=== PATIENT | female | born 1980 | race Caucasian/White ===

== ENCOUNTER 2017-04-03 15:50 | Inpatient (IN) | payer MEDICAID ==
--- NOTE | 2017-04-03 16:22 | CPEKG ---
Heart Rate: 153 RR Interval: 392 P-R Interval: 152 QRSD Interval: 100 QT Interval: 247 QTC Interval: 395 P [place]: 83 QRS [place]: 138 T Wave [place]: -73 EKG Severity - ABNORMAL ECG - EKG Impression: SINUS TACHYCARDIA EKG Impression: RVH WITH SECONDARY REPOLARIZATION ABNORMALITY Electronically Signed By: Adan Trujillo 03-Apr-2017 21:19:50
[2017-04-03] MEDS ORDERED: NS 1,000 ML IV ONE ×3 (16:27)
--- NOTE | 2017-04-03 16:27 | EDPHY ---
H & P Time Seen by Provider: 04/03/17 16:06 HPI/ROS: Chief complaint. Altered mental status HPI. Patient is a 36-year-old female here with her parents. Last seen normal 3 days ago. She lives with her parents but they say she really comes out of her room. However today she was downstairs and talking to imaginary people and telling them that her her sister was dying. She has been tearing up magazines in her room. No injury or trauma. Parents are unaware of drugs or alcohol. She began Prozac 1 month ago and it seemed to be helping. Patient is speaking nonsensically but tells me she has some pain in the right upper quadrant of her abdomen. ROS Constitutional. Generalized weakness Eyes. no problems with vision ENT. no sore throat, no nasal drainage Cardiovascular. no chest pain Respiratory. no shortness of breath, no cough Abdominal. Abdominal pain . no problems urinating MS. no calf pain/swelling, no neck/back pain, no joint pain Skin. no rash Lymph. no swollen glands Neuro. Altered mental status Past Medical/Surgical History: Past medical history is significant for autoimmune hepatitis, hypertension, pancreatitis, chronic abdominal pain Social History: Single, nonsmoker, no alcohol Smoking Status: Never smoked Physical Exam: General Appearance: Alert well-developed female moderate distress vital signs show the patient be afebrile. Heart rate 156 Eyes: Pupils equal and round no pallor or injection. ENT, mucous membranes are dry Respiratory: There are no retractions, lungs are clear to auscultation. Cardiovascular: Regular rate and rhythm. Gastrointestinal: Abdomen is soft right upper quadrant tenderness Neurological: Awake and alert, sensory and motor exams grossly normal. Skin: Warm and dry, no rashes. Musculoskeletal: Neck is supple nontender. Extremities symmetrical, full range of motion. Psychiatric: Patient is not oriented to place or time. There is mild agitation Constitutional: Initial Vital Signs Temperature (C) 36.9 C 04/03/17 15:58 Heart Rate 156 H 04/03/17 15:58 Respiratory Rate 24 H 04/03/17 15:58 Blood Pressure 140/97 H 04/03/17 15:58 O2 Sat (%) 95 04/03/17 15:58 O2 Delivery Mode Room Air Allergies/Adverse Reactions: metoclopramide HCl [From Reglan] Allergy (Unknown, Verified 04/03/17 15:54) prochlorperazine edisylate [From Compazine] Allergy (Unknown, Verified 04/03/17 15:54) prochlorperazine maleate [From Compazine] Allergy (Unknown, Verified 04/03/17 15 :54) promethazine HCl [From Phenergan] Allergy (Unknown, Verified 04/03/17 15:54) Home Medications: Medication Instructions Recorded Diazepam [Valium 5 MG (RX)] 5 mg PO DAILY 09/13/12 Norgestimate-Ethinyl Estradiol 1 each PO DAILY 09/13/12 [Ortho-Cyclen] ONDANSETRON HCL [Zofran 8 mg] 8 mg PO Q8 PRN 09/13/12 Oxycodone HCl/Acetaminophen 1.5 each PO TID 09/13/12 [Percocet 10-325 mg Tablet] Pantoprazole Sodium [Protonix 40mg 40 mg PO DAILY 09/13/12 (RX)] Venlafaxine Xr [Effexor Xr 75MG 225 mg PO DAILY 09/13/12 (RX)] LORazepam [Ativan 1 mg (RX)] 1 - 2 mg PO .Q 6 HRS PRN #12 tab 10/06/12 Ondansetron Odt [Zofran Odt 4 mg 4 mg PO Q4 PRN #15 tab 10/06/12 (RX)] Prozac 20 MG (*) 04/03/17 Medical Decision Making - Diagnostics EKG Interpretation: EKG interpreted by me shows sinus tachycardia with normal interval and axis. QRS is normal. There is no obvious ST elevation or depression. No arrhythmia. Ventricular response is 153 Imaging Results: Imaging Impressions Chest X-Ray 04/03/17 16:30 Impression: Negative. Abdomen Ultrasound 04/03/17 17:20 Impression: Previous cholecystectomy. No significant abnormality seen within the abdomen. Findings discussed with Duy Romero M.D. at 19:37 hour, 04/03/2017. Head CT 04/03/17 17:20 Impression: 1. Normal CT brain without contrast. 2. Consider MRI of the brain without and with contrast enhancement, if there is continued clinical concern. Findings and recommendations discussed with Emergency Department physician, DUY ROMERO at 18:23 hour, 04/03/2017. Final report concurs with initial preliminary interpretation. One-view chest x-ray interpreted by me is negative Noncontrast head CT reviewed by me and discussed with radiologist as normal Procedures: IV normal saline. A 2nd IV is started to be able to better rehydrate the patient as there is obvious severe dehydration and the patient is quite tachycardia 3 L of saline are given. Ativan IV. Procedure: Lumbar puncture. Indication: Altered mental status After verbal informed consent from patient explaining the risks including infection, bleeding, and neurologic damage, a lumbar puncture was performed after the patient was prepped and draped in the usual fashion. The back was anesthetized with 1% lidocaine. Approximately 4 cc of clear fluid was obtained. Opening pressure was not obtained. There were no complications. The procedure was performed by myself. ED Course/Re-evaluation: Re-evaluation at 4:30 a.m. heart rate is down to 126. Patient looks better. She still complains of visual hallucinations. 2nd lactate is ordered as the initial is elevated. Patient is cultured. I have discussed and consulted with Dr. Veloz, hospitalist who will see the patient in the ED and agrees to the admission Patient remained stable on re-evaluation with heart rate about 112-114. Blood pressure stable. She is more alert. Serial evaluations patient is improving. Differential Diagnosis: I considered sepsis, substance it ingestion and withdrawal, intracranial bleeding, meningitis, other sources of infection Critical Care Time: Critical care time exclusive of procedures 1 hour - Data Points Laboratory Results: Laboratory Results 04/03/17 16:15 04/03/17 16:15 04/03/17 04/03/17 04/03/17 17:15 16:48 16:15 WBC RBC Hgb Hct MCV MCH MCHC RDW Plt Count MPV Neut % (Auto) Lymph % (Auto) [place] % (Auto) Eos % (Auto) Baso % (Auto) Nucleat RBC Rel Count Absolute Neuts (auto) Absolute Lymphs (auto) Absolute Monos (auto) Absolute Eos (auto) Absolute Basos (auto) Absolute Nucleated RBC Immature Gran % Immature Gran # PT INR APTT VBG Lactic Acid 6.9 mmol/L H mmol/L (0.7-2.1) Sodium Potassium Chloride Carbon Dioxide Anion Gap BUN Creatinine Estimated GFR Glucose Calcium Total Bilirubin Conjugated Bilirubin Unconjugated Bilirubin AST ALT Alkaline Phosphatase Troponin I Total Protein Albumin Lipase Beta HCG, Qual Urine Color HITESH REJ Urine Appearance HAZY Not Reported Urine pH 6.0 Not Reported (5.0-7.5) Ur Specific [place] 1.019 Not Reported (1.002-1.030) Urine Protein 2+ H Not Reported (NEGATIVE) Urine Ketones 1+ H Not Reported (NEGATIVE) Urine Blood 3+ H Not Reported (NEGATIVE) Urine Nitrate NEGATIVE Not Reported (NEGATIVE) Urine Bilirubin NEGATIVE Not Reported (NEGATIVE) Urine Urobilinogen NEGATIVE EU EU Not Reported (0.2-1.0) Ur Leukocyte Esterase NEGATIVE Not Reported (NEGATIVE) Urine RBC 1-3 /hpf /hpf Not Reported (0-3) Urine WBC 1-3 /hpf /hpf REJ (0-3) Ur Epithelial Cells TRACE /lpf /lpf Not Reported (NONE-1+) Amorphous Sediment PRESENT /hpf /hpf (NONE-1+) Urine Bacteria TRACE /hpf H /hpf (NONE SEEN) Urine Mucus TRACE /lpf /lpf (NONE-1+) Urine Glucose NEGATIVE Not Reported (NEGATIVE) Urine Opiates Screen NON-NEGATIVE H (NEGATIVE) Acetaminophen Urine Barbiturates NEGATIVE (NEGATIVE) Ur Phencyclidine Scrn NEGATIVE (NEGATIVE) Ur Amphetamine Screen NEGATIVE (NEGATIVE) U Benzodiazepines Scrn NON-NEGATIVE H (NEGATIVE) Urine Cocaine Screen NEGATIVE (NEGATIVE) U Marijuana (THC) Screen NEGATIVE (NEGATIVE) Ethyl Alcohol 04/03/17 04/03/17 04/03/17 16:15 16:15 16:15 WBC 22.99 10^3/uL H 10^3/uL (3.80-9.50) RBC 6.14 10^6/uL H 10^6/uL (4.18-5.33) Hgb 17.6 g/dL H g/dL (12.6-16.3) Hct 55.4 % H % (38.0-47.0) MCV 90.2 fL fL (81.5-99.8) MCH 28.7 pg pg (27.9-34.1) MCHC 31.8 g/dL L g/dL (32.4-36.7) RDW 16.0 % H % (11.5-15.2) Plt Count 378 10^3/uL 10^3/uL (150-400) MPV 11.5 fL fL (8.7-11.7) Neut % (Auto) 87.8 % H % (39.3-74.2) Lymph % (Auto) 5.0 % L % (15.0-45.0) [place] % (Auto) 6.2 % % (4.5-13.0) Eos % (Auto) 0.0 % L % (0.6-7.6) Baso % (Auto) 0.3 % % (0.3-1.7) Nucleat RBC Rel Count 1.0 % H % (0.0-0.2) Absolute Neuts (auto) 20.20 10^3/uL H 10^3/uL (1.70-6.50) Absolute Lymphs (auto) 1.15 10^3/uL 10^3/uL (1.00-3.00) Absolute Monos (auto) 1.42 10^3/uL H 10^3/uL (0.30-0.80) Absolute Eos (auto) 0.00 10^3/uL L 10^3/uL (0.03-0.40) Absolute Basos (auto) 0.07 10^3/uL 10^3/uL (0.02-0.10) Absolute Nucleated RBC 0.22 10^3/uL H 10^3/uL (0-0.01) Immature Gran % 0.7 % % (0.0-1.1) Immature Gran # 0.15 10^3/uL H 10^3/uL (0.00-0.10) PT 15.9 SEC H SEC (12.0-15.0) INR 1.27 H (0.83-1.16) APTT 26.3 SEC SEC (23.0-38.0) VBG Lactic Acid Sodium Potassium Chloride Carbon Dioxide Anion Gap BUN Creatinine Estimated GFR Glucose Calcium Total Bilirubin Conjugated Bilirubin Unconjugated Bilirubin AST ALT Alkaline Phosphatase Troponin I Total Protein Albumin Lipase Beta HCG, Qual NEGATIVE Urine Color Urine Appearance Urine pH Ur Specific [place] Urine Protein Urine Ketones Urine Blood Urine Nitrate Urine Bilirubin Urine Urobilinogen Ur Leukocyte Esterase Urine RBC Urine WBC Ur Epithelial Cells Amorphous Sediment Urine Bacteria Urine Mucus Urine Glucose Urine Opiates Screen Acetaminophen Urine Barbiturates Ur Phencyclidine Scrn Ur Amphetamine Screen U Benzodiazepines Scrn Urine Cocaine Screen U Marijuana (THC) Screen Ethyl Alcohol 04/03/17 16:15 WBC RBC Hgb Hct MCV MCH MCHC RDW Plt Count MPV Neut % (Auto) Lymph % (Auto) [place] % (Auto) Eos % (Auto) Baso % (Auto) Nucleat RBC Rel Count Absolute Neuts (auto) Absolute Lymphs (auto) Absolute Monos (auto) Absolute Eos (auto) Absolute Basos (auto) Absolute Nucleated RBC Immature Gran % Immature Gran # PT INR APTT VBG Lactic Acid Sodium 152 mEq/L H mEq/L (134-144) Potassium 4.4 mEq/L mEq/L (3.5-5.2) Chloride 110 mEq/L mEq/L (97-110) Carbon Dioxide 12 mEq/l L mEq/l (22-31) Anion Gap 30 mEq/L H mEq/L (8-16) BUN 25 mg/dL H mg/dL (7-23) Creatinine 1.7 mg/dL H mg/dL (0.6-1.0) Estimated GFR 34 Glucose 209 mg/dL H mg/dL (70-100) Calcium 10.6 mg/dL H mg/dL (8.5-10.4) Total Bilirubin 2.6 mg/dL H mg/dL (0.1-1.4) Conjugated Bilirubin 0.7 mg/dL H mg/dL (0.0-0.5) Unconjugated Bilirubin 1.9 mg/dL H mg/dL (0.0-1.1) AST 1723 IU/L H IU/L (14-46) ALT 461 IU/L H IU/L (9-52) Alkaline Phosphatase 260 IU/L H IU/L (38-126) Troponin I 0.056 ng/mL H ng/mL (0-0.034) Total Protein 8.4 g/dL H g/dL (6.3-8.2) Albumin 5.1 g/dL H g/dL (3.5-5.0) Lipase 200.0 IU/L IU/L (23-300) Beta HCG, Qual Urine Color Urine Appearance Urine pH Ur Specific [place] Urine Protein Urine Ketones Urine Blood Urine Nitrate Urine Bilirubin Urine Urobilinogen Ur Leukocyte Esterase Urine RBC Urine WBC Ur Epithelial Cells Amorphous Sediment Urine Bacteria Urine Mucus Urine Glucose Urine Opiates Screen Acetaminophen < 10 mcg/mL L mcg/mL (10.0-30.0) Urine Barbiturates Ur Phencyclidine Scrn Ur Amphetamine Screen U Benzodiazepines Scrn Urine Cocaine Screen U Marijuana (THC) Screen Ethyl Alcohol < 10 mg/dL mg/dL (0-10) Medications Given: Discontinued Medications Fentanyl (Sublimaze) 100 mcg IVP EDNOW ONE Stop: 04/03/17 19:28 Last Admin: 04/03/17 19:41 Dose: 100 mcg Sodium Chloride (Ns) 1,000 mls @ 0 mls/hr IV EDNOW ONE; Wide Open PRN Reason: Protocol Stop: 04/03/17 16:28 Last Admin: 04/03/17 16:37 Dose: 1,000 mls Sodium Chloride (Ns) 1,000 mls @ 0 mls/hr IV EDNOW ONE; Wide Open PRN Reason: Protocol Stop: 04/03/17 16:28 Last Admin: 04/03/17 16:37 Dose: 1,000 mls Sodium Chloride (Ns) 1,000 mls @ 0 mls/hr IV ONCE ONE; Wide Open PRN Reason: Protocol Stop: 04/03/17 16:28 Last Admin: 04/03/17 16:37 Dose: 1,000 mls Lorazepam (Ativan Injection) 1 mg IVP EDNOW ONE Stop: 04/03/17 17:31 Last Admin: 04/03/17 17:39 Dose: 1 mg Lorazepam (Ativan Injection) 1 mg IVP EDNOW ONE Stop: 04/03/17 19:28 Last Admin: 04/03/17 19:42 Dose: 1 mg Departure - Departure Disposition: [facility] Inpatient Acute Clinical Impression: Altered mental status, unspecified Qualifiers: Altered mental status type: delirium Qualified Code(s): R41.0 - Disorientation , unspecified Condition: Fair
[2017-04-03 16:36] LABS: % IMMATURE GRANULYOCYTES 0.7 % (0.0-1.1); ABSOLUTE IMMATURE GRANULOCYTES 0.15 10^3/uL (0.00-0.10); ABSOLUTE NRBC COUNT 0.22 10^3/uL (0-0.01); ADD DIFF? NO; ADD MORPH? NO; ADD SCAN? NO; ATYPICAL LYMPHOCYTE FLAG 0 (0-99); FRAGMENT RBC FLAG 0 (0-99); HEMATOCRIT 55.4 % (38.0-47.0); HEMOGLOBIN 17.6 g/dL (12.6-16.3); LEFT SHIFT FLG 10 (0-99); LIPEMIA HEMOLYSIS FLAG 80 (0-99); MEAN CELL HEMOGLOBIN 28.7 pg (27.9-34.1); MEAN CELL HEMOGLOBIN CONCENTR. 31.8 g/dL (32.4-36.7); MEAN CELL VOLUME 90.2 fL (81.5-99.8); MEAN PLATELET VOLUME 11.5 fL (8.7-11.7); PLATELET CLUMPS FLAG 0 (0-99); PLATELET COUNT 378 10^3/uL (150-400); RED BLOOD CELL COUNT 6.14 10^6/uL (4.18-5.33)
[2017-04-03 16:43] LABS: ALANINE AMINOTRANSFERASE 461 IU/L (9-52); ALBUMIN 5.1 g/dL (3.5-5.0); ALKALINE PHOSPHATASE 260 IU/L (38-126); ANION GAP 30 mEq/L (8-16); BILIRUBIN,TOTAL 2.6 mg/dL (0.1-1.4); BILIRUBIN-CONJUGATED 0.7 mg/dL (0.0-0.5); BILIRUBIN-UNCONJUGATED 1.9 mg/dL (0.0-1.1); CALCIUM 10.6 mg/dL (8.5-10.4); CARBON DIOXIDE 12 mEq/l (22-31); CHLORIDE 110 mEq/L (97-110); CREATININE 1.7 mg/dL (0.6-1.0); ETHANOL SERUM < 10 mg/dL (0-10); GLOMERULAR FILTRATION RATE 34; GLUCOSE 209 mg/dL (70-100); POTASSIUM 4.4 mEq/L (3.5-5.2); SODIUM 152 mEq/L (134-144); TOTAL PROTEIN 8.4 g/dL (6.3-8.2)
[2017-04-03 16:50] LABS: APTT 26.3 SEC (23.0-38.0); INR 1.27 (0.83-1.16); PROTIME(PATIENT) 15.9 SEC (12.0-15.0)
[2017-04-03 16:54] LABS: TROPONIN I 0.056 ng/mL (0-0.034)
[2017-04-03 17:02] LABS: ASPARTATE AMINOTRANSFERASE 1723 IU/L (14-46)
[2017-04-03 17:25] LABS: COLOR AMBER; LEUKOCYTE ESTERASE,URINE NEGATIVE (NEGATIVE); NITRITE,URINE NEGATIVE (NEGATIVE)
[2017-04-03] MEDS ORDERED: LORazepam 2 MG/ML INJ IVP ONE ×2 (17:30→19:27)
[2017-04-03 17:34] LABS: AMORPHOUS PRESENT /hpf (NONE-1+); BACTERIA TRACE /hpf (NONE SEEN); MUCUS TRACE /lpf (NONE-1+)
[2017-04-03 17:51] LABS: LACGHOST ORDER
[2017-04-03] MEDS ORDERED: ACETAMINOPHEN 325 MG TAB PO PRN (18:02)
[2017-04-03] MEDS ORDERED: ONDANSETRON 4 MG/2 ML VIAL IVP PRN (18:02)
[2017-04-03] MEDS ORDERED: fentaNYL 100 MCG/2 ML INJ IVP ONE (19:27)
[2017-04-03] MEDS ORDERED: D50W 25 GM/50 ML SYR IVP PRN (19:42)
[2017-04-03] MEDS: NS 1,000 ML IV SCH (19:42)
[2017-04-03 19:44] LABS: PROCALCITONIN 9.81 ng/mL (0.02-0.10)
[2017-04-03 19:52] LABS: ANION GAP 14 mEq/L (8-16); CALCIUM 8.4 mg/dL (8.5-10.4); CARBON DIOXIDE 16 mEq/l (22-31); CHLORIDE 120 mEq/L (97-110); CREATININE 1.4 mg/dL (0.6-1.0); GLOMERULAR FILTRATION RATE 43; GLUCOSE 123 mg/dL (70-100); POTASSIUM 3.8 mEq/L (3.5-5.2); SODIUM 150 mEq/L (134-144)
[2017-04-03] MEDS ORDERED: D10W 250 ML PRN HYPOGLYCEMIA IV (20:00)
[2017-04-03 20:02] LABS: TROPONIN I 0.172 ng/mL (0-0.034)
--- NOTE | 2017-04-03 20:17 | GHP ---
[f rep st] HISTORY AND PHYSICAL DATE OF ADMISSION: 04/03/2017 CHIEF COMPLAINT: Encephalopathy, hallucinations, tachycardia. HPI: a 36-year-old female with prior diagnosis of autoimmune hepatitis, depression/anxiety, IBS who was brought in by her mother for confusion. She was last seen normal 3 days ago by her parents; she lives in the downstairs portion of their home. She called her mom down today saying she was confused. She was hallucinating and seeing her sister who lives out of states. "People outside having sex". She has also been ripping up magazines into small pieces. In the ER, she told me she was seeing people in the corner of the room. c/o fever, dysuria, and sore throat. Has been having nausea and nonbloody emesis which is standard for her "flares of autoimmune hepatitis." She started Prozac 3 weeks ago and on chronic pain medications including MS Contin and Percocet. Denies drugs or alcohol use. Denies any suicidal or homicidal ideations. In 2013, her fiance passed from brain cancer and has had issues with depression since that time; recently started Prozac three weeks ago. She works in an animal alf volunteering was scratched on left arm a few days ago. Also had a fall tripping over a large dog. Denies Tylenol use and occasional Advil. It is unclear if has true diagnosis of autoimmune hepatitis. Was seen by GI at [facility] a week ago and had normal LFTs at that time and negative autoimmune labs. (Dr Banuelos reviewed these OSH records for me) and will obtain full records. They had planned for a CT scan of the abdomen. REVIEW OF SYSTEMS: I completed a 10-point review of systems, negative except as noted in HPI. PAST MEDICAL HISTORY: IBS, depression/anxiety, autoimmune hepatitis in 2000. Recently seen by a [employer] at [facility]. Chronic abdominal pain. PAST SURGICAL HISTORY: Cholecystectomy. SOCIAL HISTORY: Lives in [place] with her parents. She denies tobacco or illicits. Rare alcohol. FAMILY HISTORY: Diabetes, maternal grandmother with congestive heart failure. MEDICATIONS: MS Contin 30 t.i.d., Ativan 1 mg last prescribed 03/27, Percocet, Prozac started 3 weeks ago. No longer takes Effexor. Pepto p.r.n. and Advil p.r.n. PHYSICAL EXAM: VITAL SIGNS: Temperature 36.9, blood pressure 140/97, heart rate 150s rule out 135, respirations 18-24 and 95% on room air. GENERAL: Ill appearing, diaphoretic. HEENT: Pupils enlarged, right greater than left but reactive. Very dry mucous membranes. Oropharynx is clear. No ulcerations. CV : Tachy but regular. No murmurs, gallops, or rubs. LUNGS: Clear. No wheezes or crackles. ABDOMEN: Epigastric tenderness. Right upper quadrant tenderness with minimal palpation. Positive bowel sounds. : zavala in place with brown urine No suprapubic tenderness but, bilateral CVA tenderness. MUSCULOSKELETAL: 5/5 upper and lower extremity strength. SKIN: Bruising over bilateral knees, left shoulder. Left forearm with several scratch armendariz scabbed over. Minimal surrounding erythema, but tender with palpation. NEURO: 2 through 12 intact. Horizontal nystagmus. Negative asterixis. Follows commands. Normal sensation to touch. PSYCHIATRIC: She is alert to place, year , not to the month. LABS: Sodium 152, potassium 4.4, chloride 110, carbon dioxide 12, anion gap 32 , BUN is 25, creatinine is 1.7, glucose 209, calcium 10.6, total bilirubin 2.6, conjugated 0.7, unconjugated 1.9, AST 1723, ALT 461, alkaline phosphatase 260. Troponin 0.056. Total protein 8.4, albumin 5.1. Lipase 200. Procalcitonin pending. CK is pending. WBC is 22, hemoglobin 17, hematocrit 54, platelets 378. INR is 1.2, PT 15, PTT 26. Lactate 6.9, repeat 4.7. Urinalysis: +2 protein, +1 ketones, +3 blood. Tox: Negative Tylenol and alcohol. Positive for opioids and benzodiazepines. Hep serologies are pending. Head CT: Normal CT brain without contrast. Chest x-ray, personally reviewed by me. Lungs are clear. No evidence of effusion, edema or opacity. EKG personally reviewed by me. Sinus tach, RVH. ASSESSMENT AND PLAN: 1. Severe sepsis: WBC 22, tachy and fever. UA, CXR. Procalcitonin >9. I suspect source could be cat scratch on left arm and concern for Pasteurella. I discussed antimicrobials with Dr. Doss who recommended Vanc and Meropenem. Blood cultures pending, 2. Acute encephalopathy: due to sepsis vs medications. Recently started Prozac. CT head was negative. Urinalysis and chest x-ray negative. Blood cultures are pending. Dr. Romero will perform LP as there are case studies of Pasteurella with meningitis. Pharm confirm home med list. 3. Leukocytosis: WBC 22, no infectious source found at this time, but again, cat scratch is concerning. Plan as stated above. Blood cultures pending. 4. Acute kidney injury: due to rhabdo and dehydration. Aggressive IVFs, repeat. 5. Rhabdo: CK>20372.. Likely due to sepsis. Prozac may contribute since recently started. Aggressive IVFs, monitie K, Phos 6. Transaminitis. Suspect due to sepsis, but prozac recently started.. Labs a week ago were normal per Dr. Banuelos's report. Tylenol level is negative. Abdominal ultrasound with Doppler negative for thrombosis and hep serologies negative. 7. Tachycardia: Heart rate up to 150s. Due to infection, dehydration. Responding to fluids. Monitor on telemetry. Could consider benzo withdrawal but she was only prescribed 9 tabs a week ago. 8. History of autoimmune hepatitis: recently seen by GI at [facility] last week. At that time, LFTs and autoimmune labs normal. Unclear if this is a true diagnosis. Will obtain these records. 9. MetabolicaAnion gap acidosis: due to lactic acid production with rhabdo , plus sepsis, dehydration. lactate elevated at 6.9 --> 4.7 with IVFs. Check an ABG, a serum osm, repeat lactate 10. Hypovolemic hypernatremia: Sodium is elevated at 152. Patient is very dry on exam along with LINDA. She received 3 L of fluid in the emergency room. We will repeat BMP. 11. Indeterminate troponin: suspect demand in setting of sepsis. Denies CP. Trend trops. TTE in morning for WMA 12. Hyperglycemia. Serial glucose, sliding scale insulin. 13. Diet: N.p.o. 14. DVT prophylaxis. SCDs. DISPOSITION: Patient warrants ICU admission given acute encephalopathy, tachycardia and transaminitis warranting telemetry and further imaging. Critical care time spent: 90 min. 30 min bedside with patient. remaining time d/ w Dr. Romero, Lakisha Short and hx from mother /[id number]/MODL MTDD
[2017-04-03 20:21] LABS: LACTATE DEHYDROGENASE > 10000 IU/L (313-618)
[2017-04-03 20:41] LABS: CK-MB INTERPRETATION NEGATIVE (NEGATIVE)
[2017-04-03 20:45] LABS: CSF APPEARANCE CLEAR (CLEAR); CSF COLOR COLORLESS (COLORLESS); WBC, CSF 0 /mm3 (0-5)
[2017-04-03 20:49] LABS: PROTEIN, CSF 27 mg/dL (12-60)
[2017-04-03 20:50] LABS: CSF SUPERNATANT COLORLESS (COLORLESS)
[2017-04-03] MEDS: MEROPENEM 500 MG in NS 100 ML IV SCH ×2 (20:50→21:14)
[2017-04-03] MEDS: VANCOMYCIN HCL/NORMAL SALINE 250 ML IV SCH (22:33)
[2017-04-04 00:13] LABS: TROPONIN I 0.172 ng/mL (0-0.034)
[2017-04-04 00:38] LABS: LACTATE DEHYDROGENASE > 10000 IU/L (313-618)
[2017-04-04] MEDS: NS 1,000 ML IV SCH ×2 (01:04→05:33)
[2017-04-04] MEDS: HYDROmorphONE/DILAUDID 1 MG/ML SYR IVP PRN (01:04)
[2017-04-04 01:21] LABS: ANION GAP 12 mEq/L (8-16); CALCIUM 8.2 mg/dL (8.5-10.4); CARBON DIOXIDE 19 mEq/l (22-31); CHLORIDE 121 mEq/L (97-110); CREATININE 1.8 mg/dL (0.6-1.0); GLOMERULAR FILTRATION RATE 32; GLUCOSE 104 mg/dL (70-100); POTASSIUM 3.8 mEq/L (3.5-5.2); SODIUM 152 mEq/L (134-144)
[2017-04-04 01:24] LABS: CALCULATED OXYGEN SATURATION 62 % (92-95); O2 CONCENTRATIION 21 % (0-100)
[2017-04-04 02:06] LABS: CK-MB INTERPRETATION NEGATIVE (NEGATIVE)
[2017-04-04 05:43] LABS: % IMMATURE GRANULYOCYTES 0.7 % (0.0-1.1); ABSOLUTE IMMATURE GRANULOCYTES 0.18 10^3/uL (0.00-0.10); ADD DIFF? NO; ADD MORPH? NO; ADD SCAN? NO; ATYPICAL LYMPHOCYTE FLAG 0 (0-99); FRAGMENT RBC FLAG 20 (0-99); HEMATOCRIT 36.6 % (38.0-47.0); HEMOGLOBIN 11.8 g/dL (12.6-16.3); LEFT SHIFT FLG 40 (0-99); LIPEMIA HEMOLYSIS FLAG 80 (0-99); MEAN CELL HEMOGLOBIN 28.6 pg (27.9-34.1); MEAN CELL HEMOGLOBIN CONCENTR. 32.2 g/dL (32.4-36.7); MEAN CELL VOLUME 88.8 fL (81.5-99.8); PLATELET CLUMPS FLAG 0 (0-99); PLATELET COUNT 187 10^3/uL (150-400); RED BLOOD CELL COUNT 4.12 10^6/uL (4.18-5.33); RED CELL DISTRIBUTION WIDTH 14.9 % (11.5-15.2)
[2017-04-04 05:49] LABS: ALANINE AMINOTRANSFERASE 477 IU/L (9-52); ALBUMIN 2.7 g/dL (3.5-5.0); ALKALINE PHOSPHATASE 126 IU/L (38-126); ANION GAP 13 mEq/L (8-16); BILIRUBIN,TOTAL 1.3 mg/dL (0.1-1.4); CALCIUM 7.5 mg/dL (8.5-10.4); CARBON DIOXIDE 16 mEq/l (22-31); CHLORIDE 120 mEq/L (97-110); CREATININE 1.9 mg/dL (0.6-1.0); GLOMERULAR FILTRATION RATE 30; GLUCOSE 76 mg/dL (70-100); POTASSIUM 3.8 mEq/L (3.5-5.2); SODIUM 149 mEq/L (134-144); TOTAL PROTEIN 4.9 g/dL (6.3-8.2)
[2017-04-04 06:22] LABS: ASPARTATE AMINOTRANSFERASE 1989 IU/L (14-46)
[2017-04-04 06:42] LABS: CK-MB INTERPRETATION NEGATIVE (NEGATIVE)
[2017-04-04] MEDS: ONDANSETRON DISINTEGRATING 4 MG TAB PO PRN (08:36)
[2017-04-04] MEDS: VANCOMYCIN HCL/NORMAL SALINE 250 ML IV SCH (08:42)
[2017-04-04] MEDS: MEROPENEM 500 MG in NS 100 ML IV SCH ×2 (10:00→20:23)
[2017-04-04] MEDS ORDERED: fentaNYL 50 MCG PATCH TD SCH (10:45)
--- NOTE | 2017-04-04 11:10 | HOSPPROG ---
Hospitalist Progress Note Assessment/Plan: 36 yo female admitted after being found down by her mother in a hallucinatory state. Initially, concern for sepsis and source thought due to cat scratch per pt history. However, further hx reveals she is missing at least 30 pills from her MS Contin Rx and was recently started on Prozac. Exam findings c/w serotonin syndrome, possible SSRI overdose. SIRS / ?Sepsis - lactate rapidly normalized with aggressive IVF's. SIRS possibly due to hypoperfusion / volume depletion in setting of rhabdo / ? overdose / found down. Tachycardia / tachypnea resolved. WBC's still elevated , query stress reaction. CSF neg for infection. CXR neg. UA clear. Abd u/s unrevealing. Could be infection from cat scratch though this wound is suspicious for being self-induced. -cont atbx for now while awaiting culture data -appreciated ID assistance Concern for polysubstance overdose - awaiting pill count on all her pill bottles. Has h/o psych problems, currently unstable from mental health standpoint, ?juanis. -prn ativan for agitation -Will need TLC / psych eval and probable inpt placement when medically clear. -M1 hold if she tries to leave. ?Serotonin syndrome - with muscle rigidity / fasciculations, hyperreflexia and fever. Recently started Prozac. Awaiting pill count. -stop SSRI -supportive care / aggressive IVF's Rhabdomyolysis with LINDA - found down. CK >30,000. Phos and K normal, Cr on the rise. Ca low, though will defer replacement due to risk of hypercalcemia with release of Ca from recovering muscle cells as condition improves. Uric acid 8.3. Discussed with Renal who does not recommend alkalinization or allopurinol unless uric acid continues to rise. -cont NS at 250/hr -monitor uop -follow lytes -formal nephrology consult in am if renal function worsens or electrolyte abnormalities develop Chronic pain with opioid dependence - holding MS Contin and Oxycodone. -will resume 1/2 dose of fentanyl to prevent w/d AGMA - CO2 on the rise, gap closed, though was initially 30. Elevated LFT's - suspect shock liver. Cont aggressive IVF's, follow. DVT PPLX - SONDRA Full code Dispo - cont inpt / ICU Subjective: Pt is restless, a bit agitated, hallucinatory. Thinks there are worms coming out of her zavala. No fevers. Denies suicidality or self harm. Objective: Vital Signs Temp Pulse Resp BP Pulse Ox 37 C 88 14 123/94 H 95 04/04/17 04:00 04/04/17 10:00 04/04/17 10:00 04/04/17 10:00 04/04/17 10:00 Microbiology 04/03/17 20:10 Gram Stain - Final Cerebral Spinal Fluid Laboratory Results 04/04/17 05:20 04/04/17 05:20 04/03/17 04/04/17 04/05/17 05:59 05:59 05:59 Intake Total 5350 Output Total 1550 Balance 3800 PT 15.9 SEC (12.0-15.0) H 04/03/17 16:15 INR 1.27 (0.83-1.16) H 04/03/17 16:15 - Physical Exam Constitutional: other (restless) Eyes: PERRL Ears, Nose, Mouth, Throat: moist mucous membranes Cardiovascular: regular rate and rhythym Respiratory: no respiratory distress, clear to auscultation Gastrointestinal: normoactive bowel sounds, soft, non-tender abdomen Skin: warm, other (Left wrist with focal wound and multiple linear wounds coming from it, mild surrounding induration) Musculoskeletal: other (3+ patellar DTR's with clonus) Neurologic: other (facial muscle fasciculations) Psychiatric: agitated, poor insight, other (hallucinatory) ICD10 Worksheet Patient Problems: Problems Problem Status Onset Altered mental status, unspecified Acute
[2017-04-04 12:15] LABS: URIC ACID 8.3 mg/dL (2.5-6.8)
[2017-04-04 12:27] LABS: TROPONIN I 0.08 ng/mL (0-0.034)
--- NOTE | 2017-04-04 13:06 | GCON ---
[f rep st] CONSULTATION INPATIENT INFECTIOUS DISEASE CONSULTATION REFERRING PHYSICIAN: Susi Veloz MD REASON FOR REFERRAL: Possible sepsis. HISTORY OF PRESENT ILLNESS: Patient is a 36-year-old female with a past medical history of autoimmu ne hepatitis, depression, anxiety, and IBS, who was brought into the emergency room for confusion. The patient was seen by her parents 3-4 days prior to that. She lives in a downstairs apartment of their home in [place]. She was found by her mother on the day of admission confused and hallucina ting. She complained of fever, dysuria, and sore throat. She started Prozac 3 weeks ago for depres donta. Her mother relates that she had seemed better in the last few days. Incidentally her fiance from brain cancer 3 years ago. The depression has been significantly worse since then. She was started on vancomycin and meropenem out of the emergency room in phone consultation with my self. 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 PAST MEDICAL HISTORY: 1. Irritable bowel syndrome. 2. Depression and anxiety. 3. Diagnosis of autoimmune hepatitis in 2000. Evaluation by Gastroenterology recently with review of labs notes stability. 4. Chronic abdominal pain. PAST SURGICAL HISTORY: Status post cholecystectomy. ANTIBIOTICS: 1. Vancomycin. 2. Meropenem. ALLERGIES: Patient is allergic to metoclopramide, prochlorperazine, promethazine. SOCIAL HISTORY: The patient lives in [place] with her parents. She denies any tobacco, only rare alcohol use, and no illicit drugs. FAMILY HISTORY: Reviewed but noncontributory. REVIEW OF SYSTEMS: Other than that detailed above in the history of present illness, a comprehensiv e 10-system review is negative. PHYSICAL EXAMINATION: VITAL SIGNS: Temperature maximum is 38.3. Temperature current is 37.0. Hea rt rate is 98. Respiratory rate is 31. Blood pressure is 132/87. GENERAL: Well-formed, well-akash shed, somewhat confused female in no acute distress. She is mildly toxic in appearance. She is angela rt and oriented to person and place, not oriented to time. She has a pleasant demeanor. HEENT: Nor mocephalic for age. Atraumatic. No scleral icterus. No oral lesion or drainage from the nares. E yes, lids, and conjunctivae are within normal limits. Pupils are equal and round bilaterally. NECK : Supple. No meningismus. LUNGS: Clear to auscultation bilaterally with good effort. HEART Tachycardic but regular. No murmur, rub, or gallop noted. No significant peripheral edema. ABDOMEN: Soft. Noted tenderness right upper quadrant. No rebound. No masses. SKIN: Warm and dr y to the touch. No rash or lesion noted. MUSCULOSKELETAL: No muscle belly tenderness is noted. N o joint enlargement, effusion, or arthritis are seen. NEURO: Cranial nerves 2-12 seem to be intact . Peripheral sensation intact in extremities. The patient is notably hyperreflexic with patellar r eflexes bilaterally. LABORATORY DATA: Patient has a CBC dated 04/04/2017. Shows a white blood cell count of 24.8, hemog lobin of 11.8, hematocrit of 36.6, and a platelet count of 187. Differential is left-shifted with 8 4% segmented neutrophils. Serum chemistries on 04/04/2017 show sodium of 149, potassium of 3.8, chl oride of 120, bicarbonate of 16, BUN of 32, creatinine of 1.9. AST is 1989. ALT is 477. Creatine kinase is greater than 30,000. Procalcitonin is elevated at 9.81. Urinalysis shows 3+ blood, 2+ pr otein, 1-3 red cells, 1-3 white cells, trace bacteria. Spinal tap on 04/03/2017, shows no white blo od cells, 42 red blood cells. Glucose 115, total protein 27. Drug screen from 04/03 is non negativ e for opiates and benzodiazepines. Hepatitis panel is negative. HIV is negative. ASSESSMENT: Tachycardia, agitation, fever and hyperreflexia. Although this could be a sepsis prese ntation, I am more concerned based on examination and history that this is a failed suicide attempt. Patient's injury on the inside of her left wrist is not consistent with parallel lacerations from cat scratch. There are multiple single attempt lacerations at the same point. The presentation wit h fever and hyperreflexia and tachycardia with hallucinations could be very consistent with serotoni n syndrome. The patient was recently started on Prozac, a selective serotonin reuptake inhibitor. The patient had a pill bottle in her purse of morphine sulfate Contin with 5 pills remaining. It wa s a 90 count fill less than 2 weeks ago. She should have with proper scheduling 50 some odd pills r emaining. Discussed with mother to ask father to obtain the other pill bottles from her residence i n order to perform a pill count of the other medications that she is on. Discussed this case in [facility] with Dr. Junie Alexandre, hospitalist. We will continue the vancomycin and meropenem for now, alth ough I suspect we can take these drugs off in the next 24 hours once the true etiology for presentat ion is more firmly established. PLAN: 1. Continue meropenem. 2. Discontinue vancomycin. 3. Follow up with psychiatric evaluation. 4. Follow up with obtaining pill bottles and pill counts. /[id number]/MODL
[2017-04-04] MEDS: fentaNYL 25 MCG PATCH TD SCH (13:11)
[2017-04-04] MEDS: FAMOTIDINE 20 MG/NACL 50 ML IV SCH (13:11)
[2017-04-04] MEDS: HEPARIN 5,000 UNIT/0.5 ML SYR SC SCH ×2 (13:12→20:23)
--- NOTE | 2017-04-04 13:48 | ECHO ---
[id number] + + [address] : : [place] [address] : : [phone] + Adult Echocardiographic Report + ------+ :Name: DIEGO ARRIAGA EStudy Date: 04/04/2017 07:34 AM : : Hospital Admission Number: [id number] Locatio n: 252: :: 1980 Gender: Female Height: 63 in : :Age: 36 yrs Race: WH Weight: 140 lb : :Reason For Study: Elevated troponin/tachycardia/eval for WMA : : BSA: 1.7 meters 2 : + ------+ MMode/2D Measurements \T\ Calculations IVSd: 0.47 cm LVIDd: 5.1 cm FS: 35.0 % Ao root diam: LVPWd: 0.60 cm LVIDs: 3.3 cm EDV(Teich): 3.1 cm 126.4 ml LA dimension: ESV(Teich): 3.2 cm 45.6 ml EF(Teich): 64.0 % LVLd ap4: 6.9 cm SV(MOD-sp4): EDV(MOD-sp4): 44.0 ml 61.0 ml LVLs ap4: 5.2 cm ESV(MOD-sp4): 17.0 ml EF(MOD-sp4): 72.1 % Normal Measurement Values: + + :LVIDd (3.5-5.7cm) IVSd (0.6-1.1cm) LVPWd (0.6-1.1cm) Aortic Root (2.0-3.7cm)Left Atrium (1.5-4.0cm): :LV Vol(d) (76-115ml) LV Vol(s) (29-48ml) Ejec Fraction (50-65%)PV Aaron (0.6- 1.2m/s) TV Aaron (0.4-1.0m/s) : :MV E Aaron (0.8-1.0m/s)MV A Aaron (0.3-1.0m/s)LVOT Aaron (0.7-1.2m/s) Asc Ao Aaron ( 0.9-1.8m/s) : + + Doppler Measurements \T\ Calculations MV E max aaron: 97.2 cm/sec Ao V2 max: 115.4 cm/sec TR max aaron: 214.5 cm/sec MV A max aaron: 52.8 cm/sec Ao max P.3 mmHg TR max P.4 mmHg MV E/A: 1.8 RAP systole: 5.0 mmHg RVSP(TR): 23.4 mmHg Left Ventricle The left ventricle is normal in size. There is normal left ventricular wall thickness. Left ventricular systolic function is normal. Ejection Fraction = 60-65%. No regional wall motion abnormalities noted. Right Ventricle The right ventricle is normal in size and function. Atria The left atrial size is normal. Right atrial size is normal. The interatrial septum is intact with no evidence for an atrial septal defect. Mitral Valve The mitral valve is normal in structure and function. There is no evidence of mitral valve prolapse. There is no mitral valve stenosis. There is trace mitral regurgitation. Tricuspid Valve Normal tricuspid valve. There is mild tricuspid regurgitation. Aortic Valve The aortic valve opens well. There is no aortic stenosis. There is no aortic insufficiency. Pulmonic Valve The pulmonic valve is normal in structure and function. There is no pulmonic valvular regurgitation. Great Vessels The aortic root is normal size. Pericardium/Pleural There is no pericardial effusion. Conclusion A complete two-dimensional transthoracic echocardiogram was performed (2D, M-mode, Doppler and color flow Doppler). The study was technically difficult. Left ventricular systolic function is normal. Ejection Fraction = 60-65%. There is trace mitral regurgitation. There is mild tricuspid regurgitation. Final Reading Physician: Salvador Montenegro signed on 04/04/2017 01:47 PM Ordering Physician: Susi Veloz Performed By: Simona Almaguer, RIGOBERTO
[2017-04-04 14:47] LABS: HEPATITIS Bs Ab QUANT <5.0 mIU/mL
[2017-04-04 16:15] LABS: ALBUMIN 2.8 g/dL (3.5-5.0); ANION GAP 14 mEq/L (8-16); CALCIUM 8.1 mg/dL (8.5-10.4); CARBON DIOXIDE 14 mEq/l (22-31); CHLORIDE 119 mEq/L (97-110); CREATININE 2.2 mg/dL (0.6-1.0); GLOMERULAR FILTRATION RATE 25; GLUCOSE 62 mg/dL (70-100); POTASSIUM 3.8 mEq/L (3.5-5.2); SODIUM 147 mEq/L (134-144)
--- NOTE | 2017-04-04 16:26 | GCON ---
[f rep st] CONSULTATION PULMONARY CRITICAL CARE CONSULTATION DATE OF CONSULTATION: 04/04/2017 REASON FOR CONSULTATION: Abnormal mental status, possible drug overdose, rhabdomyolysis. HISTORY: The patient is a 36-year-old with a history of depression and anxiety, chronic abdominal p ain, and autoimmune hepatitis. She lives in [place] in her own apartment, apparently in the same house as her mother. She was found down by her mother yesterday, confused and hallucinating. She w as brought to the emergency department. There, she complained of sore throat, possible fever and po ssible dysuria. She stated she also had some nausea and vomiting. She apparently had multiple miss ing pills from her MS-Contin and Percocet prescriptions, raising the possibility of a drug overdose. However, she denied this and denied suicidal ideation. She was also found to have a laceration re lated to her left wrist. She is right-handed. On laboratory evaluation, she was found to have acute renal failure, rhabdomyolysis with a total CPK of greater than 30,000, significantly elevated liver function studies, elevated BUN and creatinine, and a leukocytosis. Initial lactate was 6.9. CT scan of the head was normal. The patient was admitted to the intensive care unit. She has been treated for sepsis and has receiv ed over 4 L of fluid. Vancomycin and meropenem were empirically started. She was felt to be dehydr ated, and fluids were also administered for this and for rhabdomyolysis. The urine has not been alk alinized. She was also felt possibly to have taken excessive amounts of Prozac, and that possibly h er abnormal mental status was related to a serotonin syndrome. Since admission, she has been stable. Blood pressures are normal to high. She is on room air. She remains intermittently tachycardic. PAST MEDICAL HISTORY: Remarkable for possible autoimmune hepatitis. She recently had a GI workup a ginny Arthur. There is a history of depression and anxiety, irritable bowel, chronic abdominal pain, an d chronic narcotic use. MEDICATIONS: Medications on admission included p.r.n. Ativan, a fentanyl patch, oxycodone, sustaine d-release morphine, Protonix, and Prozac. She also takes Zofran on an as-needed basis. ALLERGIES: Metoclopramide, Compazine, Phenergan. SOCIAL HISTORY: The patient lives in her own apartment below her mother. She is a nonsmoker. She apparently does not use drugs. Alcohol intake is rare. She apparently had a fiance who in 2013. She works at an animal alf. She says that she was scratched on the left wrist by a c at at the alf a number of days ago. FAMILY HISTORY: Diabetes, congestive heart failure. REVIEW OF SYSTEMS: A 10-point review of systems is negative, except as mentioned above. She has allen d a cholecystectomy. No other major surgeries. She has no known heart or lung disease, no thromboe mbolic disease, renal disease, etc., previously. GI issues are as outlined above. PHYSICAL EXAMINATION: GENERAL: Reveals a young woman who is sitting slouched in a chair. She is a wake, alert, and appropriately responsive. She is oriented x3. However, responses are somewhat leavitt gential. She states she continues to hallucinate and sees vague people. VITAL SIGNS: Blood pressu re is 125/88, heart rate 110, with sinus tachycardia on the monitor. Respiratory rate is 16. Room air saturations are 95%. HEENT: Unremarkable for lymphadenopathy or thyromegaly. There is no jugu lar venous distention. Pupils are equal. CHEST: Clear bilaterally. Excursions with voluntary nicole p breathing are good. HEART: Tachycardic and regular. There is a soft systolic murmur, no gallops . ABDOMEN: Relatively soft and minimally tender in the epigastric area. Bowel sounds are present but reduced. EXTREMITIES: Unremarkable for edema, cords, or tenderness. GENITOURINARY: A Robin c atheter is in place with excellent urine output. NEUROLOGIC: Nonfocal. She is oriented x3 but is somewhat confused about recent events. There is a deep scratch on the inside of the left arm over t he wrist. There is some surrounding erythema, but no evidence of cellulitis. DATABASE: CT scan of the head on admission was unremarkable. Chest x-ray was clear. Abdominal ult rasound showed a previous cholecystectomy. The kidneys appeared normal. There was no evidence of s plenomegaly. Cardiac echo was normal. Ejection fraction was 60%. There was mild to trace valvular regurgitation related to the mitral and tricuspid valves. The valves were otherwise normal. ASSESSMENT: 1. Abnormal mental status. The reasons for this are somewhat unclear. A drug overdose is certainl y possible with opiates and possibly Prozac. She appears to be missing significant pills from her M S-Contin prescription. Missing pills related to Prozac need to be evaluated once pill bottles are b rought in. She was volume depleted on admission with evidence of rhabdomyolysis. This may be secon marely to prolonged downtime as she had not been seen for 2-3 days. She does have evidence of acute r enal insufficiency. This may be related to a hemoglobin pigment nephropathy (?). She is receiving intravenous fluids for renal protection. She has not received bicarbonate. 2. Rhabdomyolysis. Please see the comments above. Aggressive intravenous fluids are being given. Renal function is being followed. 3. Acute renal failure secondary to volume depletion/dehydration and rhabdomyolysis. Creatinine wa s 1.4 following admission and is 1.9 today. Fluids will be continued. If creatinine continues to r ise, renal consultation may be required. Urine output will be followed, along with renal function s tudies. 4. Elevated transaminases. Query shock liver versus a toxic hepatitis secondary to drugs. The for karla is more likely. Liver function studies will be followed. 5. Possible suicide attempt (?). She denies this. However, the missing pills, the deep scratch on her left wrist, etc., all suggest that this may be possible. She is not trying to leave. An M1 ho ld is not indicated but may be if she insists on leaving. Once medically clear, TLC evaluation will be required. 6. Lactic acidosis. Possibly secondary to a prolonged downtime, possible sepsis. She has been giv en fluids. Broad-spectrum antibiotics are being given. Steroids do not appear to be indicated reba jarvisly. 7. DVT prophylaxis: On subcu heparin. 8. Gastrointestinal prophylaxis: On famotidine. PLAN AND RECOMMENDATIONS: The patient will be kept in the intensive care unit. She will be given i ntravenous fluids at 250 mL/h, more if needed. Urine output will be followed. Alkalinization of th e urine will be considered; however, there is no absolute indication for this at the current time. Famotidine will be given for GI prophylaxis, adjusted for renal function. Ativan will be continued as needed for agitation. Laboratory will be followed. Further assessment regarding depression and possible suicidal ideation will be made after her mental status clears. Her home medication pill co unts will be reviewed. Prior to discharge, TLC or psychiatric evaluation likely will be needed. Fu rther plans and recommendations will be made based on her progress over the next 12-24 hours. /[id number]/MODL
[2017-04-04 17:01] LABS: CK-MB INTERPRETATION NEGATIVE (NEGATIVE)
[2017-04-04] MEDS: LORazepam 1 MG TAB PO PRN (17:11)
[2017-04-04] MEDS ORDERED: VANCOMYCIN 750 MG in D5W 150 ML IV SCH (20:00)
[2017-04-05] MEDS: LORazepam 1 MG TAB PO PRN ×4 (01:09→19:35)
[2017-04-05 04:11] LABS: % IMMATURE GRANULYOCYTES 0.8 % (0.0-1.1); ABSOLUTE NRBC COUNT 0.02 10^3/uL (0-0.01); ADD DIFF? NO; ADD MORPH? NO; ADD SCAN? NO; ATYPICAL LYMPHOCYTE FLAG 0 (0-99); FRAGMENT RBC FLAG 0 (0-99); HEMATOCRIT 31.4 % (38.0-47.0); HEMOGLOBIN 10.1 g/dL (12.6-16.3); LEFT SHIFT FLG 0 (0-99); LIPEMIA HEMOLYSIS FLAG 80 (0-99); MEAN CELL HEMOGLOBIN 29.2 pg (27.9-34.1); MEAN CELL HEMOGLOBIN CONCENTR. 32.2 g/dL (32.4-36.7); MEAN CELL VOLUME 90.8 fL (81.5-99.8); MEAN PLATELET VOLUME 11.1 fL (8.7-11.7); NRBC-AUTO% 0.1 % (0.0-0.2); PLATELET CLUMPS FLAG 0 (0-99); PLATELET COUNT 117 10^3/uL (150-400); RED BLOOD CELL COUNT 3.46 10^6/uL (4.18-5.33); RED CELL DISTRIBUTION WIDTH 15.2 % (11.5-15.2)
[2017-04-05 04:22] LABS: ALANINE AMINOTRANSFERASE 571 IU/L (9-52); ALBUMIN 2.8 g/dL (3.5-5.0); ALKALINE PHOSPHATASE 110 IU/L (38-126); ANION GAP 14 mEq/L (8-16); BILIRUBIN,TOTAL 0.8 mg/dL (0.1-1.4); CARBON DIOXIDE 13 mEq/l (22-31); CHLORIDE 122 mEq/L (97-110); CREATININE 2.3 mg/dL (0.6-1.0); GLOMERULAR FILTRATION RATE 24; GLUCOSE 63 mg/dL (70-100); POTASSIUM 4.4 mEq/L (3.5-5.2); SODIUM 149 mEq/L (134-144); TOTAL PROTEIN 4.9 g/dL (6.3-8.2)
[2017-04-05 04:48] LABS: ASPARTATE AMINOTRANSFERASE 1959 IU/L (14-46)
[2017-04-05 05:05] LABS: CK-MB INTERPRETATION NEGATIVE (NEGATIVE)
[2017-04-05] MEDS: HEPARIN 5,000 UNIT/0.5 ML SYR SC SCH ×3 (05:08→20:56)
[2017-04-05] MEDS: FAMOTIDINE 20 MG/NACL 50 ML IV SCH (09:10)
[2017-04-05] MEDS: MEROPENEM 500 MG in NS 100 ML IV SCH ×2 (09:11→20:56)
--- NOTE | 2017-04-05 09:35 | HOSPPROG ---
Hospitalist Progress Note Assessment/Plan: #Possible drug overdose: will need TLC evaluation once medically clear #Suspected serotonin syndrome: recently started Prozac, missing MS contin pills #SIRS/Sepsis: may have all been driven by sympathetic overdrive with overdose. Negative UA/CXR/CSF/blood cultures #Tachycardia: resolved #Rhabdomyolysis: CK still high. Appreciate renal consult. Change IVFs to sodium bicarb #LINDA: due to rhabdo. Cr up to 2.3. Was taking some NSAIDs. Making good urine, no acute indication for HD. #Leukocytosis: still high. No infectious source identified; cultures negative #Acute hepatitis: likely due to serotonin syndrome with recent addition of Prozac #Metabolic acidosis: #Acute encephalopathy: restrained last night after pulling IV #Diet: regular #DVT ppx: SCDs Disp: warrants ICU admission with rhabo, LINDA, cont IVFs Subjective: want to go home Objective: Vital Signs Temp Pulse Resp BP Pulse Ox 37.2 C 86 16 117/68 96 04/05/17 08:00 04/05/17 08:00 04/05/17 08:00 04/05/17 08:00 04/05/17 08:00 Microbiology 04/03/17 20:10 Gram Stain - Final Cerebral Spinal Fluid Laboratory Results 04/05/17 03:50 04/05/17 03:50 04/04/17 04/05/17 04/06/17 05:59 05:59 05:59 Intake Total 5350 4950 Output Total 1550 2400 Balance 3800 2550 PT 15.9 SEC (12.0-15.0) H 04/03/17 16:15 INR 1.27 (0.83-1.16) H 04/03/17 16:15 - Physical Exam Constitutional: uncomfortable (restless) Eyes: PERRL Ears, Nose, Mouth, Throat: moist mucous membranes, hearing normal Cardiovascular: regular rate and rhythym, no murmur, rub, or gallop Respiratory: no respiratory distress, no rales or rhonchi Gastrointestinal: normoactive bowel sounds, other (mild RUQ TTP) Genitourinary: zavala in urethra (yellow urine) Musculoskeletal: full muscle strength Neurologic: AAOx3, CN II-XII Intact Psychiatric: encephalopathic, anxious ICD10 Worksheet Patient Problems: Problems Problem Status Onset Altered mental status, unspecified Acute
[2017-04-05] MEDS: SODIUM BICARBONATE 150 MEQ in D5W 1,000 ML IV SCH (11:16)
[2017-04-05] MEDS ORDERED: ALTEPLASE 2 MG VIAL IVP PRN (12:06)
--- NOTE | 2017-04-05 12:19 | GCON ---
[f rep st] CONSULTATION DATE OF CONSULTATION: 04/05/2017 REASON FOR CONSULTATION: Acute renal failure. ASSESSMENT: Acute renal failure, likely acute tubular necrosis due to rhabdomyolysis. RECOMMENDATION: 1. Check urine studies. 2. Quantify urine protein. 3. Continue IV fluid management with bicarb-containing IV fluids. 4. See if she can be managed without Robin catheter as the patient describes discomfort. HISTORY: The patient is a 36-year-old female, admitted on the with mental status changes. Per the ER report, her parents noted that she had been tearing up magazines in her room. She appeared to be talking to imaginary people and telling them that her sister was dying. In the emergency room , she was speaking somewhat nonsensical to Dr. Romero. During the evaluation there she complained of some right upper quadrant pain. She evidently lives with her parents in a downstairs apartment up in [place]. She rarely comes ou t of her room per the ER report. She was begun on Prozac about a month ago. Reportedly it was help ing, but in what way it is not clear by the reports I have. The patient overall is a poor historian for me today. She has autoimmune hepatitis being diagnosed in 2000 by biopsy at that time. Other past medical his tory per the medical records are for hypertension, idiopathic pancreatitis, chronic abdominal pain, anxiety and depression, irritable bowel syndrome with chronic pain and chronic narcotic use. For me she complains of abdominal pain that is around the right upper quadrant epigastric area that goes through to the back. She also complains of sore throat. She has bruising that is uncomfortabl e for her on her knees and her shoulder. She is not clear how those occurred. She says her sore th roat is severe and makes it difficult to swallow. She states that she has had a lot of vomiting. S he has had crampy abdominal pain and she has had loose stool in the past although the duration and i ntensity of that is unclear. Per the ICU nurse, she had urinary retention of 700 cc initially, and therefore, a Robin catheter wa s placed. She currently complains of the Robin irritating her bladder and would like it removed. She does describe some use of Motrin, taking up to 2 tablets 3 times a day. She is not able to tell me how many days a week she has used that dosing of that medication. On admission, she was found t o be in acute renal failure with a creatinine of 1.7. She has had previous creatinine that is docum ented in the chart of 0.7 in the remote past. She is mildly hypercalcemic with a calcium of 10.6. She had mild hypernatremia with a sodium of 152. She had elevations of her CPKs that have been grea ter than 30,000 and continued to be elevated with levels above the upper limit of the laboratory ran ge. She has been given IV fluids. In spite of this, her creatinine has gone up slightly to 2.3. S he has had good urine output. She has been normotensive. She has received no IV contrast. She has received no nonsteroidal agents while here in the hospital. She has been cultured and placed empir ically on antibiotics. There was suspicion that she has underlying serotonin syndrome related to he r recent Prozac use. PAST MEDICAL HISTORY: As described above. SURGICAL HISTORY: Liver biopsy and cholecystectomy. OUTPATIENT MEDICATIONS: Have included pantoprazole 40 mg daily, Prozac 20 mg daily, Percocet 5/325 twice daily, morphine sustained release 30 mg 3 times daily, fentanyl patch 50 mcg every 3 days, Carrol azepam 1-2 mg every 4 hours if needed, ondansetron ODT 8 mg every 8 hours as needed. ALLERGIES: Include metoclopramide, prochlorperazine and promethazine. FAMILY AND SOCIAL HISTORY: Noncontributory except for that described in the present illness. She d oes have CHF and hypertension in maternal grandmother, diabetes in both grandmothers and a paternal grandfather who had Parkinson disease. 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 She was engaged to be . Her fiancee in [address] Nath's report. REVIEW OF SYSTEMS: Limited due to the patient's current mental status. PHYSICAL EXAMINATION: VITAL SIGNS: Temp 37.2, pulse 86, respirations 16, saturating 96% on room ai r with a blood pressure of 117/68. She is 64.2 kg on admission, stands 160 cm with a BMI of 25.1. APPEARANCE: No apparent distress. Moving all extremities. Speech is clear. She is a poor historia n as described. SKIN: Remarkable for bruising, most pronounced on her left shoulder and bilaterall y on her knees. She has bruising in her right arm. HEENT: Atraumatic, normocephalic. NECK: Unre markable. HEART: Regular with no extra heart sounds. LUNGS: Coarse but clear. No wheezes, no ra les. ABDOMEN: Somewhat tender in the epigastric area but otherwise benign. She is soft. She has a pierced belly button. No obvious organomegaly or masses. EXTREMITIES: Perhaps have trace edema. LABS: Show urinalysis that has both blood and protein with the microscopic but just shows 1-3 red b lood cells and 1-3 white blood cells. Chemistry showed a creatinine of 2.3. Bicarb level of 13 wit h an anion gap of 14. Electrolytes have improved with IV fluid administration. She has increased L FTs with an AST of 1959 and an ALT of 571. CPK that is greater than 30,000. Albumin 2.8. ASSESSMENT: Acute renal failure. I suspect this is due to acute tubular necrosis from her rhabdomy olysis. Her urinalysis is not suggestive of an acute nephritic process. We will quantify her urine protein. I suspect the dipstick positive hematuria is solely related to the rhabdomyolysis. I do not think she needs other further serologic testing. I would change her fluid over the normal bicarb solution at 150 cc/hour. I think she should be able to tolerate this rate of administration fairly easily. She complains of discomfort from the Robin. I discussed this with the ICU nurse. We will do a tria l off the Robin catheter and see if we can manage both her urinary output monitoring as well as ensu re that she does not redevelop any signs or symptoms of urinary retention. He will be doing bladder scans to monitor for this issue. Obviously we should avoid nonsteroidals and IV contrast acutely. There are no acute indications for dialysis. Given that she is nonoliguric, I think the likelihood of her requiring dialysis is low. It would be nice to get a better idea of how high her CPKs really are. Sometimes lab will dilute t he specimen so they can get a ballpark figure for the total CPK to really understand whether the lev els are staying elevated or whether there has been an interval decline. At the present time, we jus t know that they are greater than 30,000 and do not know whether there is really any change from her admission levels. She should continue to get those levels monitored daily. I do not think she nee ds more frequent monitoring of her electrolytes at this time. /[id number]/MODL
--- NOTE | 2017-04-05 13:13 | PDINTPN ---
[employer] Engineer Progress Note Assessment/Plan: Assessment: Rhabdomyolysis: Secondary to prolonged down time. Muscle tenderness is present primarily over the right buttocks and right upper leg, probably where she was lying. No ecchymoses present. CPK remains high at greater than 30, 000. Clinically stable and looks better than her numbers. Acute renal failure. Creatinine up to 2.3 today. Secondary to 1. she has received significant amounts of intravenous saline. Switching to a bicarbonate drip secondary to potential protective affects from myoglobin injury. Renal consultation appreciated. AMS: Improved. No longer agitated. Still hallucinating. Not confused. Elevated transaminases: Possibly secondary to prolonged down time an unobserved hypotension verses a toxic effect on the liver. She apparently does have a history of possible autoimmune hepatitis however recent workup reportedly relatively unremarkable For this. Probable drug overdose with oral morphine sulfate. However, she denies remembering any ingestion. Pill counts appear to indicate that she did overdose ? Prozac may or may not have been involved? Pill bottles not yet available. Id: On meropenem. No definite signs or symptoms of infection. Will continue for now. DVT prophylaxis: On subcu heparin GI prophylaxis on famotidine Plan: Continued care in the intensive care unit will be provided. Intravenous fluids will be switched to a bicarbonate drip. Laboratory will be followed. Urine output monitored. CPKs will be followed. Continue antibiotics for now. Await cultures. Further clarification regarding pill counts will be obtained when possible. Subjective: Awake, alert, responsive. Says she is still hallucinating, seeing people and animals That are not present in the room. Complains of some pain with movement : Right leg and buttocks area. Denies shortness of breath. Less nausea. Specifically denies suicide ideation or intentional large amount of pill ingestion or any suicide attempt. Objective: Vital Signs Temp Pulse Resp BP Pulse Ox 37.2 C 74 16 121/80 H 96 04/05/17 08:00 04/05/17 10:00 04/05/17 10:00 04/05/17 10:00 04/05/17 10:00 Microbiology 04/03/17 20:10 Gram Stain - Final Cerebral Spinal Fluid Laboratory Results 04/05/17 03:50 04/05/17 03:50 04/04/17 04/05/17 04/06/17 05:59 05:59 05:59 Intake Total 5350 4950 50 Output Total 1550 2400 350 Balance 3800 2550 -300 PT 15.9 SEC (12.0-15.0) H 04/03/17 16:15 INR 1.27 (0.83-1.16) H 04/03/17 16:15 Laboratory Tests 04/05/17 03:50 Calcium 8.0 L Total Bilirubin 0.8 AST 1959 H ALT 571 H Creatine Kinase > 22297 H Albumin 2.8 L Physical Exam - Physical Exam General Appearance: alert, no apparent distress EENT: PERRL/EOMI, other ( On room air) Neck: normal inspection ( no JVD) Respiratory: lungs clear, normal breath sounds Cardiac/Chest: regular rate, rhythm Abdomen: normal bowel sounds, soft, hepatomegaly, splenomegaly, No non-tender ( Minimal tenderness in the epigastric area. I cannot elicit right upper quadrant tenderness.) Pelvic Exam: other ( Robin catheter in place) Skin: normal color, warm/dry, other ( Scratch on left wrist without cellulitis) Extremities: pedal edema ( trace +) Neuro/Psych: no motor/sensory deficits ( moves all extremities equally), cognition abnormalities ( oriented x3. Reports hallucinations) ICD10 Worksheet Patient Problems: Problems Problem Status Onset Altered mental status, unspecified Acute
[2017-04-05] MEDS: HYDROmorphONE/DILAUDID 1 MG/ML SYR IVP PRN ×2 (15:02→23:50)
[2017-04-05 15:23] LABS: PCO2 VENOUS 29 mmHg (40-44); PH VENOUS BLOOD 7.39 (7.31-7.42); PO2 VENOUS 37 mmHg (35-40); TCO2 VENOUS 18 mEq/L (23-27); VEN MEASURED OXYGEN SATURATION 64 % (65-75)
--- NOTE | 2017-04-05 18:33 | PCMIDPN ---
Assessment/Plan: Assessment/Plan: * Leukocytosis, low-grade fever, and rhabdomyolysis after being down and possible SSRI inhibitor overdose: No clinical findings to suggest infectious contribution to above. Suspect this is more likely noninfectious in etiology despite increase in procalcitonin. Will continue empiric meropenem today with plans to discontinue tomorrow if blood cultures remain negative. 04/05/17 18:30 04/05/17 18:32 Subjective: Patient complains of sore throat and sore muscles. Objective: Vital Signs Temp Pulse Resp BP Pulse Ox 37.0 C 77 14 123/79 H 96 04/05/17 12:00 04/05/17 16:00 04/05/17 16:00 04/05/17 16:00 04/05/17 16:00 Microbiology 04/03/17 20:10 Gram Stain - Final Cerebral Spinal Fluid Laboratory Results 04/05/17 03:50 04/05/17 03:50 04/04/17 04/05/17 04/06/17 05:59 05:59 05:59 Intake Total 5350 4950 3124 Output Total 1550 2400 350 Balance 3800 2550 2774 meropenem # 2 Blood cultures x2 no growth - Physical Exam General Appearance: alert, no apparent distress EENT: pharynx normal, other ( mild bilateral tonsillar hypertrophy), No tonsillar exudate Respiratory: lungs clear, No respiratory distress Cardiac/Chest: regular rate, rhythm, No systolic murmur Extremities: other ( mild, diffuse muscular tenderness) Abdomen: non-tender, No distended Skin: other ( laceration over left wrist without signs of infection or drainage) ICD10 Worksheet Patient Problems: Problems Problem Status Onset Altered mental status, unspecified Acute
[2017-04-05] MEDS ORDERED: LORazepam 1 MG TAB PO PRN (19:46)
[2017-04-05] MEDS: LORazepam 2 MG/ML INJ IV PRN (20:52)
[2017-04-06] MEDS: SODIUM BICARBONATE 150 MEQ in D5W 1,000 ML IV SCH ×2 (00:21→08:37)
[2017-04-06] MEDS: LORazepam 2 MG/ML INJ IV PRN (01:28)
[2017-04-06 05:21] LABS: ALBUMIN 2.5 g/dL (3.5-5.0); ANION GAP 7 mEq/L (8-16); CALCIUM 7.9 mg/dL (8.5-10.4); CARBON DIOXIDE 26 mEq/l (22-31); CHLORIDE 111 mEq/L (97-110); CREATININE 1.7 mg/dL (0.6-1.0); GLOMERULAR FILTRATION RATE 34; GLUCOSE 123 mg/dL (70-100); MAGNESIUM 1.9 mg/dL (1.6-2.3); POTASSIUM 3.4 mEq/L (3.5-5.2); SODIUM 144 mEq/L (134-144)
[2017-04-06] MEDS: HEPARIN 5,000 UNIT/0.5 ML SYR SC SCH ×3 (05:41→22:31)
[2017-04-06] MEDS: HYDROmorphONE/DILAUDID 1 MG/ML SYR IVP PRN (05:46)
[2017-04-06 05:53] LABS: CK-MB INTERPRETATION NEGATIVE (NEGATIVE)
[2017-04-06] MEDS: FAMOTIDINE 20 MG/NACL 50 ML IV SCH (08:39)
[2017-04-06] MEDS: MEROPENEM 500 MG in NS 100 ML IV SCH (08:43)
--- NOTE | 2017-04-06 09:00 | HOSPPROG ---
Hospitalist Progress Note Assessment/Plan: #Rhabdo: CK still > 30K. Stop bicarb. Cont IVFs Appreciate renal consult #LINDA: Cr improving, making good urine. Cont IVFs #Agitation: Per mom and RN, Ativan worsens this. Will stop #Diarrhea: appears to be w/d from opioids. Add back, low-dose oxycodone, #Suspected serotonin syndrome: recently started Prozac, missing MS contin pills #SIRS/Sepsis: may have all been driven by sympathetic overdrive with overdose. Negative UA/CXR/CSF/blood cultures. Stop abx today #Tachycardia: resolved #Leukocytosis: nearly normal. No infectious source identified; cultures negative #Acute hepatitis: likely due to serotonin syndrome with recent addition of Prozac. Trending down. Negative US with doppler #Metabolic acidosis: improved with bicarb #Acute toxic encephalopathy: still having hallucinations. She stills denies OD, but per pill count, may have taken >40 MS contin, 5 prozac. Will need TLC evaluation once medically clear #Diet: regular #DVT ppx: SCDs Disp: warrants ICU admission with rhabo, LINDA, cont IVFs Critical care time spent: 40 min reviewing lab data, home meds and d/w plan mother. Subjective: per pharm review, could have taken up to 50 MS Contin and 5 Prozac based on pill count. Pt seeing people in her room. Asking if her sister is Objective: Vital Signs Temp Pulse Resp BP Pulse Ox 36.8 C 67 18 124/79 H 92 04/06/17 08:00 04/06/17 08:00 04/06/17 08:00 04/06/17 08:00 04/06/17 08:00 Microbiology 04/03/17 20:10 Gram Stain - Final Cerebral Spinal Fluid Laboratory Results 04/05/17 03:50 04/06/17 04:39 04/05/17 04/06/17 04/07/17 05:59 05:59 05:59 Intake Total 4950 3124 Output Total 2400 500 Balance 2550 2624 PT 15.9 SEC (12.0-15.0) H 04/03/17 16:15 INR 1.27 (0.83-1.16) H 04/03/17 16:15 - Physical Exam Constitutional: other (diaphoretic, restless) Eyes: PERRL Ears, Nose, Mouth, Throat: moist mucous membranes Cardiovascular: regular rate and rhythym Respiratory: no respiratory distress Gastrointestinal: normoactive bowel sounds, soft, non-tender abdomen Genitourinary: no bladder fullness, other (zavala removed) Skin: warm Musculoskeletal: other (roller belt, hands restrained) Neurologic: CN II-XII Intact Psychiatric: encephalopathic ICD10 Worksheet Patient Problems: Problems Problem Status Onset Altered mental status, unspecified Acute
--- NOTE | 2017-04-06 11:14 | SOAPPROG ---
SOAP Progress Note Assessment/Plan: Assessment: 1)Non-oliguric LINDA- suspected ATN in setting of rhabdo -Cr improving 1.7, will d/c bicarb gtt given bicarb now 26- continue IV NS for now as not taking in much po, CK still high 2)Rhabdo- ?med related -no evidence compartment syndrome -continue IVF as still CK >30,000 - ICU to speak with lab to see if sample can be diluted to get guage of true level 3)Met acidosis -resolved, switching IVF as above 4)Hypokalemia -repleting now, bicarb gtt likely contributing I discussed with ICU team Tiera Easley MD [facility] [phone] pager 04/06/17 12:09 04/06/17 12:15 Subjective: "I feel sick all over." No sob, cp. Not taking much po- just ice chips and popsicles. No fevers. No dysuria. Objective: Vital Signs Temp Pulse Resp BP Pulse Ox 36.8 C 67 18 124/79 H 92 04/06/17 08:00 04/06/17 08:00 04/06/17 08:00 04/06/17 08:00 04/06/17 08:00 Microbiology 04/03/17 20:10 Gram Stain - Final Cerebral Spinal Fluid Laboratory Results 04/05/17 03:50 04/06/17 04:39 04/05/17 04/06/17 04/07/17 05:59 05:59 05:59 Intake Total 4950 3124 Output Total 2400 500 Balance 2550 2624 PT 15.9 SEC (12.0-15.0) H 04/03/17 16:15 INR 1.27 (0.83-1.16) H 04/03/17 16:15 Physical Exam - Physical Exam General Appearance: no apparent distress EENT: other (mmm) Neck: supple Respiratory: lungs clear Cardiac/Chest: regular rate, rhythm Abdomen: normal bowel sounds, non-tender, soft Skin: warm/dry, other (bruising over arm, large abrasion L wrist) Extremities: other (no edema) Neuro/Psych: alert, oriented x 3 ICD10 Worksheet Patient Problems: Problems Problem Status Onset Altered mental status, unspecified Acute
[2017-04-06] MEDS ORDERED: POTASSIUM CL 20 MEQ/15 ML UDCUP PO ONE (12:17)
[2017-04-06] MEDS: oxyCODONE IR 5 MG TAB PO PRN (12:19)
[2017-04-06 12:40] LABS: HEMATOCRIT 29.8 % (38.0-47.0); HEMOGLOBIN 9.9 g/dL (12.6-16.3); MEAN CELL HEMOGLOBIN 28.9 pg (27.9-34.1); MEAN CELL HEMOGLOBIN CONCENTR. 33.2 g/dL (32.4-36.7); MEAN CELL VOLUME 86.9 fL (81.5-99.8); RED BLOOD CELL COUNT 3.43 10^6/uL (4.18-5.33); RED CELL DISTRIBUTION WIDTH 14.6 % (11.5-15.2)
[2017-04-06 13:02] LABS: ALBUMIN 2.3 g/dL (3.5-5.0); BILIRUBIN,TOTAL 0.8 mg/dL (0.1-1.4); BILIRUBIN-CONJUGATED 0.2 mg/dL (0.0-0.5); BILIRUBIN-UNCONJUGATED 0.6 mg/dL (0.0-1.1); TOTAL PROTEIN 4.5 g/dL (6.3-8.2)
--- NOTE | 2017-04-06 15:15 | PDINTPN ---
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 Muscle tenderness is present primarily over the right buttocks and right upper leg, probably where she was lying. No ecchymoses present. CPK [address]4924 by dilution today. Clinically stable and looks better than her numbers. Acute renal failure. Creatinine improved: 1.7 today. Secondary to 1. She has received significant amounts of intravenous saline And bicarbonates. The latter stopping today. Renal consultation appreciated. AMS: Improved. No longer agitated. Still hallucinating, mildly confused. we have no good explanation for her agitation an abnormal mental status on presentation and even now. Not consistent with a morphine overdose alone. Prozac does not seem to be involved at this point. Other drugs or recreational substances remain possible? Elevated transaminases: Possibly secondary to prolonged down time an unobserved hypotension verses a toxic effect on the liver. She apparently does have a history of possible autoimmune hepatitis however recent workup reportedly relatively unremarkable for this. Probable drug overdose with oral morphine sulfate. However, she denies remembering any ingestion. Pill counts indicate that multiple of her morphine pills were missing. Only 5 10 mg Prozac pills missing so doubt overdose with this. A toxic ingestion of a non measurable drug or recreational substance is possible? Id: Off meropenem. No signs or symptoms of infection. Will continue for now. DVT prophylaxis: On subcu heparin GI prophylaxis on famotidine Plan: Continue care in the intensive care unit. Bicarbonate drip to be stopped, continue intravenous fluids. Laboratory will be followed, urine output monitored. CPKs will be followed. Consider psych / TLC eval prior to discharge. 45m min of CC time spent directly with the patient. Discussed with family, nursing, Hospitalist and the ICU multidisciplinary team. Subjective: mental status remains abnormal, but awake and alert, responsive, still with some hallucinations. No significant pain, no shortness of breath, no distress. Objective: Vital Signs Temp Pulse Resp BP Pulse Ox 36.8 C 80 22 H 124/79 H 95 04/06/17 12:00 04/06/17 12:00 04/06/17 12:00 04/06/17 08:00 04/06/17 12:00 Microbiology 04/03/17 20:10 Gram Stain - Final Cerebral Spinal Fluid CSF Culture - Final Laboratory Results 04/06/17 12:30 04/06/17 12:30 04/05/17 04/06/17 04/07/17 05:59 05:59 05:59 Intake Total 4950 3124 Output Total 2400 500 Balance 2550 2624 PT 15.9 SEC (12.0-15.0) H 04/03/17 16:15 INR 1.27 (0.83-1.16) H 04/03/17 16:15 Laboratory Tests 04/06/17 04/06/17 04:39 12:30 Calcium 7.9 L Phosphorus 3.0 D Magnesium 1.9 Total Bilirubin 0.8 AST 1352 H ALT 594 H Creatine Kinase > 71984 H Albumin 2.3 L Total CPK actual value = 55,547. Physical Exam - Physical Exam General Appearance: alert, no apparent distress EENT: PERRL/EOMI, other ( on room air) Neck: normal inspection Respiratory: lungs clear Cardiac/Chest: regular rate, rhythm Abdomen: normal bowel sounds, non-tender, soft Skin: normal color, warm/dry Extremities: other ( some tenderness related to the right buttocks, upper right leg), No pedal edema Neuro/Psych: no motor/sensory deficits, cognition abnormalities ( seem to be improving) ICD10 Worksheet Patient Problems: Problems Problem Status Onset Abdominal pain Acute Altered mental status, unspecified Acute
--- NOTE | 2017-04-06 19:25 | PCMIDPN ---
Assessment/Plan: Assessment/Plan: * Leukocytosis, low-grade fever, and rhabdomyolysis after being down and possible SSRI inhibitor overdose: Clinically improved with no documented infection to date. White blood cell count significantly improved. Blood cultures remain negative. Meropenem discontinued this a.m. and will continue to observe off antibiotics. 04/06/17 19:22 Subjective: Patient feels significantly improved. Complains of epigastric discomfort. Objective: Vital Signs Temp Pulse Resp BP Pulse Ox 36.9 C 78 20 123/83 H 94 04/06/17 16:00 04/06/17 16:00 04/06/17 16:00 04/06/17 16:00 04/06/17 16:00 Microbiology 04/03/17 20:10 Gram Stain - Final Cerebral Spinal Fluid CSF Culture - Final Laboratory Results 04/06/17 12:30 04/06/17 12:30 04/05/17 04/06/17 04/07/17 05:59 05:59 05:59 Intake Total 4950 3124 Output Total 2400 500 Balance 2550 2624 No antibiotics (Status post meropenem x3 days) Blood cultures x2 no growth - Physical Exam General Appearance: alert, no apparent distress EENT: No scleral icterus, No thrush Respiratory: lungs clear, No respiratory distress Cardiac/Chest: regular rate, rhythm Abdomen: non-tender, No distended Skin: No embolic lesions ICD10 Worksheet Patient Problems: Problems Problem Status Onset Altered mental status, unspecified Acute
[2017-04-07] MEDS: NS 1,000 ML IV SCH ×4 (00:51→23:12)
[2017-04-07 04:21] LABS: HEMATOCRIT 31.2 % (38.0-47.0); HEMOGLOBIN 10.1 g/dL (12.6-16.3); MEAN CELL HEMOGLOBIN 28.6 pg (27.9-34.1); MEAN CELL HEMOGLOBIN CONCENTR. 32.4 g/dL (32.4-36.7); MEAN CELL VOLUME 88.4 fL (81.5-99.8); RED BLOOD CELL COUNT 3.53 10^6/uL (4.18-5.33); RED CELL DISTRIBUTION WIDTH 14.6 % (11.5-15.2)
[2017-04-07 04:42] LABS: ALANINE AMINOTRANSFERASE 503 IU/L (9-52); ALBUMIN 2.3 g/dL (3.5-5.0); ALKALINE PHOSPHATASE 95 IU/L (38-126); ANION GAP 5 mEq/L (8-16); BILIRUBIN,TOTAL 0.7 mg/dL (0.1-1.4); CALCIUM 7.8 mg/dL (8.5-10.4); CARBON DIOXIDE 27 mEq/l (22-31); CHLORIDE 112 mEq/L (97-110); CREATININE 1.4 mg/dL (0.6-1.0); GLOMERULAR FILTRATION RATE 43; GLUCOSE 85 mg/dL (70-100); POTASSIUM 3.2 mEq/L (3.5-5.2); SODIUM 144 mEq/L (134-144); TOTAL PROTEIN 4.2 g/dL (6.3-8.2)
[2017-04-07 04:53] LABS: ASPARTATE AMINOTRANSFERASE 856 IU/L (14-46)
[2017-04-07] MEDS: HEPARIN 5,000 UNIT/0.5 ML SYR SC SCH (05:04)
[2017-04-07 05:31] LABS: CK-MB INTERPRETATION NEGATIVE (NEGATIVE); CREATINE KINASE-MB FRACTION 5.71 ng/mL (0-4.55)
--- NOTE | 2017-04-07 07:37 | SOAPPROG ---
SOAP Progress Note Assessment/Plan: Assessment: 1)Non-oliguric LINDA- suspected ATN in setting of rhabdo -Cr improving 1.4, CK decreasing, good UOP- continue IV NS for now as not taking in much po, CK still high 2)Rhabdo- ?med related (SSRI) -no evidence compartment syndrome -CK improved to 19K this am, continue IVF 3)Met acidosis -resolved, switched IVF as above 4)Hypokalemia -repleting now, continue to follow clari while still on IVNS 5)Leukocytosis- improving -blood Cx ngtd, ID following- off antibiotics now I discussed with ICU team We will sign off now but please call with any questions Tiera Easley MD [facility] [phone] pager 04/07/17 08:12 Subjective: CK improved 19K, Cr improved 1.4. Sleeping now- per RN no issues overnight. Objective: Vital Signs Temp Pulse Resp BP Pulse Ox 37.3 C 60 26 H 110/72 96 04/06/17 20:00 04/07/17 04:00 04/07/17 04:00 04/07/17 04:00 04/07/17 04:00 Microbiology 04/03/17 20:10 Gram Stain - Final Cerebral Spinal Fluid CSF Culture - Final Laboratory Results 04/07/17 04:15 04/07/17 04:15 04/06/17 04/07/17 04/08/17 05:59 05:59 05:59 Intake Total 3124 1325 Output Total 500 Balance 2624 1325 PT 15.9 SEC (12.0-15.0) H 04/03/17 16:15 INR 1.27 (0.83-1.16) H 04/03/17 16:15 Physical Exam - Physical Exam General Appearance: no apparent distress Respiratory: lungs clear (ant bilat) Cardiac/Chest: regular rate, rhythm Abdomen: normal bowel sounds, non-tender, soft Skin: warm/dry Extremities: other (trace LE edema bilat, no tenderness palpation) Neuro/Psych: other (sleeping now) ICD10 Worksheet Patient Problems: Problems Problem Status Onset Altered mental status, unspecified Acute
[2017-04-07] MEDS ORDERED: POTASSIUM CL 20 MEQ/15 ML UDCUP PO ONE (08:12)
--- NOTE | 2017-04-07 08:26 | HOSPPROG ---
Hospitalist Progress Note Assessment/Plan: #Rhabdo: improved to 19K. Cont IVFs #LINDA: Cr 1.4 today, good UOP #Hypokalemia: repleting #Thrombocytopenia: suspect due to acute illness. Hold SQH. Check coags. #Diarrhea: appears to be w/d from opioids. Add back, low-dose oxycodone, #Suspected serotonin syndrome: recently started Prozac, missing MS contin pills #Chronic pain: unclear why. No clear dx for "autoimmune hepatitis" and associated abd pain. Per GI review of OSH records, negative immuno labs. Cont only Fentanyl patch and oxy now #SIRS/Sepsis: may have all been driven by sympathetic overdrive with overdose. Negative UA/CXR/CSF/blood cultures. Stop abx today #Tachycardia: resolved. Stop telemetry #Leukocytosis:resolved. Cultures negative #Acute hepatitis: improved. Suspect due to meds. Negative US with doppler #Metabolic acidosis: resolved with bicarb #Acute toxic encephalopathy: still having hallucinations. She stills denies OD. Query underlying psychosis? Will need TLC evaluation once medically clear #Diet: regular #DVT ppx: SCDs Disp: warrants ICU admission with rhabo, LINDA, cont IVFs Critical care time spent: 45 min spent: reviewing labs, explaining tx plan to pt and d/w Abstract Clerk Subjective: "see man standing in corner" Objective: Vital Signs Temp Pulse Resp BP Pulse Ox 37.3 C 60 26 H 110/72 96 04/06/17 20:00 04/07/17 04:00 04/07/17 04:00 04/07/17 04:00 04/07/17 04:00 Microbiology 04/03/17 20:10 Gram Stain - Final Cerebral Spinal Fluid CSF Culture - Final Laboratory Results 04/07/17 04:15 04/07/17 04:15 04/06/17 04/07/17 04/08/17 05:59 05:59 05:59 Intake Total 3124 1325 Output Total 500 Balance 2624 1325 PT 15.9 SEC (12.0-15.0) H 04/03/17 16:15 INR 1.27 (0.83-1.16) H 04/03/17 16:15 - Physical Exam Constitutional: no apparent distress, other (restless) Eyes: PERRL Ears, Nose, Mouth, Throat: moist mucous membranes Cardiovascular: regular rate and rhythym Respiratory: no respiratory distress Gastrointestinal: normoactive bowel sounds, soft, non-tender abdomen Genitourinary: no bladder fullness Skin: warm, other (scratch armendariz left forearm. Scabbed, no signs of infection) Musculoskeletal: other (bruises over right shoulder, knees) Neurologic: AAOx3 Psychiatric: anxious, poor insight ICD10 Worksheet Patient Problems: Problems Problem Status Onset Altered mental status, unspecified Acute
[2017-04-07 09:41] LABS: INR 1.15 (0.83-1.16); PROTIME(PATIENT) 14.6 SEC (12.0-15.0)
[2017-04-07 09:42] LABS: APTT 34.1 SEC (23.0-38.0)
[2017-04-07] MEDS: fentaNYL 25 MCG PATCH TD SCH (10:35)
[2017-04-07] MEDS: FAMOTIDINE 20 MG TAB PO SCH (10:35)
[2017-04-07] MEDS: oxyCODONE IR 5 MG TAB PO PRN ×3 (10:41→19:28)
[2017-04-07] MEDS: ONDANSETRON DISINTEGRATING 4 MG TAB PO PRN (12:50)
[2017-04-07] MEDS ORDERED: CEPACOL LOZENGE PO PRN (13:11)
--- NOTE | 2017-04-07 14:34 | PDINTPN ---
Upholstery Restorer Progress Note Assessment/Plan: Assessment: Rhabdomyolysis: Secondary to prolonged down time. Muscle tenderness is present primarily over the right buttocks and right upper leg, probably where she was lying. No ecchymoses present. CPK decreasing now: 19,000 today. Clinically stable and looks better than her numbers. Acute renal failure. Creatinine improved: 1.4 today. Resolving. Secondary to 1. She did receive significant fluids following by intravenous bicarb. Renal consultation appreciated. AMS: Improved. No longer agitated. Mildly confused. We have no good explanation for her agitation an abnormal mental status on presentation and even now. Not consistent with a morphine overdose alone. Prozac does not seem to be involved at this point. Other drugs over doses or recreational substance over doses remain possible? Also, a psych disorder with a significant supratentorial component to her current symptoms may be playing a role. Elevated transaminases: Possibly secondary to prolonged down time an unobserved hypotension verses a toxic effect on the liver. She apparently does have a history of possible autoimmune hepatitis however recent workup reportedly relatively unremarkable for this. Probable drug overdose with oral morphine sulfate. However, she denies remembering any ingestion. A significant underlying psychiatric disorder or even a possible suicide attempt that she is not admitting to are possible. Pill counts do indicate that multiple of her morphine pills were missing. Only 5 10 mg Prozac pills missing so doubt overdose with this. A toxic ingestion of a non measurable drug or recreational substance is possible? Id: Off meropenem. No signs or symptoms of infection. DVT prophylaxis: On subcu heparin GI prophylaxis on famotidine Plan: Continue care in the intensive care unit on step-down. Continue intravenous fluids. Laboratory will be followed, urine output monitored. CPKs will be followed. Increase activity/ambulation. Consider psych / TLC eval prior to discharge. It may be helpful if the patient's mother is involved. Subjective: Oriented but seems confused about some issues. Hallucinations do not appear to be present this morning. Objective: Vital Signs Temp Pulse Resp BP Pulse Ox 36.3 C 74 14 136/88 H 94 04/07/17 12:00 04/07/17 12:00 04/07/17 12:00 04/07/17 12:00 04/07/17 12:00 Microbiology 04/03/17 20:10 Gram Stain - Final Cerebral Spinal Fluid CSF Culture - Final Laboratory Results 04/07/17 04:15 04/07/17 04:15 04/06/17 04/07/17 04/08/17 05:59 05:59 05:59 Intake Total 3124 1325 Output Total 500 Balance 2624 1325 PT 14.6 SEC (12.0-15.0) 04/07/17 09:20 INR 1.15 (0.83-1.16) 04/07/17 09:20 Laboratory Tests 04/03/17 04/03/17 04/07/17 18:55 18:55 04:15 Calcium 7.8 L Phosphorus 2.6 Magnesium 2.0 AST 856 H ALT 503 H Creatine Kinase 04224 H Albumin 2.3 L Hepatitis A IgM Ab NEGATIVE Hep Bs Antigen NEGATIVE Hep Bs Antibody Negative Hep Bs Antibody, Quant <5.0 Hepatitis C Antibody NEGATIVE HIV 1&2 Antibody NEGATIVE Physical Exam - Physical Exam General Appearance: alert, other, No no apparent distress EENT: PERRL/EOMI Neck: normal inspection Respiratory: lungs clear, decreased breath sounds (At bases) Cardiac/Chest: regular rate, rhythm Abdomen: normal bowel sounds, non-tender (Mild epigastric tenderness to palpation, but less when she is preoccupied), soft, No hepatomegaly, No splenomegaly Skin: normal color, warm/dry Extremities: No pedal edema Neuro/Psych: no motor/sensory deficits (Moves all extremities equally, good strength. No flap. However says she cannot hold a cup at times?), cognition abnormalities (Unusual affect. However she is oriented x3) ICD10 Worksheet Patient Problems: Problems Problem Status Onset Altered mental status, unspecified Acute
[2017-04-07] MEDS: ZOLPIDEM TARTRATE 5 MG TAB PO PRN (21:24)
[2017-04-08] MEDS: oxyCODONE IR 5 MG TAB PO PRN ×6 (00:43→23:06)
[2017-04-08 04:47] LABS: ALBUMIN 2.6 g/dL (3.5-5.0); ANION GAP 5 mEq/L (8-16); CALCIUM 8.1 mg/dL (8.5-10.4); CARBON DIOXIDE 25 mEq/l (22-31); CHLORIDE 112 mEq/L (97-110); CREATININE 1.3 mg/dL (0.6-1.0); GLOMERULAR FILTRATION RATE 47; GLUCOSE 80 mg/dL (70-100); MAGNESIUM 1.8 mg/dL (1.6-2.3); POTASSIUM 3.9 mEq/L (3.5-5.2); SODIUM 142 mEq/L (134-144)
[2017-04-08] MEDS: ONDANSETRON DISINTEGRATING 4 MG TAB PO PRN ×3 (05:02→18:41)
[2017-04-08 05:22] LABS: CK-MB INTERPRETATION NEGATIVE (NEGATIVE)
[2017-04-08] MEDS: NS 1,000 ML IV SCH (07:17)
[2017-04-08] MEDS: FAMOTIDINE 20 MG TAB PO SCH (09:38)
--- NOTE | 2017-04-08 13:14 | SOAPPROG ---
SOAP Progress Note Assessment/Plan: Assessment: The patient is a 36 y/o F with a known h/o psych and pain issues who presented with LINDA 2/2 to possible rhabdomyolysis related to SSRI use, now improving. 1)Non-oliguric LINDA- suspected ATN in setting of rhabdo -Cr improving 1.3, CK decreasing to <10k, good UOP -patient eating and drinking, may use NS per primary discretion 2)Rhabdo-?med related (SSRI) -monitoring CK daily -continue to replete electrolytes as needed -possible psych consult to re-evaluate medication dosing 3)Met acidosis -resolved 4)Leukocytosis- improving -blood Cx ngtd, ID following- off antibiotics now Will sign off, expect renal recovery. Consult appreciated, please contact if questions, pager [phone]. 04/08/17 13:12 Subjective: Patient still crying and feeling depressed. Good UO and denies other ROS. Mom present at bedside. Objective: Vital Signs Temp Pulse Resp BP Pulse Ox 36.4 C 93 16 116/90 H 96 04/08/17 07:32 04/08/17 07:32 04/08/17 07:32 04/08/17 07:32 04/08/17 07:32 Laboratory Results 04/07/17 04:15 04/08/17 04:20 04/07/17 04/08/17 04/09/17 05:59 05:59 05:59 Intake Total 1325 2616 Balance 1325 2616 PT 14.6 SEC (12.0-15.0) 04/07/17 09:20 INR 1.15 (0.83-1.16) 04/07/17 09:20 Physical Exam - Physical Exam General Appearance: alert, mild distress EENT: normal ENT inspection Neck: non-tender, full range of motion, supple Respiratory: lungs clear, normal breath sounds Cardiac/Chest: normal peripheral pulses, regular rate, rhythm Abdomen: normal bowel sounds, non-tender, soft Skin: normal color, warm/dry Extremities: normal range of motion, non-tender Neuro/Psych: no motor/sensory deficits, alert, oriented x 3 ICD10 Worksheet Patient Problems: Problems Problem Status Onset Altered mental status, unspecified Acute
[2017-04-08] MEDS ORDERED: POTASSIUM/SODIUM PHOSPHATE 1 PKT PO ONE (15:04)
--- NOTE | 2017-04-08 15:05 | HOSPPROG ---
Hospitalist Progress Note Assessment/Plan: #Rhabdo: much improved. Taking in good PO. Stop IVFs #LINDA: Cr down. Expect recovery #Hypokalemia: repleted #PICC-related DVT: nonocclusive around the line. Given that does not involve more prox vein, does not warrant anticoagulation. Pull PICC #Thrombocytopenia: suspect due to acute illness. Hold SQH. Coags WNL, check HIT Ab #Diarrhea: appears to be w/d from opioids. Add back, low-dose oxycodone, #Suspected serotonin syndrome: recently started Prozac, missing MS contin pills #Chronic pain: unclear why. No clear dx for "autoimmune hepatitis" and associated abd pain. Per GI review of OSH records, negative immuno labs. Cont only Fentanyl patch and oxy now #SIRS/Sepsis: may have all been driven by sympathetic overdrive with overdose. Negative UA/CXR/CSF/blood cultures. Abx stopped #Sore throat: rapid strep/EBV negative. Viscous lidocaine #Tachycardia: resolved. Stop telemetry #Leukocytosis:resolved. Cultures negative #Acute hepatitis: improved. Suspect due to meds. Negative US with doppler #Metabolic acidosis: resolved with bicarb #Acute toxic encephalopathy: stopped having hallucinations. She stills denies OD. Query underlying psychotic break? Will need TLC evaluation once medically clear #Depression: will not restart Prozac until evaluated by psych. TLC eval #Diet: regular #DVT ppx: SCDs Disp: safe for med-surg Critical care time spent: 50 min spent: reviewing labs, d/w renal. Counseling mother on psych eval and pain regimen Subjective: swelling at PICC site and arm Objective: Vital Signs Temp Pulse Resp BP Pulse Ox 36.4 C 93 16 116/90 H 96 04/08/17 07:32 04/08/17 07:32 04/08/17 07:32 04/08/17 07:32 04/08/17 07:32 Laboratory Results 04/07/17 04:15 04/08/17 04:20 04/07/17 04/08/17 04/09/17 05:59 05:59 05:59 Intake Total 1325 2616 Balance 1325 2616 PT 14.6 SEC (12.0-15.0) 04/07/17 09:20 INR 1.15 (0.83-1.16) 04/07/17 09:20 - Physical Exam Constitutional: no apparent distress Eyes: PERRL Ears, Nose, Mouth, Throat: moist mucous membranes, other (small ulcerations back of throat) Cardiovascular: regular rate and rhythym Respiratory: no respiratory distress Gastrointestinal: normoactive bowel sounds Genitourinary: no bladder fullness Skin: warm, other (scratch armendariz RUE) Musculoskeletal: other (bruising left shoulder, BL knees. RUE swollen, mild TTP. Pulses intact) Neurologic: AAOx3 Psychiatric: interacting appropriately ICD10 Worksheet Patient Problems: Problems Problem Status Onset Altered mental status, unspecified Acute
[2017-04-08] MEDS: LIDOCAINE 2% VISCOUS 15 ML UDCUP PO PRN ×2 (15:19→20:45)
[2017-04-08] MEDS: POTASSIUM/SODIUM PHOSPHATE 1 PKT PO SCH ×2 (18:36→20:44)
[2017-04-08] MEDS: ZOLPIDEM TARTRATE 5 MG TAB PO PRN (20:44)
[2017-04-09 06:29] LABS: ALANINE AMINOTRANSFERASE 375 IU/L (9-52); ALBUMIN 2.5 g/dL (3.5-5.0); ALKALINE PHOSPHATASE 97 IU/L (38-126); ANION GAP 9 mEq/L (8-16); ASPARTATE AMINOTRANSFERASE 335 IU/L (14-46); BILIRUBIN,TOTAL 0.6 mg/dL (0.1-1.4); CALCIUM 8.6 mg/dL (8.5-10.4); CARBON DIOXIDE 24 mEq/l (22-31); CHLORIDE 111 mEq/L (97-110); CREATININE 1.3 mg/dL (0.6-1.0); GLOMERULAR FILTRATION RATE 47; GLUCOSE 85 mg/dL (70-100); MAGNESIUM 1.8 mg/dL (1.6-2.3); POTASSIUM 3.5 mEq/L (3.5-5.2); SODIUM 144 mEq/L (134-144); TOTAL PROTEIN 4.5 g/dL (6.3-8.2)
[2017-04-09 07:00] LABS: CK-MB INTERPRETATION NEGATIVE (NEGATIVE)
[2017-04-09 07:10] LABS: CREATINE KINASE-MB FRACTION 6.74 ng/mL (0-3.19)
[2017-04-09] MEDS: POTASSIUM/SODIUM PHOSPHATE 1 PKT PO SCH (07:53)
[2017-04-09] MEDS: oxyCODONE IR 5 MG TAB PO PRN ×4 (09:32→21:55)
[2017-04-09] MEDS: FAMOTIDINE 20 MG TAB PO SCH (09:32)
[2017-04-09] MEDS: LIDOCAINE 2% VISCOUS 15 ML UDCUP PO PRN (09:33)
--- NOTE | 2017-04-09 13:11 | HOSPPROG ---
Hospitalist Progress Note Assessment/Plan: #Rhabdo: much improved. Taking in good PO. Stop IVFs #LINDA: Cr stable. Good UOP. Expect recovery #Hypokalemia: resolved #PICC-related DVT: nonocclusive around the line. Given that does not involve more prox vein, does not warrant anticoagulation. Pull PICC #Thrombocytopenia: suspect due to acute illness. Hold SQH. Coags WNL, check HIT Ab #Diarrhea: resolved. #Suspected serotonin syndrome: recently started Prozac, missing MS contin pills #Chronic pain: unclear why. No clear dx for "autoimmune hepatitis" and associated abd pain. Per GI review of OSH records, negative immuno labs. Will not resume MS Contin or patch. PRn oxy while here to prevent w/d #SIRS/Sepsis: may have all been driven by sympathetic overdrive with overdose. Negative UA/CXR/CSF/blood cultures. Abx stopped #Sore throat: rapid strep/EBV negative. Viscous lidocaine #Tachycardia: resolved. Stop telemetry #Leukocytosis:resolved. Cultures negative #Acute hepatitis: improved. Suspect due to meds. Negative US with doppler #Metabolic acidosis: resolved with bicarb #Acute toxic encephalopathy: stopped having hallucinations. She stills denies OD. Query underlying psychotic break? Will need TLC evaluation once medically clear #Depression: will not restart Prozac until evaluated by psych. TLC eval #Diet: regular #DVT ppx: SCDs Disp: medically clear. will need FU labs. TLC to evaluate Subjective: no hallucinations. Tired. Objective: Vital Signs Temp Pulse Resp BP Pulse Ox 36.5 C 78 16 128/87 H 96 04/09/17 09:36 04/09/17 09:36 04/09/17 09:36 04/09/17 09:36 04/09/17 09:36 Laboratory Results 04/07/17 04:15 04/09/17 05:31 04/08/17 04/09/17 04/10/17 05:59 05:59 05:59 Intake Total 2616 2950 Balance 2616 2950 PT 14.6 SEC (12.0-15.0) 04/07/17 09:20 INR 1.15 (0.83-1.16) 04/07/17 09:20 - Physical Exam Constitutional: no apparent distress, uncomfortable Eyes: PERRL Ears, Nose, Mouth, Throat: moist mucous membranes, hearing normal Cardiovascular: regular rate and rhythym, no murmur, rub, or gallop Respiratory: no respiratory distress, no rales or rhonchi Gastrointestinal: normoactive bowel sounds, soft, non-tender abdomen (TTP RUQ, no rebound, guarding) Skin: other (scratches left forearm. Bruising over left shoulder and knees) Musculoskeletal: full muscle strength Neurologic: AAOx3, CN II-XII Intact Psychiatric: interacting appropriately, flat affect ICD10 Worksheet Patient Problems: Problems Problem Status Onset Altered mental status, unspecified Acute
[2017-04-09] MEDS: CHLORHEXIDINE GLUCONATE 15 ML UDL PO SCH ×2 (13:38→20:00)
[2017-04-09] MEDS: ONDANSETRON DISINTEGRATING 4 MG TAB PO PRN ×2 (13:38→17:56)
[2017-04-09 18:13] LABS: HEPARIN INDUCED ANTIBODY Negative (Negative); HEPARIN-PF4 IgG ANTIBODY ELISA < 0.075 OD (<0.400)
[2017-04-09] MEDS: ZOLPIDEM TARTRATE 5 MG TAB PO PRN (19:59)
[2017-04-10] MEDS: oxyCODONE IR 5 MG TAB PO PRN ×2 (04:23→09:22)
[2017-04-10 06:00] LABS: ANION GAP 10 mEq/L (8-16); CALCIUM 8.6 mg/dL (8.5-10.4); CARBON DIOXIDE 25 mEq/l (22-31); CHLORIDE 106 mEq/L (97-110); CREATININE 1.3 mg/dL (0.6-1.0); GLOMERULAR FILTRATION RATE 47; GLUCOSE 97 mg/dL (70-100); POTASSIUM 3.2 mEq/L (3.5-5.2); SODIUM 141 mEq/L (134-144)
--- NOTE | 2017-04-10 09:17 | HOSPPROG ---
Hospitalist Progress Note Assessment/Plan: 36 yo f admitted w sepsis, LINDA, rhabdo and encephalopathy Rhabdo: much improved. Taking in good PO. Stop IVFs LINDA: Cr stable. Good UOP. Expect recovery Hypokalemia: mild taking po's PICC-related DVT: nonocclusive around the line. Given that does not involve more prox vein, does not warrant anticoagulation. Pull PICC R arm still edematous but werll perfused, not taught elevate R arm Thrombocytopenia: suspect due to acute illness. Coags WNL, HIT Ab neg stable at 100 restart VTE proph if staying Diarrhea: resolved. Suspected serotonin syndrome: recently started Prozac, missing MS contin pills Chronic pain: unclear why. No clear dx for "autoimmune hepatitis" and associated abd pain. Per GI review of OSH records, negative immuno labs. Will not resume MS Contin or patch. PRn oxy while here to prevent w/d SIRS/Sepsis: may have all been driven by sympathetic overdrive with overdose. Negative UA/CXR/CSF/blood cultures. Abx stopped Sore throat: rapid strep/EBV negative. Viscous lidocaine Tachycardia: resolved. Stop telemetry Leukocytosis:resolved. Cultures negative Acute hepatitis: improved. Suspect due to meds. Negative US with doppler Metabolic acidosis: resolved with bicarb Acute toxic encephalopathy: stopped having hallucinations. She stills denies OD. Query underlying psychotic break? Will need TLC evaluation once medically clear Depression: will not restart Prozac until evaluated by psych. TLC eval #Diet: regular #DVT ppx: SCDs Disp: medically clear. will need FU labs. TLC to evaluate Subjective: alert. eating. seen by TLC last magdalene; no notes Objective: Vital Signs Temp Pulse Resp BP Pulse Ox 36.7 C 76 14 127/76 H 98 04/10/17 00:00 04/10/17 00:00 04/10/17 00:00 04/10/17 00:00 04/10/17 00:00 Laboratory Results 04/07/17 04:15 04/10/17 05:32 04/09/17 04/10/17 04/11/17 05:59 05:59 05:59 Intake Total 2950 1450 Balance 2950 1450 PT 14.6 SEC (12.0-15.0) 04/07/17 09:20 INR 1.15 (0.83-1.16) 04/07/17 09:20 - Physical Exam Constitutional: no apparent distress, appears nourished Eyes: PERRL, anicteric sclera Ears, Nose, Mouth, Throat: moist mucous membranes, hearing normal Cardiovascular: regular rate and rhythym, no murmur, rub, or gallop Respiratory: no respiratory distress, no rales or rhonchi Gastrointestinal: normoactive bowel sounds, soft, non-tender abdomen Genitourinary: no bladder fullness, No zavala in urethra Skin: warm, normal color, mottled Musculoskeletal: full muscle strength, no muscle tenderness Neurologic: AAOx3, sensation intact bilaterally Psychiatric: interacting appropriately, not anxious Lymph, Heme, Immunologic: no cervical LAD ICD10 Worksheet Patient Problems: Problems Problem Status Onset Altered mental status, unspecified Acute
[2017-04-10 09:21] VITALS: BP 131/83; PULSE 80; RESP 16; TEMP 98.7; O2SAT 95
[2017-04-10] MEDS: FAMOTIDINE 20 MG TAB PO SCH (09:21)
[2017-04-10] MEDS: CHLORHEXIDINE GLUCONATE 15 ML UDL PO SCH (09:22)
[2017-04-10 10:05] LABS: HEMATOCRIT 30.8 % (38.0-47.0); HEMOGLOBIN 10.2 g/dL (12.6-16.3); MEAN CELL HEMOGLOBIN 29.1 pg (27.9-34.1); MEAN CELL HEMOGLOBIN CONCENTR. 33.1 g/dL (32.4-36.7); MEAN CELL VOLUME 87.7 fL (81.5-99.8); RED BLOOD CELL COUNT 3.51 10^6/uL (4.18-5.33); RED CELL DISTRIBUTION WIDTH 15.6 % (11.5-15.2)
--- NOTE | 2017-04-10 19:22 | GDS ---
[f rep st] DISCHARGE SUMMARY DISCHARGE DIAGNOSES: 1. Rhabdomyolysis, now resolved. 2. Possible serotonin syndrome. 3. Acute kidney injury, now resolved. 4. Mild hypokalemia. 5. Nonocclusive PIC line-related DVT, not anticoagulated. 6. Thrombocytopenia. 7. Systemic inflammatory response syndrome/sepsis without a source of infection. 8. Acute hepatitis. LFTs trending down. Please see admission history and physical by Dr. Susi Veloz. The patient presented on the of for confusion and hallucinations. She had recently started Prozac. She had negative infectious workup at that time. A head CT performed was somewhat unremarkable. She was initially treated for sepsis with IV fluids, vancomycin, and meropenem. She was also noted to have rhabdomyol ysis. The patient improved. Her antibiotics were discontinued, and she was observed off anticoagul ation. She was seen by TLC who cleared her for medical discharge and felt this was a medical as opp osed to a psychiatric event. She is discharged home on unchanged medication regimen. Her creatinin e was 1.3 on the day of discharge. Transaminases were down in the low 100s and her CK was 3000 havi ng come down from 9000 the day before. /[id number]/MODL
--- NOTE | 2017-04-15 12:10 | PQFORM ---
PHYSICIAN QUERY FORM Needs Your Response This query form is being sent to you to assure this patient record is coded properly. Please respond to the question below: TEMPLATE REPRODUCTION TECHNICIAN QUESTION: Dr. Campo, Dr. Easley documented on 04/06 and 04/[address] Lloyd on 04/08 that the patient was noted to have non-oliguric LINDA with suspected ATN in the setting of rhabdomyolysis. Did this patient have acute tubular necrosis? Yes___X___ No Unknown Other Thank you for clarifying, ESTIVEN Roper HIM Coding INSTRUCTIONS FOR RESPONSE: Answer question by clicking on the "Edit Document" button. Move cursor to area below the stars. When complete, hit "Save." Click on the "Sign" button, then click "Sign" again. Type in your PIN and hit "Enter." MTDD
--- NOTE | 2017-04-15 12:20 | PQFORM ---
PHYSICIAN QUERY FORM Needs Your Response This query form is being sent to you to assure this patient record is coded properly. Please respond to the question below: SALESPERSON PIANOS [employer]GANS QUESTION: Dr. Campo, On your discharge summary it is stated the patient had SIRS of non-infectious origin. The patient also had an LINDA. Is the acute kidney injury related to the SIRS? Yes ____X___ No Undetermined Thank you for clarifying, ESTIVEN Roper HIM Coding INSTRUCTIONS FOR RESPONSE: Answer question by clicking on the "Edit Document" button. Move cursor to area below the stars. When complete, hit "Save." Click on the "Sign" button, then click "Sign" again. Type in your PIN and hit "Enter." MTDD
== END 2017-04-10 12:55 | disposition home or self-care (01) | DRG 917 ==
LOC: F2N 21:05
PROVIDERS: ADMIT Internal Medicine; ATTEND Internal Medicine
PROC: 02HV03Z Insertion of Infusion Device into Superior Vena Cava, Open Approach (ICD-10-PCS; principal; 2017-04-05)
DX: T40.2X1A Poisoning by other opioids, accidental (unintentional), initial encounter (principal); G92 Toxic encephalopathy; M62.82 Rhabdomyolysis; R65.11 Systemic inflammatory response syndrome (SIRS) of non-infectious origin with acute organ dysfunction; G25.9 Extrapyramidal and movement disorder, unspecified; T43.225A Adverse effect of selective serotonin reuptake inhibitors, initial encounter; N17.0 Acute kidney failure with tubular necrosis; E87.2 Acidosis; G89.29 Other chronic pain; F11.23 Opioid dependence with withdrawal; T82.868A Thrombosis due to vascular prosthetic devices, implants and grafts, initial encounter; K75.9 Inflammatory liver disease, unspecified; I10 Essential (primary) hypertension; R33.9 Retention of urine, unspecified; K58.9 Irritable bowel syndrome, unspecified; F32.9 Major depressive disorder, single episode, unspecified; E87.6 Hypokalemia; R44.1 Visual hallucinations; D69.6 Thrombocytopenia, unspecified
CPT/HCPCS: 80305; 86022-90; 86709-90; 96374; C1751; G0472; G0480; J1170; J2060; J2185; J2405; J3010; J3370

== ENCOUNTER 2017-04-29 07:46 | Inpatient (IN) | payer MEDICAID ==
[2017-04-29 08:10] LABS: COLOR YELLOW; LEUKOCYTE ESTERASE,URINE NEGATIVE (NEGATIVE); NITRITE,URINE NEGATIVE (NEGATIVE)
--- NOTE | 2017-04-29 08:27 | EDPHY ---
H & P Time Seen by Provider: 04/29/17 07:54 HPI/ROS: CHIEF COMPLAINT: Right upper quadrant pain, bilateral flank pain HISTORY OF PRESENT ILLNESS: Patient is a 36-year-old female who presents emergency department with multiple complaints. Patient was admitted to the ICU and discharged 04/10/17. The patient was diagnosed with acute hepatitis , SIRS, rhabdomyolysis, and possible serotonin syndrome. She had recently started Prozac prior to the onset of her symptoms. Patient has been doing well at home. She has an appointment for follow-up tomorrow with her primary care physician Dr. Joseph. However, the past 2 days she has had increased right upper quadrant pain. This is now radiating to "both kidneys." Her pain is moderate. She has had nausea with no vomiting. No dysuria or frequency. No fevers or chills. No cough or shortness of breath. Patient's last menstrual period was 3 weeks ago. REVIEW OF SYSTEMS: My complete review of systems is negative except as mentioned in the HPI. Past Medical/Surgical History: Includes rhabdomyolysis, serotonin syndrome, acute renal injury, hypokalemia, thrombocytopenia, PICC line related DVT, autoimmune hepatitis, SIRS PSH: Cholecystectomy Social history: The patient does not smoke. Smoking Status: Never smoked Physical Exam: Vitals noted. 36.8, 139/93, 126, 22, 95 GENERAL: mildly anxious, alert. HEENT: Eyes normal to inspection, normal pharynx, no signs of dehydration. NECK: No thyromegaly, no lymphadenopathy, supple. RESPIRATORY: Clear to auscultation bilaterally, no rales, rhonchi or wheezing. CVS: Regular rate and rhythm, no rubs, murmurs, or gallops. ABDOMEN: Soft, mild right upper quadrant tenderness palpation with no rebound or guarding, nondistended, no organomegaly. BACK: Normal to inspection, bilateral CVA tenderness. SKIN: Normal color, no rash, warm, dry. No pallor. EXTREMITIES: No pedal edema, no calf tenderness, no Homans sign or cords, no joint swelling. NEURO/PSYCH: Alert and oriented x3, normal mood and affect, normal motor sensory exam. No obvious cranial nerve deficit. Constitutional: Initial Vital Signs Temperature (C) 36.8 C 04/29/17 07:49 Heart Rate 126 H 04/29/17 07:49 Respiratory Rate 22 H 04/29/17 07:49 Blood Pressure 139/93 H 04/29/17 07:49 O2 Sat (%) 95 04/29/17 07:49 O2 Delivery Mode Room Air Allergies/Adverse Reactions: metoclopramide HCl [From Reglan] Allergy (Unknown, Verified 04/29/17 07:48) prochlorperazine edisylate [From Compazine] Allergy (Unknown, Verified 04/29/17 07:48) prochlorperazine maleate [From Compazine] Allergy (Unknown, Verified 04/29/17 07 :48) promethazine HCl [From Phenergan] Allergy (Unknown, Verified 04/29/17 07:48) Home Medications: Medication Instructions Recorded oxyCODONE/APAP 5/325 [Percocet 1 tab PO BID 04/04/17 5325 (*)] Medical Decision Making - Diagnostics Imaging Results: Imaging Impressions Chest X-Ray 04/29/17 08:31 Impression: No acute thoracic abnormality. ED Course/Re-evaluation: In the emergency department I discussed possible etiologies with the patient. I answered all her questions. IV was placed. She was given normal saline 1 L IV for hydration. She is given Zofran 4 mg IV for nausea. She was given morphine 4 mg IV for pain. I reviewed the patient's previous medical record. [place] [id number]. Patient has lactic acid was elevated at 3.3. The patient's creatinine was normal. Patient had a low CO2 and elevated anion gap. 921: I reviewed the patient's laboratory studies and discussed the results with the patient. The patient presents with no obvious source of infection. From her previous admission no source of infection was identified. Based on her elevated white count, elevated lactic acid, possible infection severe sepsis was declared. The patient was given normal saline bolus. Repeat lactate was ordered. I discussed with the hospitalist service, WELDER FITTER and asked to speak with the attending. I discussed the case with Dr. Campo regarding antibiotic choice as there is no clear source in addition to recent hospitalization. Dr. Campo requested Zosyn. This was ordered. He also requested step-down unit. I discussed the plan with the patient. 948: On recheck of vital signs the patient developed a temperature to 38. Differential Diagnosis: My differential includes but is not limited to hepatitis, cholangitis, pancreatitis, urinary tract infection, pyelonephritis, renal insufficiency, renal failure, electrolyte abnormality, sugar abnormality, rhabdomyolysis, SIRS , bacteremia, sepsis Critical Care Time: Patient required 35 minutes of critical care time. This is exclusive of any unbundled procedure. This was due to the patient's tachycardia, elevated lactic acid, elevated white count, need for frequent rechecks, discussion with the hospitalist service, review her previous record - Data Points Laboratory Results: Laboratory Results 04/29/17 08:10 04/29/17 08:10 04/29/17 04/29/17 04/29/17 08:45 08:45 08:10 WBC RBC Hgb Hct MCV MCH MCHC RDW Plt Count MPV Neut % (Auto) Lymph % (Auto) Polk % (Auto) Eos % (Auto) Baso % (Auto) Nucleat RBC Rel Count Absolute Neuts (auto) Absolute Lymphs (auto) Absolute Monos (auto) Absolute Eos (auto) Absolute Basos (auto) Absolute Nucleated RBC Immature Gran % Immature Gran # PT 12.9 SEC SEC (12.0-15.0) INR 0.98 (0.83-1.16) APTT 24.6 SEC SEC (23.0-38.0) VBG Lactic Acid 3.3 mmol/L H mmol/L (0.7-2.1) Sodium Potassium Chloride Carbon Dioxide Anion Gap BUN Creatinine Estimated GFR Glucose Calcium Phosphorus Total Bilirubin Conjugated Bilirubin Unconjugated Bilirubin AST ALT Alkaline Phosphatase Creatine Kinase Total Protein Albumin Lipase Beta HCG, Qual NEGATIVE Urine Color Urine Appearance Urine pH Ur Specific Olden Urine Protein Urine Ketones Urine Blood Urine Nitrate Urine Bilirubin Urine Urobilinogen Ur Leukocyte Esterase Urine Glucose 04/29/17 04/29/17 04/29/17 08:10 08:10 08:00 WBC 13.79 10^3/uL H 10^3/uL (3.80-9.50) RBC 4.82 10^6/uL 10^6/uL (4.18-5.33) Hgb 14.2 g/dL g/dL (12.6-16.3) Hct 41.9 % % (38.0-47.0) MCV 86.9 fL fL (81.5-99.8) MCH 29.5 pg pg (27.9-34.1) MCHC 33.9 g/dL g/dL (32.4-36.7) RDW 15.9 % H % (11.5-15.2) Plt Count 313 10^3/uL 10^3/uL (150-400) MPV 10.3 fL fL (8.7-11.7) Neut % (Auto) 70.8 % % (39.3-74.2) Lymph % (Auto) 22.5 % % (15.0-45.0) Polk % (Auto) 4.4 % L % (4.5-13.0) Eos % (Auto) 0.8 % % (0.6-7.6) Baso % (Auto) 0.6 % % (0.3-1.7) Nucleat RBC Rel Count 0.0 % % (0.0-0.2) Absolute Neuts (auto) 9.77 10^3/uL H 10^3/uL (1.70-6.50) Absolute Lymphs (auto) 3.10 10^3/uL H 10^3/uL (1.00-3.00) Absolute Monos (auto) 0.61 10^3/uL 10^3/uL (0.30-0.80) Absolute Eos (auto) 0.11 10^3/uL 10^3/uL (0.03-0.40) Absolute Basos (auto) 0.08 10^3/uL 10^3/uL (0.02-0.10) Absolute Nucleated RBC 0.00 10^3/uL 10^3/uL (0-0.01) Immature Gran % 0.9 % % (0.0-1.1) Immature Gran # 0.12 10^3/uL H 10^3/uL (0.00-0.10) PT INR APTT VBG Lactic Acid Sodium 136 mEq/L mEq/L (134-144) Potassium 3.6 mEq/L mEq/L (3.5-5.2) Chloride 99 mEq/L mEq/L (97-110) Carbon Dioxide 20 mEq/l L mEq/l (22-31) Anion Gap 17 mEq/L H mEq/L (8-16) BUN 11 mg/dL mg/dL (7-23) Creatinine 1.0 mg/dL mg/dL (0.6-1.0) Estimated GFR > 60 Glucose 83 mg/dL mg/dL (70-100) Calcium 10.9 mg/dL H mg/dL (8.5-10.4) Phosphorus 3.7 mg/dL mg/dL (2.5-4.5) Total Bilirubin 0.8 mg/dL mg/dL (0.1-1.4) Conjugated Bilirubin 0.3 mg/dL mg/dL (0.0-0.5) Unconjugated Bilirubin 0.5 mg/dL mg/dL (0.0-1.1) AST 35 IU/L IU/L (14-46) ALT 37 IU/L IU/L (9-52) Alkaline Phosphatase 119 IU/L IU/L (38-126) Creatine Kinase 46 IU/L IU/L (0-156) Total Protein 8.1 g/dL g/dL (6.3-8.2) Albumin 4.6 g/dL g/dL (3.5-5.0) Lipase 126 IU/L IU/L (23-300) Beta HCG, Qual Urine Color YELLOW Urine Appearance CLEAR Urine pH 6.0 (5.0-7.5) Ur Specific Olden 1.016 (1.002-1.030) Urine Protein NEGATIVE (NEGATIVE) Urine Ketones NEGATIVE (NEGATIVE) Urine Blood NEGATIVE (NEGATIVE) Urine Nitrate NEGATIVE (NEGATIVE) Urine Bilirubin NEGATIVE (NEGATIVE) Urine Urobilinogen NEGATIVE EU EU (0.2-1.0) Ur Leukocyte Esterase NEGATIVE (NEGATIVE) Urine Glucose NEGATIVE (NEGATIVE) Medications Given: Sodium Chloride (Ns) 1,900 mls @ 3,800 mls/hr 30 ml/kg infuse over 30 min ( 1900 ml) IV EDNOW ONE PRN Reason: Protocol Stop: 04/29/17 09:49 Last Admin: 04/29/17 09:30 Dose: 1,900 mls Discontinued Medications Sodium Chloride (Ns) 1,000 mls @ 0 mls/hr IV EDNOW ONE; Wide Open PRN Reason: Protocol Stop: 04/29/17 08:32 Last Admin: 04/29/17 08:20 Dose: 1,000 mls Morphine Sulfate (Morphine) 4 mg IVP EDNOW ONE Stop: 04/29/17 08:32 Last Admin: 04/29/17 08:31 Dose: 4 mg Ondansetron HCl (Zofran) 4 mg IVP EDNOW ONE Stop: 04/29/17 08:32 Last Admin: 04/29/17 08:31 Dose: 4 mg Ondansetron HCl (Zofran) 4 mg IVP EDNOW ONE Stop: 04/29/17 09:32 Last Admin: 04/29/17 09:31 Dose: 4 mg Departure - Departure Disposition: [facility] Acute Clinical Impression: SIRS (systemic inflammatory response syndrome) Abdominal pain Qualifiers: Abdominal location: right upper quadrant Qualified Code(s): R10.11 - Right upper quadrant pain Condition: Good Referrals: Forrest Joseph MD [Primary Care Provider] - As per Instructions
[2017-04-29] MEDS ORDERED: ONDANSETRON 4 MG/2 ML VIAL IVP ONE ×2 (08:31→09:31)
[2017-04-29] MEDS ORDERED: NS 1,000 ML IV ONE (08:31)
[2017-04-29 08:38] LABS: % IMMATURE GRANULYOCYTES 0.9 % (0.0-1.1); ABSOLUTE IMMATURE GRANULOCYTES 0.12 10^3/uL (0.00-0.10); ADD DIFF? NO; ADD MORPH? NO; ADD SCAN? NO; ATYPICAL LYMPHOCYTE FLAG 0 (0-99); FRAGMENT RBC FLAG 0 (0-99); HEMATOCRIT 41.9 % (38.0-47.0); HEMOGLOBIN 14.2 g/dL (12.6-16.3); LEFT SHIFT FLG 0 (0-99); LIPEMIA HEMOLYSIS FLAG 90 (0-99); MEAN CELL HEMOGLOBIN 29.5 pg (27.9-34.1); MEAN CELL HEMOGLOBIN CONCENTR. 33.9 g/dL (32.4-36.7); MEAN CELL VOLUME 86.9 fL (81.5-99.8); MEAN PLATELET VOLUME 10.3 fL (8.7-11.7); PLATELET CLUMPS FLAG 0 (0-99); PLATELET COUNT 313 10^3/uL (150-400); RED BLOOD CELL COUNT 4.82 10^6/uL (4.18-5.33); RED CELL DISTRIBUTION WIDTH 15.9 % (11.5-15.2)
[2017-04-29 08:43] LABS: ALANINE AMINOTRANSFERASE 37 IU/L (9-52); ALBUMIN 4.6 g/dL (3.5-5.0); ALKALINE PHOSPHATASE 119 IU/L (38-126); ANION GAP 17 mEq/L (8-16); ASPARTATE AMINOTRANSFERASE 35 IU/L (14-46); BILIRUBIN,TOTAL 0.8 mg/dL (0.1-1.4); BILIRUBIN-CONJUGATED 0.3 mg/dL (0.0-0.5); BILIRUBIN-UNCONJUGATED 0.5 mg/dL (0.0-1.1); CALCIUM 10.9 mg/dL (8.5-10.4); CARBON DIOXIDE 20 mEq/l (22-31); CHLORIDE 99 mEq/L (97-110); GLOMERULAR FILTRATION RATE > 60; GLUCOSE 83 mg/dL (70-100); POTASSIUM 3.6 mEq/L (3.5-5.2); SODIUM 136 mEq/L (134-144); TOTAL PROTEIN 8.1 g/dL (6.3-8.2)
[2017-04-29 09:09] LABS: INR 0.98 (0.83-1.16); PROTIME(PATIENT) 12.9 SEC (12.0-15.0)
[2017-04-29 09:10] LABS: APTT 24.6 SEC (23.0-38.0)
[2017-04-29] MEDS ORDERED: NS 1,900 ML IV ONE (09:20)
[2017-04-29] MEDS ORDERED: PIPERACILLIN/TAZO 4.5 GM/DEX 100 ML IV ONE (09:46)
[2017-04-29 09:55] LABS: LACGHOST ORDER
[2017-04-29] MEDS ORDERED: ACETAMINOPHEN 325 MG TAB PO ONE (10:45)
[2017-04-29] MEDS ORDERED: ONDANSETRON 4 MG/2 ML VIAL IVP PRN (11:38)
[2017-04-29] MEDS ORDERED: ACETAMINOPHEN 325 MG TAB PO PRN (11:38)
[2017-04-29 11:42] LABS: LACGHOST ORDER
[2017-04-29 13:05] LABS: TROPONIN I < 0.012 ng/mL (0.000-0.034)
[2017-04-29] MEDS ORDERED: IOPAMIDOL (ISOVUE 370) 100 ML BTL IV ONE (14:00)
[2017-04-29] MEDS: ONDANSETRON DISINTEGRATING 4 MG TAB PO PRN (14:00)
--- NOTE | 2017-04-29 15:16 | GHP ---
[f rep st] HISTORY AND PHYSICAL DATE OF ADMISSION: 04/29/2017 HISTORY OF PRESENT ILLNESS: The patient is a 36-year-old female, who presented to the hospital with right upper quadrant and "kidney" pain. She was found to be tachycardic. She had a recent admissi on, where she presented with hallucinations, rhabdomyolysis, in the setting of recently having start ed fluoxetine, and was diagnosed with possible serotonin syndrome. She was also seen by Psychiatry, given concern for possible psychiatric illness, and they ultimately decided that this was medical a nd not psychiatric. She was discharged home, and has been off those medicines, and has been doing w ell. She tried to exercise, a couple of days following discharge, which was a few weeks ago, and emerson gil had some muscular pain. She presents today with increased right upper quadrant pain. She had a cholecystectomy years ago. It is not postprandial. It is radiating to both kidneys. She is not having urgency, frequency, dys uria. She is not , and she had some nausea. The ER says no vomiting. She mentioned that s he may have vomited to me. There is no diarrhea. There is no fever or chills. No cough or shortne ss of breath. Last menstrual period was 3 weeks ago. She denies recreational drugs, stimulant drug s, injection drug use. The patient does not drink heavy alcohol. Does not have a history of alcohol withdrawal. REVIEW OF SYSTEMS: Complete 10-point review of systems conducted and negative except as noted in th e HPI. PAST MEDICAL HISTORY: 1. Possible autoimmune hepatitis, although review of alternative institution labs suggested that emerson gil does not have this diagnosis. 2. IBS. 3. Depression/anxiety. 4. Chronic abdominal pain. 5. History of cholecystectomy. 6. Episode of rhabdomyolysis. 7. Possible serotonin syndrome. 8. Acute kidney injury, resolved. 9. Nonocclusive PIC line-related DVT, not anticoagulated. 10. Systemic inflammatory response syndrome without source of infection. 11. Acute hepatitis during her last admission that has resolved. SOCIAL HISTORY: No tobacco. Minimal alcohol. Lives in [place]. FAMILY HISTORY: Reviewed and unremarkable. ALLERGIES: Metoclopramide, prochlorperazine, promethazine. HOME MEDICATIONS: Percocet. PHYSICAL EXAM: PRESENTING VITAL: Temperature 36.8, but she spiked to 38 in the emergency departmen t. Blood pressure 139/93, pulse 126, breathing 20 times a minute, 95% on room air. She remained ta chycardic in the emergency department. GENERAL: In no acute distress. Sclerae anicteric. Orophar ynx clear. Mucous membranes are moist. NECK: Supple. No lymphadenopathy or JVD. LUNGS: Clear t o auscultation bilaterally. HEART: S1, S2. Tachycardic. ABDOMEN: Soft. There is right upper qu adrant tenderness without a clear Calderón sign. Bowel sounds are present. There is no rebound or gu arding. EXTREMITIES: No edema. Calves nontender. SKIN: Without rash. NEUROLOGIC: Nonfocal. LABS: White count is 13.8, it was 25 on presentation and it fell to 7. Hematocrit is 42, platelets are 313,000. Coagulation studies are normal. Venous lactate is elevated at 3.3, and it has fallen to 2.7 with volume resuscitation. Sodium 136, potassium 3.6, chloride 99, bicarb 20, BUN 11, creat inine 1.0, her anion gap is slightly elevated at 17, calcium is 10.9. LFTs normal. CK is normal. Troponin is normal. Beta HCG is negative. TSH is pending. IMAGING: Chest x-ray, interpreted by me, shows no acute cardiopulmonary disease. I have discussed the case with Dr. Jessie Dan. ASSESSMENT AND PLAN: A 36-year-old female, presents with fever and sepsis of uncertain source. 1. Sepsis. The patient has septic physiology as evidenced by an elevated venous lactate, tachycard ia, and fever. There is no clear source based on history and routine exam. I do acknowledge her ab dominal tenderness. She has an utterly negative urinalysis, making pyelonephritis less likely, but not possible. I have not screened her for pelvic inflammatory disease or other gynecologic problems , and I will discuss that with her and addend this note. 2. I think it is reasonable to scan her abdomen and pelvis for further evaluation. She has been vo lume resuscitated, and will repeat her lactate now to follow to normalization. 3. I will start her on piperacillin tazobactam for nosocomial infections. I think it is reasonable to withhold vancomycin given her absence of skin complaints, no hardware, low risk for MRSA. 4. Question serotonin syndrome. The patient has been off serotonergic medicine if her history is t o believe, which I do. She does not have clonus. She does not have diaphoresis or agitation. She d oes not have ocular movements. She is not hyperreflexic to tremor, but she has low-grade temperatur e. This is not consistent with a diagnosis of serotonin syndrome, and will follow. 5. Question pulmonary embolism. She had superficial thrombophlebitis, and she shows up with some v ague complaints of tachycardia. A CT PE has been ordered along with her abdominal imaging, and will follow. I will not therapeutically anticoagulate. 6. Query autoimmune hepatitis. She had normal LFTs today. 7. History of rhabdomyolysis. She feels muscle pain and is concerned she is going to develop. I w ill repeat her CK in the morning. She has no muscle tenderness. Her CK is completely normal. 8. Prophylaxis. Pharmacologic prophylaxis indicated. I started her on enoxaparin 40. 9. Disposition: ICU. /[id number]/MODL
[2017-04-29] MEDS ORDERED: PIPERACILLIN/TAZO 3.375 GM/DEX 50 ML IV SCH (16:00)
[2017-04-29] MEDS: LORazepam 2 MG/ML INJ IVP PRN ×2 (16:30→20:34)
[2017-04-29] MEDS: OXYCODONE/APAP 5/325 TAB PO PRN (17:53)
[2017-04-29] MEDS: ZOLPIDEM TARTRATE 5 MG TAB PO PRN (20:34)
[2017-04-29] MEDS: PIPERACILLIN/TAZO 3.375 GM/DEX 50 ML IV SCH (22:00)
[2017-04-30] MEDS: LORazepam 2 MG/ML INJ IVP PRN ×3 (00:45→08:45)
[2017-04-30] MEDS: PIPERACILLIN/TAZO 3.375 GM/DEX 50 ML IV SCH ×4 (04:16→21:31)
[2017-04-30 04:41] LABS: % IMMATURE GRANULYOCYTES 0.6 % (0.0-1.1); ABSOLUTE IMMATURE GRANULOCYTES 0.06 10^3/uL (0.00-0.10); ADD DIFF? NO; ADD MORPH? NO; ADD SCAN? NO; ATYPICAL LYMPHOCYTE FLAG 0 (0-99); FRAGMENT RBC FLAG 0 (0-99); HEMATOCRIT 34.4 % (38.0-47.0); HEMOGLOBIN 11.3 g/dL (12.6-16.3); LEFT SHIFT FLG 0 (0-99); LIPEMIA HEMOLYSIS FLAG 80 (0-99); MEAN CELL HEMOGLOBIN CONCENTR. 32.8 g/dL (32.4-36.7); MEAN CELL VOLUME 88.2 fL (81.5-99.8); MEAN PLATELET VOLUME 10.4 fL (8.7-11.7); PLATELET CLUMPS FLAG 0 (0-99); PLATELET COUNT 201 10^3/uL (150-400); RED CELL DISTRIBUTION WIDTH 15.5 % (11.5-15.2)
[2017-04-30 05:06] LABS: ALANINE AMINOTRANSFERASE 63 IU/L (9-52); ALBUMIN 3.3 g/dL (3.5-5.0); ALKALINE PHOSPHATASE 107 IU/L (38-126); ANION GAP 8 mEq/L (8-16); ASPARTATE AMINOTRANSFERASE 144 IU/L (14-46); BILIRUBIN,TOTAL 2.2 mg/dL (0.1-1.4); CALCIUM 9.4 mg/dL (8.5-10.4); CARBON DIOXIDE 25 mEq/l (22-31); CHLORIDE 100 mEq/L (97-110); CREATININE 0.9 mg/dL (0.6-1.0); GLOMERULAR FILTRATION RATE > 60; GLUCOSE 79 mg/dL (70-100); POTASSIUM 3.4 mEq/L (3.5-5.2); SODIUM 133 mEq/L (134-144); TOTAL PROTEIN 6.2 g/dL (6.3-8.2)
[2017-04-30 05:18] LABS: BILIRUBIN-CONJUGATED 0.8 mg/dL (0.0-0.5); BILIRUBIN-UNCONJUGATED 1.4 mg/dL (0.0-1.1)
[2017-04-30] MEDS: ENOXAPARIN 40 MG/0.4 ML SYR SC SCH (08:45)
[2017-04-30] MEDS: OXYCODONE/APAP 5/325 TAB PO PRN ×3 (12:18→20:22)
[2017-04-30 12:21] LABS: PHENCYCLIDINE URINE BCH < 6 ng/ml (NEGATIVE); PHENCYCLIDINE URINE BCH NEGATIVE (NEGATIVE); TETRAHYDROCANNABINOL URINE < 5 ng/mL (NEGATIVE); TETRAHYDROCANNABINOL URINE NEGATIVE (NEGATIVE)
[2017-04-30] MEDS: LORazepam 0.5 MG TAB PO PRN ×3 (12:50→21:02)
--- NOTE | 2017-04-30 15:23 | HOSPPROG ---
Hospitalist Progress Note Assessment/Plan: # SIRS - pt presented with leukocytosis and tachycardia - no clear source - UA and Blood Cx NGTD - CT abd (personally reviewed and interpreted) without acute findings shows chronic hepatomegaly with improved fatty infiltration Oxygen saturations 96% on room air - no clear source at this time if cultures remain negative times 24 would stop IV antibiotics - continue supportive care for abdominal discomfort nausea - continue IV fluids while PO in adequate # acute leukocytosis- resolved with supportive care and empiric antibiotics overnight- WBC 9 this a.m. - DC IV antibiotics in a.m. if cultures remain negative - suspect elevation at presentation secondary to stress of acute hospitalization - check urine toxicology # acute on chronic abdominal pain- patient does have a history of hepatitis whether autoimmune or not unclear Liver function tests at presentation normal- this a.m. with a minimal bump in AST ALT - abdominal imaging negative- would not recommend additional pictures at this time - recheck liver function tests in a.m. - DC IV pain meds- restart home narcotics p.o. # acute nausea- source unclear- no associated diarrhea- patient with many antiemetic allergies also reports Zofran does not work - very low-dose p.o. Ativan p.r.n. - continue IVF and encourage p.o. # depression with suspected underlying somatization syndrome- mother convinced patient is struggling from depression and historically many of her physical complaints manifest more when emotionally stressed - consulting mule packer for resources - re-initiation of depression treatment would be appropriate in the outpatient setting # prophylaxis Lovenox # diet as tolerated # disposition greater than 2 midnights as the patient requires ongoing IV fluids and IV antiemetics hopeful for discharge tomorrow I have discussed the case with checking [place] from Psychiatry she will consult and provide outpatient resources for patient and family Subjective: Still feels nauseated Objective: Vital Signs Temp Pulse Resp BP Pulse Ox 36.8 C 109 H 16 135/96 H 96 04/30/17 07:41 04/30/17 07:41 04/30/17 07:41 04/30/17 07:41 04/30/17 07:41 Laboratory Results 04/30/17 04:30 04/30/17 04:30 04/29/17 04/30/17 05/01/17 05:59 05:59 05:59 Intake Total 4000 Output Total 600 1000 Balance 3400 -1000 PT 12.9 SEC (12.0-15.0) 04/29/17 08:45 INR 0.98 (0.83-1.16) 04/29/17 08:45 - Physical Exam Constitutional: appears nourished Eyes: anicteric sclera Ears, Nose, Mouth, Throat: moist mucous membranes Cardiovascular: regular rate and rhythym Respiratory: no respiratory distress, no rales or rhonchi Gastrointestinal: normoactive bowel sounds Genitourinary: no bladder fullness Skin: warm Musculoskeletal: No asymmetric calves Neurologic: AAOx3 Psychiatric: interacting appropriately, depressed Lymph, Heme, Immunologic: no cervical LAD ICD10 Worksheet Patient Problems: Problems Problem Status Onset Abdominal pain Acute SIRS (systemic inflammatory response syndrome) Acute Altered mental status, unspecified Acute
[2017-04-30] MEDS: NS 1,000 ML IV SCH (19:42)
[2017-04-30] MEDS: ZOLPIDEM TARTRATE 5 MG TAB PO PRN (21:02)
[2017-05-01] MEDS: OXYCODONE/APAP 5/325 TAB PO PRN ×6 (00:10→22:03)
[2017-05-01] MEDS: PIPERACILLIN/TAZO 3.375 GM/DEX 50 ML IV SCH ×2 (04:34→09:16)
[2017-05-01 05:15] LABS: HEMATOCRIT 36.3 % (38.0-47.0); HEMOGLOBIN 11.8 g/dL (12.6-16.3); MEAN CELL HEMOGLOBIN 28.9 pg (27.9-34.1); MEAN CELL HEMOGLOBIN CONCENTR. 32.5 g/dL (32.4-36.7); RED BLOOD CELL COUNT 4.08 10^6/uL (4.18-5.33); RED CELL DISTRIBUTION WIDTH 15.5 % (11.5-15.2)
[2017-05-01 05:49] LABS: ALANINE AMINOTRANSFERASE 74 IU/L (9-52); ALBUMIN 3.7 g/dL (3.5-5.0); ALKALINE PHOSPHATASE 121 IU/L (38-126); ANION GAP 12 mEq/L (8-16); ASPARTATE AMINOTRANSFERASE 77 IU/L (14-46); BILIRUBIN,TOTAL 0.9 mg/dL (0.1-1.4); CALCIUM 9.1 mg/dL (8.5-10.4); CARBON DIOXIDE 23 mEq/l (22-31); CHLORIDE 102 mEq/L (97-110); CREATININE 0.8 mg/dL (0.6-1.0); GLOMERULAR FILTRATION RATE > 60; GLUCOSE 82 mg/dL (70-100); POTASSIUM 3.4 mEq/L (3.5-5.2); SODIUM 137 mEq/L (134-144); TOTAL PROTEIN 6.3 g/dL (6.3-8.2)
[2017-05-01] MEDS: ONDANSETRON DISINTEGRATING 4 MG TAB PO PRN ×2 (06:04→12:07)
[2017-05-01] MEDS: LORazepam 0.5 MG TAB PO PRN ×3 (06:05→20:01)
[2017-05-01] MEDS: ENOXAPARIN 40 MG/0.4 ML SYR SC SCH (09:16)
[2017-05-01] MEDS: NS 1,000 ML IV SCH ×2 (09:16→19:57)
[2017-05-01] MEDS ORDERED: HYDROmorphONE/DILAUDID 1 MG/ML SYR IVP ONE ×2 (14:14→20:45)
--- NOTE | 2017-05-01 14:34 | HOSPPROG ---
Hospitalist Progress Note Assessment/Plan: # SIRS - pt presented with leukocytosis and tachycardia - no clear source - UA and Blood Cx NGTD - CT abd (personally reviewed and interpreted) without acute findings but does shows chronic hepatomegaly with improved fatty infiltration Oxygen saturations 96% on room air - no clear source at this time. Will stop antibiotics, but check procalcitonin in the morning - continue supportive care for abdominal discomfort nausea - continue IV fluids while PO in adequate # acute on chronic abdominal pain- patient does have a history of hepatitis whether autoimmune or not unclear * Interestingly her liver function tests were normal on admission but then increased the day after and are still minimally increased * She does have abnormal liver on CT scan does not appear to have the scenario of LOZANO * I reviewed Dr. Sood consultation a few years ago - he did not believe that she did have autoimmune hepatitis * She has been having intermittent episodes of right upper quadrant pain since age of 20 # acute nausea- source unclear - patient with many antiemetic allergies also reports Zofran does not work - very low-dose p.o. Ativan p.r.n. - continue IVF and encourage p.o. # diarrhea * Stop antibiotics and check C diff # depression with suspected underlying somatization syndrome- mother convinced patient is struggling from depression and historically many of her physical complaints manifest more when emotionally stressed - consulting humidifier attendant for resources - re-initiation of depression treatment would be appropriate in the outpatient setting # prophylaxis Lovenox # diet as tolerated # disposition greater than 2 midnights as the patient requires ongoing IV fluids and IV antiemetics Subjective: Worsening right upper quadrant pain radiating to back. Continue nausea vomiting. Also some diarrhea Objective: Vital Signs Temp Pulse Resp BP Pulse Ox 36.7 C 106 H 12 133/88 H 97 05/01/17 08:00 05/01/17 08:00 05/01/17 08:00 05/01/17 08:00 05/01/17 08:00 Laboratory Results 05/01/17 04:41 05/01/17 04:41 04/30/17 05/01/17 05/02/17 05:59 05:59 05:59 Intake Total 4000 836 Output Total 600 1900 Balance 3400 -1064 PT 12.9 SEC (12.0-15.0) 04/29/17 08:45 INR 0.98 (0.83-1.16) 04/29/17 08:45 Discussed with Gastroenterology Old records reviewed and summarized - Physical Exam Constitutional: no apparent distress, appears nourished, not in pain Eyes: anicteric sclera, EOMI Ears, Nose, Mouth, Throat: moist mucous membranes, hearing normal Cardiovascular: regular rate and rhythym Respiratory: no respiratory distress Gastrointestinal: normoactive bowel sounds, soft, non-tender abdomen, tenderness (Right upper quadrant), No guarding, No rebound Neurologic: AAOx3 Psychiatric: interacting appropriately, not anxious, not encephalopathic, thought process linear ICD10 Worksheet Patient Problems: Problems Problem Status Onset Abdominal pain Acute SIRS (systemic inflammatory response syndrome) Acute Altered mental status, unspecified Acute
[2017-05-01] MEDS: LORazepam 2 MG/ML INJ IVP PRN ×2 (15:03→22:59)
[2017-05-01] MEDS: POTASSIUM Cl (KCl) 100 ML IV SCH ×2 (16:58→20:25)
[2017-05-01] MEDS: ZOLPIDEM TARTRATE 5 MG TAB PO PRN (19:57)
[2017-05-02] MEDS: OXYCODONE/APAP 5/325 TAB PO PRN ×6 (02:05→22:19)
[2017-05-02] MEDS: LORazepam 0.5 MG TAB PO PRN ×4 (04:33→20:15)
[2017-05-02 05:05] LABS: % IMMATURE GRANULYOCYTES 0.4 % (0.0-1.1); ABSOLUTE IMMATURE GRANULOCYTES 0.03 10^3/uL (0.00-0.10); ADD DIFF? NO; ADD MORPH? NO; ADD SCAN? NO; ATYPICAL LYMPHOCYTE FLAG 10 (0-99); FRAGMENT RBC FLAG 0 (0-99); HEMATOCRIT 33.4 % (38.0-47.0); HEMOGLOBIN 11.3 g/dL (12.6-16.3); LEFT SHIFT FLG 0 (0-99); LIPEMIA HEMOLYSIS FLAG 90 (0-99); MEAN CELL HEMOGLOBIN 29.4 pg (27.9-34.1); MEAN CELL HEMOGLOBIN CONCENTR. 33.8 g/dL (32.4-36.7); MEAN PLATELET VOLUME 10.4 fL (8.7-11.7); PLATELET CLUMPS FLAG 0 (0-99); PLATELET COUNT 204 10^3/uL (150-400); RED BLOOD CELL COUNT 3.84 10^6/uL (4.18-5.33); RED CELL DISTRIBUTION WIDTH 15.3 % (11.5-15.2)
[2017-05-02 05:23] LABS: ALANINE AMINOTRANSFERASE 56 IU/L (9-52); ALBUMIN 3.5 g/dL (3.5-5.0); ALKALINE PHOSPHATASE 99 IU/L (38-126); ANION GAP 11 mEq/L (8-16); ASPARTATE AMINOTRANSFERASE 44 IU/L (14-46); BILIRUBIN,TOTAL 0.8 mg/dL (0.1-1.4); BILIRUBIN-CONJUGATED 0.3 mg/dL (0.0-0.5); BILIRUBIN-UNCONJUGATED 0.5 mg/dL (0.0-1.1); CALCIUM 9.3 mg/dL (8.5-10.4); CARBON DIOXIDE 19 mEq/l (22-31); CHLORIDE 104 mEq/L (97-110); CREATININE 0.7 mg/dL (0.6-1.0); GLOMERULAR FILTRATION RATE > 60; GLUCOSE 80 mg/dL (70-100); POTASSIUM 3.3 mEq/L (3.5-5.2); SODIUM 134 mEq/L (134-144); TOTAL PROTEIN 6.4 g/dL (6.3-8.2)
[2017-05-02] MEDS: LORazepam 2 MG/ML INJ IVP PRN ×2 (08:33→16:50)
[2017-05-02] MEDS: ENOXAPARIN 40 MG/0.4 ML SYR SC SCH (08:34)
[2017-05-02] MEDS ORDERED: KETOROLAC 30 MG/1 ML SDV IVP PRN (11:53)
--- NOTE | 2017-05-02 11:56 | HOSPPROG ---
Hospitalist Progress Note Assessment/Plan: # SIRS - pt presented with leukocytosis and tachycardia - no clear source - UA and Blood Cx NGTD - CT abd (personally reviewed and interpreted) without acute findings but does shows chronic hepatomegaly with improved fatty infiltration Blood culture 1/2 g neg rods - restart abx until ID out # acute on chronic abdominal pain- patient does have a history of hepatitis whether autoimmune or not unclear * Interestingly her liver function tests were normal on admission but then increased the day after and are still minimally increased * She does have abnormal liver on CT scan does not appear to have the scenario of LOZANO * I reviewed Dr. Sood consultation a few years ago - he did not believe that she did have autoimmune hepatitis * She has been having intermittent episodes of right upper quadrant pain since age of 20 * lft's improving - ?transient bile duct blockage with cholangitis # acute nausea- source unclear - patient with many antiemetic allergies also reports Zofran does not work - very low-dose p.o. Ativan p.r.n. - continue IVF and encourage p.o. # diarrhea * cdiff pending # depression with suspected underlying somatization syndrome- mother convinced patient is struggling from depression and historically many of her physical complaints manifest more when emotionally stressed - consulting finish mender for resources - re-initiation of depression treatment would be appropriate in the outpatient setting # prophylaxis Lovenox # diet as tolerated # disposition greater than 2 midnights as the patient requires ongoing IV fluids and IV antiemetics Subjective: still with pain and nausea Objective: Vital Signs Temp Pulse Resp BP Pulse Ox 36.8 C 104 H 16 135/100 H 97 05/02/17 08:00 05/02/17 08:00 05/02/17 08:00 05/02/17 08:00 05/02/17 08:00 Laboratory Results 05/02/17 04:54 05/02/17 04:54 05/01/17 05/02/17 05/03/17 05:59 05:59 05:59 Intake Total 836 360 Output Total 1900 Balance -1064 360 PT 12.9 SEC (12.0-15.0) 04/29/17 08:45 INR 0.98 (0.83-1.16) 04/29/17 08:45 - Physical Exam Constitutional: no apparent distress, appears nourished, not in pain Eyes: anicteric sclera, EOMI Ears, Nose, Mouth, Throat: moist mucous membranes, hearing normal Cardiovascular: regular rate and rhythym Respiratory: no respiratory distress Gastrointestinal: normoactive bowel sounds, soft, non-tender abdomen, tenderness Skin: warm Neurologic: AAOx3 Psychiatric: interacting appropriately, not anxious, not encephalopathic, thought process linear ICD10 Worksheet Patient Problems: Problems Problem Status Onset Abdominal pain Acute SIRS (systemic inflammatory response syndrome) Acute Altered mental status, unspecified Acute
[2017-05-02] MEDS: ERTAPENEM 1 GM in NS 100 ML IV SCH (13:10)
[2017-05-02] MEDS: NS 1,000 ML IV SCH (13:11)
[2017-05-02] MEDS: HYDROmorphONE/DILAUDID 1 MG/ML SYR IVP PRN ×2 (13:12→21:33)
[2017-05-02] MEDS: POTASSIUM Cl (KCl) 100 ML IV SCH ×4 (16:50→22:00)
[2017-05-02] MEDS: ZOLPIDEM TARTRATE 5 MG TAB PO PRN (20:06)
[2017-05-03] MEDS: LORazepam 0.5 MG TAB PO PRN ×2 (03:29→09:14)
[2017-05-03] MEDS: OXYCODONE/APAP 5/325 TAB PO PRN ×3 (03:33→18:41)
[2017-05-03] MEDS: LORazepam 2 MG/ML INJ IVP PRN ×2 (04:07→17:33)
[2017-05-03 05:03] LABS: % IMMATURE GRANULYOCYTES 0.8 % (0.0-1.1); ABSOLUTE IMMATURE GRANULOCYTES 0.07 10^3/uL (0.00-0.10); ADD DIFF? NO; ADD MORPH? NO; ADD SCAN? NO; ATYPICAL LYMPHOCYTE FLAG 0 (0-99); FRAGMENT RBC FLAG 0 (0-99); HEMATOCRIT 34.4 % (38.0-47.0); HEMOGLOBIN 11.5 g/dL (12.6-16.3); LEFT SHIFT FLG 0 (0-99); LIPEMIA HEMOLYSIS FLAG 80 (0-99); MEAN CELL HEMOGLOBIN 29.4 pg (27.9-34.1); MEAN CELL HEMOGLOBIN CONCENTR. 33.4 g/dL (32.4-36.7); MEAN PLATELET VOLUME 10.7 fL (8.7-11.7); PLATELET CLUMPS FLAG 0 (0-99); PLATELET COUNT 209 10^3/uL (150-400); RED BLOOD CELL COUNT 3.91 10^6/uL (4.18-5.33); RED CELL DISTRIBUTION WIDTH 15.4 % (11.5-15.2)
[2017-05-03 05:17] LABS: ALANINE AMINOTRANSFERASE 47 IU/L (9-52); ALBUMIN 3.5 g/dL (3.5-5.0); ALKALINE PHOSPHATASE 97 IU/L (38-126); ANION GAP 10 mEq/L (8-16); ASPARTATE AMINOTRANSFERASE 28 IU/L (14-46); BILIRUBIN,TOTAL 0.5 mg/dL (0.1-1.4); BILIRUBIN-CONJUGATED 0.3 mg/dL (0.0-0.5); BILIRUBIN-UNCONJUGATED 0.2 mg/dL (0.0-1.1); CALCIUM 9.3 mg/dL (8.5-10.4); CARBON DIOXIDE 21 mEq/l (22-31); CHLORIDE 103 mEq/L (97-110); CREATININE 0.8 mg/dL (0.6-1.0); GLOMERULAR FILTRATION RATE > 60; GLUCOSE 98 mg/dL (70-100); POTASSIUM 3.4 mEq/L (3.5-5.2); SODIUM 134 mEq/L (134-144); TOTAL PROTEIN 6.3 g/dL (6.3-8.2)
[2017-05-03] MEDS: ENOXAPARIN 40 MG/0.4 ML SYR SC SCH (07:39)
[2017-05-03] MEDS: HYDROmorphONE/DILAUDID 1 MG/ML SYR IVP PRN (07:39)
[2017-05-03] MEDS: ERTAPENEM 1 GM in NS 100 ML IV SCH (09:24)
[2017-05-03] MEDS ORDERED: POTASSIUM CL 20 MEQ TAB PO ONE (10:28)
--- NOTE | 2017-05-03 15:00 | HOSPPROG ---
Hospitalist Progress Note Assessment/Plan: # SIRS - pt presented with leukocytosis and tachycardia - no clear source - UA and Blood Cx NGTD - CT abd (personally reviewed and interpreted) without acute findings but does shows chronic hepatomegaly with improved fatty infiltration Blood culture 1/2 g neg anaerobic rods - restart abx until ID out # acute on chronic abdominal pain- patient does have a history of hepatitis whether autoimmune or not unclear * Interestingly her liver function tests were normal on admission but then increased the day after and are still minimally increased * She does have abnormal liver on CT scan - possibly LOZANO * I reviewed Dr. Sood consultation a few years ago - he did not believe that she did have autoimmune hepatitis * She has been having intermittent episodes of right upper quadrant pain since age of 20 * lft's improving - ?transient bile duct blockage with cholangitis # acute nausea- source unclear - patient with many antiemetic allergies also reports Zofran does not work - very low-dose p.o. Ativan p.r.n. - continue IVF and encourage p.o. # diarrhea * cdiff pending # depression with suspected underlying somatization syndrome- mother convinced patient is struggling from depression and historically many of her physical complaints manifest more when emotionally stressed - consulting psychiatric aide for resources - re-initiation of depression treatment would be appropriate in the outpatient setting Discussed possibility of Munchausen syndrome with ID- with self innoculation of bacteria - will keep her in house to get better ID # prophylaxis Lovenox # diet as tolerated # disposition greater than 2 midnights as the patient requires ongoing IV fluids and IV antiemetics Subjective: feeling better Objective: Vital Signs Temp Pulse Resp BP Pulse Ox 36.7 C 102 H 16 132/85 H 97 05/03/17 07:33 05/03/17 07:33 05/03/17 07:33 05/03/17 07:33 05/03/17 07:33 Laboratory Results 05/03/17 04:34 05/03/17 04:34 05/02/17 05/03/17 05/04/17 05:59 05:59 05:59 Intake Total 360 Balance 360 PT 12.9 SEC (12.0-15.0) 04/29/17 08:45 INR 0.98 (0.83-1.16) 04/29/17 08:45 discussed with ID - Physical Exam Constitutional: no apparent distress, appears nourished, not in pain Eyes: anicteric sclera, EOMI Ears, Nose, Mouth, Throat: moist mucous membranes, hearing normal Cardiovascular: regular rate and rhythym Respiratory: no respiratory distress Gastrointestinal: normoactive bowel sounds, no palpable masses, tenderness (mild ) Neurologic: AAOx3 Psychiatric: interacting appropriately, not anxious, not encephalopathic, thought process linear ICD10 Worksheet Patient Problems: Problems Problem Status Onset Abdominal pain Acute SIRS (systemic inflammatory response syndrome) Acute Altered mental status, unspecified Acute
--- NOTE | 2017-05-03 17:15 | PCMIDPN ---
Assessment/Plan: Assessment: Patient known to me from prior admission a few weeks ago for presentation with serotonin syndrome. Patient now presents with a mild sepsis picture, abdominal pain/flank pain and an anaerobic gram-negative samantha in her blood. After review of all of the studies there is no clear etiology for this bacteremia. This is odd a 36-year-old female. She already has had a cholecystectomy. She maintains on empiric ertapenem therapy. Would continue this for the next couple of days and observe for continued improvement as well as maturation of the blood cultures. I am not convinced that the presentation a few weeks ago with serotonin syndrome and rhabdomyolysis was not secondary to a self harm event. Plan: 1. Continue IV ertapenem empirically. 2. Continue to observe blood cultures for further maturation. Objective: Ertapenem #2 Vital Signs Temp Pulse Resp BP Pulse Ox 36.9 C 104 H 20 137/90 H 97 05/03/17 16:00 05/03/17 16:00 05/03/17 16:00 05/03/17 16:00 05/03/17 16:00 Laboratory Results 05/03/17 04:34 05/03/17 04:34 05/02/17 05/03/17 05/04/17 05:59 05:59 05:59 Intake Total 360 Balance 360 - Physical Exam General Appearance: WD/WN, alert, non-toxic Skin: normal color, warm/dry, No rash ICD10 Worksheet Patient Problems: Problems Problem Status Onset Abdominal pain Acute SIRS (systemic inflammatory response syndrome) Acute Altered mental status, unspecified Acute
[2017-05-03] MEDS: ZOLPIDEM TARTRATE 5 MG TAB PO PRN (20:09)
[2017-05-04] MEDS: LORazepam 0.5 MG TAB PO PRN ×3 (00:30→15:55)
[2017-05-04] MEDS: OXYCODONE/APAP 5/325 TAB PO PRN ×3 (00:31→13:34)
[2017-05-04 07:12] VITALS: RESP 20
[2017-05-04] MEDS: ERTAPENEM 1 GM in NS 100 ML IV SCH (09:15)
[2017-05-04] MEDS: ENOXAPARIN 40 MG/0.4 ML SYR SC SCH (09:20)
--- NOTE | 2017-05-04 10:52 | PCMIDPN ---
Assessment/Plan: 1. Fusobacterium bacteremia, in patient with a history of a severe sore throat at the end of March on previous admission: Reviewed data from her previous hospitalization. Patient at that time complained of a severe sore throat, and presented with SIRS. Pierce screen negative and group a strep DNA negative. No other testing performed. Clinical presentation felt secondary to serotonin syndrome from new antidepressant. In this hospitalization, the patient's chest CT does not reveal septic pulmonary emboli, and she has no sore throat now or neck pain. Query whether previous hospitalization all secondary to fusobacterium. For now, will treat with metronidazole 500 mg p.o. three times daily given excellent bioavailability of this antibiotic. Stop date May 16. Warned her of Antabuse effect associated with this antibiotic. Gave her my card. Patient states she has an appointment with Dr. Forrest Joseph, her primary care doctor on Saturday. Repeat blood cultures have shown clearance. Before she goes, I would like to obtain an ultrasound of her neck to document no obvious clot in her jugular vein that we cannot appreciate on exam. Patient understands and is agreeable to this. 05/04/17 10:51 Subjective: I called the microbiology lab; the anaerobic gram-negative samantha is a fusobacterium. [employer] feels that it will likely be a fusobacterium necroforum. Patient states she had a severe sore throat at the end of last month during her previous hospitalization. She describes it as an unusual sore throat, that started on the right and migrated to the left. She states that it was severe. She denies sore throat now, no neck pain, shortness of breath or cough. Wants to go home. Objective: Ertapenem 1 g IV daily day 3. Afebrile Vital Signs Temp Pulse Resp BP Pulse Ox 36.7 C 93 20 122/81 H 97 05/04/17 07:10 05/04/17 07:10 05/04/17 07:10 05/04/17 07:10 05/04/17 07:10 Laboratory Results 05/03/17 04:34 05/03/17 04:34 05/03/17 05/04/17 05/05/17 05:59 05:59 05:59 Intake Total 110 Balance 110 Blood cultures 1/4 bottles with fusobacterium Repeat blood cultures sterile - Physical Exam General Appearance: alert, no apparent distress EENT: pharynx normal, other (I inserted my gloved hand into the patient's mouth. No evidence whatsoever of an odontogenic infection. No gingivitis.) Respiratory: lungs clear Cardiac/Chest: regular rate, rhythm, No systolic murmur Abdomen: other (some RUQ ttp) Skin: No rash ICD10 Worksheet Patient Problems: Problems Problem Status Onset Abdominal pain Acute SIRS (systemic inflammatory response syndrome) Acute Altered mental status, unspecified Acute
--- NOTE | 2017-05-04 11:12 | PDDCSUM ---
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 Adan Doss and Whitney Rivera of infectious disease PROCEDURES: CT scan of abdomen CT scan of chest doppler US of jugular veins HOSPITAL COURSE SUMMARY: This patient came to the hospital at this time with right upper quadrant pain and fevers and evidence of sepsis. Notably she had previously been to the hospital on April 03 when she had a severe sore throat as well as signs of systemic immune response syndrome. Blood cultures at that time were negative, though empirically admission she was treated meropenem and vancomycin. She improved at that time was discharged home, but a definitive diagnosis was never arrived at. She came back at this time quite ill and requiring vigorous fluid resuscitation. This time she has some mild elevation of hepatic transaminases and minimal elevation of bilirubin. CT scan of the abdomen showed evidence of some steatosis but no other abnormalities and CT of the chest was unrevealing. Blood cultures however did grow a fusobacterium during this admission. She is therefore diagnosed with linear syndrome. She has been treated here in the hospital with ertapenem and has actually responded quite nicely with that with resolution of fevers, sepsis, and improvement of abdominal pain. The sore throat that she had during her 1st presentation has not been present during this admission and her oral and pharyngeal and throat exams are unremarkable. US of the neck showed no evidence of Jugular thrombosis or other abnormality. At this time she is stable for DC home She understands her diagnosis, the need to complete course of abx treatment, and the symptoms to watch for indicating other related problems. PENDING TEST RESULTS: None MEDICATION CHANGES: Addition of Flagyl 500 mg three times daily for 12 more days as outpatient During her previous hospital admission there had been a question of possible serotonin syndrome related to an antidepressant; it appears this is quite unlikely at this point and when she is completely resolved from her infectious illness she could be considered for possible repeat trial of antidepressant if her clinical syndrome warrants that which can be decided between the patient and her primary care physician. FOLLOW-UP PLAN: She has an appointment this coming week with Dr. Joseph at [facility] She has been instructed regarding the need to continue her full course of antibiotic therapy, and given a list of warning symptoms which should prompt urgent assessment. Greater than 35 minutes bedside and care coordination time today
[2017-05-04 14:27] VITALS: BP 117/84; PULSE 85; TEMP 97.6; O2SAT 96
[2017-05-04] MEDS: ONDANSETRON DISINTEGRATING 4 MG TAB PO PRN (15:55)
== END 2017-05-04 16:52 | disposition home or self-care (01) | DRG 872 ==
LOC: OBSVTOIN 11:38 → F2N 12:06 → F3E 04-30 21:22
PROVIDERS: ADMIT Internal Medicine; ATTEND Internal Medicine
DX: A41.9 Sepsis, unspecified organism (principal); I80.8 Phlebitis and thrombophlebitis of other sites; A48.8 Other specified bacterial diseases
CPT/HCPCS: 80307; 96365; G0480; J1170; J1335; J1650; J1885; J2060; J2405; J2543; Q9967

== ENCOUNTER 2017-05-13 17:09 | Emergency (ER) | payer MEDICAID ==
[2017-05-13 17:20] VITALS: TEMP 99
[2017-05-13] MEDS ORDERED: HYDROmorphONE/DILAUDID 1 MG/ML INJ IVP ONE (18:26)
--- NOTE | 2017-05-13 18:26 | EDPHY ---
H & P Stated Complaint: NAUSEA, VOMITING SEEN IN ED LAST WEEKEND Time Seen by Provider: 05/13/17 18:24 HPI/ROS: HPI: This 37-year-old female who presents with Chief Complaint: Nausea, right upper quadrant pain Location: Right upper quadrant Quality: Pain Duration: 1-2 days Signs and Symptoms: + nausea, + vomiting, + T max orally of 100.1 F yesterday, + diarrhea, no blood in stools, no cough Timing: Intermittent Severity: 03/18 Context: Patient has a history of Lemiere's syndrome and Fusobacterium bacteremia currently taking Flagyl. She reports due to nausea and vomiting she missed her morning and afternoon doses. She has had right upper quadrant pain that is worse than her during her hospitalization over the last 1-2 days. She is concerned that she is getting sick again and is unable to take her medication. Has been using Zofran at home with mild transient relief. Denies using alcohol while taking Flagyl. Modifying Factors: zofran Comment: ROS: Constitutional: No fever, no chills, no weight loss Eyes: No blurred vision Respiratory: No shortness of breath, no cough Cardiovascular: No chest pain Gastrointestinal: No nausea, no vomiting no diarrhea Genitourinary: No dysuria Extremities: No myalgias Neurologic: No weakness, no numbness Skin: No rashes Hematologic: No bruising, no bleeding - Personal History LMP (Females 10-55): 1-7 Days Ago Current Tetanus Diphtheria and Acellular Pertussis (TDAP): Yes Tetanus Vaccine Date: < 10 YEARS - Medical/Surgical History Hx Asthma: No Hx Chronic Respiratory Disease: No Hx Diabetes: No Hx Cardiac Disease: No Hx Renal Disease: No Hx Cirrhosis: No Hx Alcoholism: No Hx HIV/AIDS: No Hx Splenectomy or Spleen Trauma: No Other PMH: psych/auto immune hepatitis - Social History Smoking Status: Never smoked - Physical Exam Exam: CONSTITUTIONAL: Middle-aged white female, polite and cooperative, awake and alert, no obvious distress HEENT: Atraumatic and normocephalic, PERRL, EOMI. Tympanic membranes clear. Oropharynx clear, no exudate and moist pink mucosa. Airway patent. No lymphadenopathy. No meningismus. Cardiovascular: Normal S1/S2, tachycardia, regular rhythm, without murmur rub or gallop. PULMONARY/CHEST: Symmetrical and nontender. Clear to auscultation bilaterally Good air movement. No accessory muscle usage. ABDOMEN: Soft, nondistended, moderate right upper quadrant and epigastric tenderness, no rebound, no guarding, no peritoneal signs, no masses or organomegaly. No CVAT. EXTREMITIES: 2/2 pulses, no deformities, no clubbing, no cyanosis or edema. NEUROLOGICAL: no focal neuro deficits. GCS 15. SKIN: Warm and dry, no erythema. no rash. Good capillary refill. Constitutional: Initial Vital Signs Temperature (C) 37.2 C 05/13/17 17:18 Heart Rate 111 H 05/13/17 17:18 Respiratory Rate 16 05/13/17 17:18 Blood Pressure 130/72 H 05/13/17 17:18 O2 Sat (%) 98 05/13/17 17:18 O2 Delivery Mode Room Air Allergies/Adverse Reactions: metoclopramide HCl [From Reglan] Allergy (Unknown, Verified 05/13/17 17:21) prochlorperazine edisylate [From Compazine] Allergy (Unknown, Verified 05/13/17 17:21) prochlorperazine maleate [From Compazine] Allergy (Unknown, Verified 05/13/17 17 :21) promethazine HCl [From Phenergan] Allergy (Unknown, Verified 05/13/17 17:21) Home Medications: Medication Instructions Recorded Metronidazole 500 mg PO TID #36 tablet 05/04/17 LORazepam [Ativan (*)] 0.5 mg PO Q4-6PRN PRN #12 tab 05/13/17 Medical Decision Making - Diagnostics Imaging Results: Imaging Impressions Chest X-Ray 05/13/17 18:14 Impression: Normal chest x-ray. ED Course/Re-evaluation: Sepsis workup 1824: Given 1 L normal saline, IV Dilaudid, IV Zofran, IV Flagyl Chest x-ray my read shows no pneumothorax, effusion, opacity Mild leukocytosis noted but all other labs unremarkable. Patient asking for IV Ativan which worked in the hospital last time. 2014: Spoke with [facility] Chow from [facility], reviewed patient's history, workup, physical exam. He recommends switching medications Augmentin 875 twice a day, patient may call in the morning for a follow-up appointment the next 1-2 days. 2039: Reassessed patient, no episodes of emesis and feels better after the Ativan and IV Dilaudid. Patient has declined to change from Flagyl to Augmentin. She has declined admission to the hospital for intractable nausea and vomiting despite my urging. She wishes to continue her course of Flagyl as she only has a few days left and follow-up with ID. She already has an appointment with her primary care provider tomorrow. Differential Diagnosis: Adult fever including but not limited to viral syndromes including influenza, urinary tract infection, pneumonia and sepsis. - Data Points Laboratory Results: Laboratory Results 05/13/17 19:00 05/13/17 18:35 05/13/17 05/13/17 05/13/17 20:18 19:00 18:35 WBC 10.21 10^3/uL H 10^3/uL (3.80-9.50) RBC 4.20 10^6/uL 10^6/uL (4.18-5.33) Hgb 12.4 g/dL L g/dL (12.6-16.3) Hct 37.9 % L % (38.0-47.0) MCV 90.2 fL fL (81.5-99.8) MCH 29.5 pg pg (27.9-34.1) MCHC 32.7 g/dL g/dL (32.4-36.7) RDW 16.3 % H % (11.5-15.2) Plt Count 280 10^3/uL 10^3/uL (150-400) MPV 11.0 fL fL (8.7-11.7) Neut % (Auto) 74.6 % H % (39.3-74.2) Lymph % (Auto) 17.1 % % (15.0-45.0) [place] % (Auto) 7.0 % % (4.5-13.0) Eos % (Auto) 0.5 % L % (0.6-7.6) Baso % (Auto) 0.5 % % (0.3-1.7) Nucleat RBC Rel Count 0.0 % % (0.0-0.2) Absolute Neuts (auto) 7.62 10^3/uL H 10^3/uL (1.70-6.50) Absolute Lymphs (auto) 1.75 10^3/uL 10^3/uL (1.00-3.00) Absolute Monos (auto) 0.71 10^3/uL 10^3/uL (0.30-0.80) Absolute Eos (auto) 0.05 10^3/uL 10^3/uL (0.03-0.40) Absolute Basos (auto) 0.05 10^3/uL 10^3/uL (0.02-0.10) Absolute Nucleated RBC 0.00 10^3/uL 10^3/uL (0-0.01) Immature Gran % 0.3 % % (0.0-1.1) Immature Gran # 0.03 10^3/uL 10^3/uL (0.00-0.10) PT INR APTT VBG Lactic Acid Sodium 135 mEq/L mEq/L (134-144) Potassium 4.1 mEq/L mEq/L (3.5-5.2) Chloride 99 mEq/L mEq/L (97-110) Carbon Dioxide 25 mEq/l mEq/l (22-31) Anion Gap 11 mEq/L mEq/L (8-16) BUN 9 mg/dL mg/dL (7-23) Creatinine 0.7 mg/dL mg/dL (0.6-1.0) Estimated GFR > 60 Glucose 86 mg/dL mg/dL (70-100) Calcium 10.6 mg/dL H mg/dL (8.5-10.4) Total Bilirubin 0.8 mg/dL mg/dL (0.1-1.4) Urine Color YELLOW Urine Appearance CLEAR Urine pH 7.0 (5.0-7.5) Ur Specific [place] 1.009 (1.002-1.030) Urine Protein NEGATIVE (NEGATIVE) Urine Ketones 1+ H (NEGATIVE) Urine Blood NEGATIVE (NEGATIVE) Urine Nitrate NEGATIVE (NEGATIVE) Urine Bilirubin NEGATIVE (NEGATIVE) Urine Urobilinogen NEGATIVE EU EU (0.2-1.0) Ur Leukocyte Esterase NEGATIVE (NEGATIVE) Urine Glucose NEGATIVE (NEGATIVE) 05/13/17 05/13/17 18:35 18:14 WBC RBC Hgb Hct MCV MCH MCHC RDW Plt Count MPV Neut % (Auto) Lymph % (Auto) [place] % (Auto) Eos % (Auto) Baso % (Auto) Nucleat RBC Rel Count Absolute Neuts (auto) Absolute Lymphs (auto) Absolute Monos (auto) Absolute Eos (auto) Absolute Basos (auto) Absolute Nucleated RBC Immature Gran % Immature Gran # PT 12.6 SEC SEC (12.0-15.0) INR 0.95 (0.83-1.16) APTT 25.3 SEC SEC (23.0-38.0) VBG Lactic Acid 1.3 mmol/L mmol/L (0.7-2.1) Sodium Potassium Chloride Carbon Dioxide Anion Gap BUN Creatinine Estimated GFR Glucose Calcium Total Bilirubin Urine Color Urine Appearance Urine pH Ur Specific [place] Urine Protein Urine Ketones Urine Blood Urine Nitrate Urine Bilirubin Urine Urobilinogen Ur Leukocyte Esterase Urine Glucose Medications Given: Discontinued Medications Hydromorphone HCl (Dilaudid) 1 mg IVP EDNOW ONE Stop: 05/13/17 18:27 Last Admin: 05/13/17 19:10 Dose: 1 mg Sodium Chloride (Ns) 1,000 mls @ 0 mls/hr IV EDNOW ONE; Wide Open PRN Reason: Protocol Stop: 05/13/17 18:33 Last Admin: 05/13/17 19:10 Dose: 1,000 mls Metronidazole/Sodium Chloride (Flagyl 500 Mg (Premix)) 100 mls @ 100 mls/hr IV EDNOW ONE PRN Reason: Protocol Stop: 05/13/17 19:31 Last Admin: 05/13/17 19:11 Dose: 100 mls Lorazepam (Ativan Injection) 1 mg IVP EDNOW ONE Stop: 05/13/17 20:48 Last Admin: 05/13/17 20:53 Dose: 1 mg Ondansetron HCl (Zofran) 4 mg IVP EDNOW ONE Stop: 05/13/17 18:33 Last Admin: 05/13/17 19:09 Dose: 4 mg Ondansetron HCl (Zofran) 4 mg IVP EDNOW ONE Stop: 05/13/17 20:06 Last Admin: 05/13/17 20:12 Dose: 4 mg Departure - Departure Disposition: Home, Routine, Self-Care Clinical Impression: Lemiere syndrome, Bacteremia Nausea and vomiting Qualifiers: Vomiting type: unspecified Vomiting Intractability: non-intractable Qualified Code(s): R11.2 - Nausea with vomiting, unspecified Condition: Good Instructions: Acute Nausea and Vomiting (ED), Bacteremia (ED) Additional Instructions: Use Ativan 1 mg every 4-6 hours as needed. Please use sparingly. Use only as a 2nd option if Zofran fails for nausea and vomiting. Take Flagyl as directed and complete the entire course. Call infectious disease office in the morning for a follow-up appointment per Dr. Chow. Attend follow-up appointment with primary care provider tomorrow. Referrals: Forrest Joseph MD [Primary Care Provider] - As per Instructions Prescriptions: LORazepam [Ativan (*)] 0.5 mg PO Q4-6PRN PRN #12 tab PRN Reason: Anxiety
[2017-05-13] MEDS ORDERED: NS 1,000 ML IV ONE (18:32)
[2017-05-13] MEDS ORDERED: ONDANSETRON 4 MG/2 ML VIAL IVP ONE ×2 (18:32→20:05)
[2017-05-13 19:00] LABS: APTT 25.3 SEC (23.0-38.0)
[2017-05-13 19:00] LABS: ANION GAP 11 mEq/L (8-16); BILIRUBIN,TOTAL 0.8 mg/dL (0.1-1.4); CALCIUM 10.6 mg/dL (8.5-10.4); CARBON DIOXIDE 25 mEq/l (22-31); CHLORIDE 99 mEq/L (97-110); CREATININE 0.7 mg/dL (0.6-1.0); GLOMERULAR FILTRATION RATE > 60; GLUCOSE 86 mg/dL (70-100); POTASSIUM 4.1 mEq/L (3.5-5.2); SODIUM 135 mEq/L (134-144)
[2017-05-13 19:04] LABS: INR 0.95 (0.83-1.16); PROTIME(PATIENT) 12.6 SEC (12.0-15.0)
[2017-05-13 19:05] LABS: % IMMATURE GRANULYOCYTES 0.3 % (0.0-1.1); ABSOLUTE IMMATURE GRANULOCYTES 0.03 10^3/uL (0.00-0.10); ADD DIFF? NO; ADD MORPH? NO; ADD SCAN? NO; ATYPICAL LYMPHOCYTE FLAG 0 (0-99); FRAGMENT RBC FLAG 0 (0-99); HEMATOCRIT 37.9 % (38.0-47.0); HEMOGLOBIN 12.4 g/dL (12.6-16.3); LEFT SHIFT FLG 0 (0-99); LIPEMIA HEMOLYSIS FLAG 80 (0-99); MEAN CELL HEMOGLOBIN 29.5 pg (27.9-34.1); MEAN CELL HEMOGLOBIN CONCENTR. 32.7 g/dL (32.4-36.7); MEAN CELL VOLUME 90.2 fL (81.5-99.8); PLATELET CLUMPS FLAG 10 (0-99); PLATELET COUNT 280 10^3/uL (150-400); RED CELL DISTRIBUTION WIDTH 16.3 % (11.5-15.2)
[2017-05-13] MEDS ORDERED: LORazepam 2 MG/ML INJ IVP ONE (20:47)
[2017-05-13] MEDS ORDERED: LORazepam 2 MG/ML INJ ONE (20:51)
[2017-05-13 20:54] LABS: COLOR YELLOW; LEUKOCYTE ESTERASE,URINE NEGATIVE (NEGATIVE); NITRITE,URINE NEGATIVE (NEGATIVE)
[2017-05-13 21:51] VITALS: BP 116/82; PULSE 98; RESP 18; O2SAT 96
[2017-05-13] MEDS ORDERED: LORazepam 1 MG TAB PO ONE (21:57)
== END 2017-05-13 22:10 | disposition home or self-care (01) ==
DX: I80.8 Phlebitis and thrombophlebitis of other sites (principal); R78.81 Bacteremia; R11.2 Nausea with vomiting, unspecified; E86.9 Volume depletion, unspecified
CPT/HCPCS: 96365; J1170; J2060; J2405

== ENCOUNTER 2017-05-19 12:50 | Inpatient (IN) | payer MEDICAID ==
[2017-05-19] MEDS ORDERED: ONDANSETRON DISINTEGRATING 4 MG TAB PO ONE (14:24)
--- NOTE | 2017-05-19 14:25 | EDPHY ---
H & P Stated Complaint: N/V for 1 wk Time Seen by Provider: 05/19/17 14:24 HPI/ROS: HPI: This is a 36-year-old female who presents with Chief Complaint: Nausea and vomiting Location: GI Quality: Nausea and vomiting Duration: 1-2 days Signs and Symptoms: + nausea, + vomiting greater than 10 times today, no fever, no diarrhea, no blood in stools, no cough, no dysuria, + mild sore throat Timing: Intermittent Severity: 03/18 Context: Patient has a history of Lemiere's syndrome and Fusobacterium bacteremia and recently completed course of Flagyl. She was seen in this ER by myself 05/13/2017 for similar symptoms. Nausea was able to be controlled and she completed her course of Flagyl this week. She reports she only had some nausea and vomiting x3 times in the last 5 days yesterday a greatly worsened and she is unable to keep any food or water down today. She has a Mirena IUD. Status post cholecystectomy. Modifying Factors: Zofran no relief Comment: ROS: Constitutional: No fever, no chills, no weight loss Eyes: No blurred vision Respiratory: No shortness of breath, no cough Cardiovascular: No chest pain Gastrointestinal: No nausea, no vomiting no diarrhea Genitourinary: No dysuria Extremities: No myalgias Neurologic: No weakness, no numbness Skin: No rashes Hematologic: No bruising, no bleeding MEDICAL/SURGICAL/SOCIAL HISTORY: Cholecystectomy. Source: Patient Exam Limitations: No limitations - Personal History LMP (Females 10-55): 8-14 Days Ago Current Tetanus/Diphtheria Vaccine: Yes Current Tetanus Diphtheria and Acellular Pertussis (TDAP): Yes Tetanus Vaccine Date: < 10 YEARS - Medical/Surgical History Hx Asthma: No Hx Chronic Respiratory Disease: No Hx Diabetes: No Hx Cardiac Disease: No Hx Renal Disease: No Hx Cirrhosis: No Hx Alcoholism: No Hx HIV/AIDS: No Hx Splenectomy or Spleen Trauma: No Other PMH: psych/auto immune hepatitis - Social History Smoking Status: Never smoked - Physical Exam Exam: CONSTITUTIONAL: Well-appearing adult white female, awake and alert, no obvious distress HEENT: Atraumatic and normocephalic, PERRL, EOMI. Tympanic membranes clear. . Oropharynx clear, no exudate and moist pink mucosa. Airway patent. No lymphadenopathy. No meningismus. Cardiovascular: Normal S1/S2, regular rate, regular rhythm, without murmur rub or gallop. PULMONARY/CHEST: Symmetrical and nontender. Clear to auscultation bilaterally Good air movement. No accessory muscle usage. ABDOMEN: Soft, nondistended,RUQ tenderness, no rebound, no guarding, no peritoneal signs, no masses or organomegaly. No CVAT. Bowel sounds heard x4 quadrants. EXTREMITIES: 2/2 pulses, no deformities, no clubbing, no cyanosis or edema. NEUROLOGICAL: no focal neuro deficits. GCS 15. SKIN: Warm and dry, no erythema. no rash. Good capillary refill. Constitutional: Initial Vital Signs Temperature (C) 37 C 05/19/17 13:01 Heart Rate 99 05/19/17 13:01 Respiratory Rate 16 05/19/17 13:01 Blood Pressure 101/74 05/19/17 13:01 O2 Sat (%) 97 05/19/17 13:01 O2 Delivery Mode Room Air Allergies/Adverse Reactions: metoclopramide HCl [From Reglan] Allergy (Unknown, Verified 05/13/17 17:21) prochlorperazine edisylate [From Compazine] Allergy (Unknown, Verified 05/13/17 17:21) prochlorperazine maleate [From Compazine] Allergy (Unknown, Verified 05/13/17 17 :21) promethazine HCl [From Phenergan] Allergy (Unknown, Verified 05/13/17 17:21) Home Medications: Medication Instructions Recorded Metronidazole 500 mg PO TID #36 tablet 05/04/17 LORazepam [Ativan (*)] 0.5 mg PO Q4-6PRN PRN #12 tab 05/13/17 Medical Decision Making ED Course/Re-evaluation: Labs, IV fluids, IV medications ordered Patient given Zofran, Ativan x 2, Haldol without relief 1520: Reassessed patient, symptoms not improved No signs of sepsis/transaminitis/electrolyte imbalance/anemia 1530: ED decision to consult for admission, spoke with hospitalist, Dr. Darnell, who kindly agrees to accept patient to provide further care Differential Diagnosis: Abdominal pain including but not limited to appendicitis, cholecystitis, gastritis and urinary tract infection. - Data Points Laboratory Results: Laboratory Results 05/19/17 14:55 05/19/17 14:55 05/19/17 05/19/17 05/19/17 14:55 14:55 14:55 WBC RBC Hgb Hct MCV MCH MCHC RDW Plt Count MPV Neut % (Auto) Lymph % (Auto) Crockett % (Auto) Eos % (Auto) Baso % (Auto) Nucleat RBC Rel Count Absolute Neuts (auto) Absolute Lymphs (auto) Absolute Monos (auto) Absolute Eos (auto) Absolute Basos (auto) Absolute Nucleated RBC Immature Gran % Immature Gran # PT 13.0 SEC SEC (12.0-15.0) INR 0.99 (0.83-1.16) APTT 25.8 SEC SEC (23.0-38.0) ABG Lactic Acid Sodium 136 mEq/L mEq/L (134-144) Potassium 4.2 mEq/L mEq/L (3.5-5.2) Chloride 101 mEq/L mEq/L (97-110) Carbon Dioxide 22 mEq/l mEq/l (22-31) Anion Gap 13 mEq/L mEq/L (8-16) BUN 15 mg/dL mg/dL (7-23) Creatinine 0.7 mg/dL mg/dL (0.6-1.0) Estimated GFR > 60 Glucose 90 mg/dL mg/dL (70-100) Calcium 9.6 mg/dL mg/dL (8.5-10.4) Total Bilirubin 0.5 mg/dL mg/dL (0.1-1.4) Conjugated Bilirubin 0.3 mg/dL mg/dL (0.0-0.5) Unconjugated Bilirubin 0.2 mg/dL mg/dL (0.0-1.1) AST 44 IU/L IU/L (14-46) ALT 50 IU/L IU/L (9-52) Alkaline Phosphatase 89 IU/L IU/L (38-126) Total Protein 7.2 g/dL g/dL (6.3-8.2) Albumin 4.3 g/dL g/dL (3.5-5.0) Lipase 46 IU/L IU/L (23-300) Beta HCG, Qual NEGATIVE 05/19/17 05/19/17 14:55 14:55 WBC 9.07 10^3/uL 10^3/uL (3.80-9.50) RBC 4.44 10^6/uL 10^6/uL (4.18-5.33) Hgb 13.2 g/dL g/dL (12.6-16.3) Hct 40.4 % % (38.0-47.0) MCV 91.0 fL fL (81.5-99.8) MCH 29.7 pg pg (27.9-34.1) MCHC 32.7 g/dL g/dL (32.4-36.7) RDW 15.6 % H % (11.5-15.2) Plt Count 324 10^3/uL 10^3/uL (150-400) MPV 11.1 fL fL (8.7-11.7) Neut % (Auto) 67.8 % % (39.3-74.2) Lymph % (Auto) 23.4 % % (15.0-45.0) Crockett % (Auto) 7.4 % % (4.5-13.0) Eos % (Auto) 0.7 % % (0.6-7.6) Baso % (Auto) 0.3 % % (0.3-1.7) Nucleat RBC Rel Count 0.0 % % (0.0-0.2) Absolute Neuts (auto) 6.15 10^3/uL 10^3/uL (1.70-6.50) Absolute Lymphs (auto) 2.12 10^3/uL 10^3/uL (1.00-3.00) Absolute Monos (auto) 0.67 10^3/uL 10^3/uL (0.30-0.80) Absolute Eos (auto) 0.06 10^3/uL 10^3/uL (0.03-0.40) Absolute Basos (auto) 0.03 10^3/uL 10^3/uL (0.02-0.10) Absolute Nucleated RBC 0.00 10^3/uL 10^3/uL (0-0.01) Immature Gran % 0.4 % % (0.0-1.1) Immature Gran # 0.04 10^3/uL 10^3/uL (0.00-0.10) PT INR APTT ABG Lactic Acid 1.0 mmol/L mmol/L (0.5-1.6) Sodium Potassium Chloride Carbon Dioxide Anion Gap BUN Creatinine Estimated GFR Glucose Calcium Total Bilirubin Conjugated Bilirubin Unconjugated Bilirubin AST ALT Alkaline Phosphatase Total Protein Albumin Lipase Beta HCG, Qual Medications Given: Discontinued Medications Haloperidol Lactate (Haldol Injection) 2.5 mg IVP EDNOW ONE Stop: 05/19/17 14:43 Last Admin: 05/19/17 14:58 Dose: 2.5 mg Sodium Chloride (Ns) 1,000 mls @ 0 mls/hr IV EDNOW ONE; Wide Open PRN Reason: Protocol Stop: 05/19/17 14:42 Last Admin: 05/19/17 14:59 Dose: 1,000 mls Sodium Chloride (Ns) 1,000 mls @ 0 mls/hr IV EDNOW ONE; Wide Open PRN Reason: Protocol Stop: 05/19/17 14:42 Last Admin: 05/19/17 15:00 Dose: 1,000 mls Lorazepam (Ativan Injection) 1 mg IVP EDNOW ONE Stop: 05/19/17 14:44 Last Admin: 05/19/17 14:59 Dose: 1 mg Lorazepam (Ativan Injection) 1 mg IVP EDNOW ONE Stop: 05/19/17 15:37 Last Admin: 05/19/17 15:39 Dose: 1 mg Ondansetron HCl (Zofran Odt) 4 mg PO EDNOW ONE Stop: 05/19/17 14:25 Last Admin: 05/19/17 14:29 Dose: 4 mg Departure - Departure Disposition: [facility] Acute Clinical Impression: Intractable nausea and vomiting Qualifiers: Vomiting type: cyclical vomiting Qualified Code(s): G43.A1 - Cyclical vomiting , intractable
[2017-05-19] MEDS ORDERED: NS 1,000 ML IV ONE ×2 (14:41)
[2017-05-19] MEDS ORDERED: HALOPERIDOL LACT 5 MG/ML INJ IVP ONE (14:42)
[2017-05-19] MEDS ORDERED: LORazepam 2 MG/ML INJ IVP ONE ×2 (14:43→15:36)
[2017-05-19 15:09] LABS: % IMMATURE GRANULYOCYTES 0.4 % (0.0-1.1); ABSOLUTE IMMATURE GRANULOCYTES 0.04 10^3/uL (0.00-0.10); ADD DIFF? NO; ADD MORPH? NO; ADD SCAN? NO; ATYPICAL LYMPHOCYTE FLAG 0 (0-99); FRAGMENT RBC FLAG 0 (0-99); HEMATOCRIT 40.4 % (38.0-47.0); HEMOGLOBIN 13.2 g/dL (12.6-16.3); LEFT SHIFT FLG 0 (0-99); LIPEMIA HEMOLYSIS FLAG 80 (0-99); MEAN CELL HEMOGLOBIN 29.7 pg (27.9-34.1); MEAN CELL HEMOGLOBIN CONCENTR. 32.7 g/dL (32.4-36.7); MEAN PLATELET VOLUME 11.1 fL (8.7-11.7); PLATELET CLUMPS FLAG 0 (0-99); PLATELET COUNT 324 10^3/uL (150-400); RED BLOOD CELL COUNT 4.44 10^6/uL (4.18-5.33); RED CELL DISTRIBUTION WIDTH 15.6 % (11.5-15.2)
[2017-05-19 15:17] LABS: INR 0.99 (0.83-1.16)
[2017-05-19 15:18] LABS: APTT 25.8 SEC (23.0-38.0)
[2017-05-19 15:31] LABS: ALANINE AMINOTRANSFERASE 50 IU/L (9-52); ALBUMIN 4.3 g/dL (3.5-5.0); ALKALINE PHOSPHATASE 89 IU/L (38-126); ANION GAP 13 mEq/L (8-16); ASPARTATE AMINOTRANSFERASE 44 IU/L (14-46); BILIRUBIN,TOTAL 0.5 mg/dL (0.1-1.4); BILIRUBIN-CONJUGATED 0.3 mg/dL (0.0-0.5); BILIRUBIN-UNCONJUGATED 0.2 mg/dL (0.0-1.1); CALCIUM 9.6 mg/dL (8.5-10.4); CARBON DIOXIDE 22 mEq/l (22-31); CHLORIDE 101 mEq/L (97-110); CREATININE 0.7 mg/dL (0.6-1.0); GLOMERULAR FILTRATION RATE > 60; GLUCOSE 90 mg/dL (70-100); POTASSIUM 4.2 mEq/L (3.5-5.2); SODIUM 136 mEq/L (134-144); TOTAL PROTEIN 7.2 g/dL (6.3-8.2)
[2017-05-19] MEDS ORDERED: LORazepam 2 MG/ML INJ ONE (15:38)
[2017-05-19] MEDS ORDERED: ACETAMINOPHEN 325 MG TAB PO PRN (16:42)
[2017-05-19] MEDS ORDERED: ONDANSETRON 4 MG/2 ML VIAL IVP PRN (16:42)
--- NOTE | 2017-05-19 17:09 | GHP ---
[f rep st] HISTORY AND PHYSICAL DATE OF ADMISSION: 05/19/2017 CHIEF COMPLAINT: Nausea, vomiting, and abdominal pain. HISTORY OF PRESENT ILLNESS: This is a 36-year-old female, who was admitted to [facility] in March of this year, where she was discharged on 04/10/2017, after being treated for systemic i nflammatory response syndrome, which was ultimately found to be due to Lemierre syndrome. She was re admitted to the hospital on 04/29/2017, with sepsis and questionable serotonin syndrome during that h ospital stay. She was discharged on the with the diagnosis of Lemierre syndrome. Since her discharge at the end of April, she presented to the emergency department on 05/13/2017 for nausea and right upper quadrant pain. She was treated with Ativan and IV Dilaudid and was sent out on Flagyl. The patient tells me that she has finished her course of antibiotics. Her sore throat is better, but it does persist. She has been taking Percocet on a daily basis due to right upper quadr ant pain, but has not been able to take it over the past 24 hours due to nausea and vomiting. She states that she has been throwing up since yesterday. She denies any bloody emesis or hematemesi s. She reports normal bowel movements. PAST MEDICAL HISTORY: 1. Possible autoimmune hepatitis. 2. IBS. 3. Depression/anxiety. 4. Chronic abdominal pain. 5. History of cholecystectomy. 6. Rhabdomyolysis. 7. Possible serotonin syndrome. 8. Acute kidney injury. 9. Nonocclusive PICC-related DVT. 10. Recent hospitalization for Lemierre syndrome. HOME MEDICATIONS: Reviewed. Refer to [employer] for details. ALLERGIES: Metoclopramide, prochlorperazine, and promethazine. SOCIAL HISTORY: She denies any tobacco. She denies any alcohol use. She lives in [place]. FAMILY HISTORY: Reviewed and noncontributory. REVIEW OF SYSTEMS: Comprehensive 10-point review of systems was done and is negative, except for as mentioned in the HPI. PHYSICAL EXAMINATION: VITAL SIGNS: Blood pressure 113/67, pulse of 90, respiratory rate 16, O2 sat 97% on room air. Temperature afebrile. GENERAL: No acute distress. HEAD: Normocephalic, atraumat ic. EYES: PERRLA. Sclerae anicteric. MOUTH: Moist mucous membranes. NECK: Supple. No lymphade nopathy. CARDIOVASCULAR: S1-S2. No JVD. No lower extremity edema. PULMONARY: Lungs are clear. No wheezes, rales, or rhonchi. ABDOMEN: Diffusely tender, without guarding or rebound tenderness. Bowel sounds are normoactive. There is no rebound tenderness. EXTREMITIES: No clubbing or cyanosis . NEURO: Cranial nerves 2-12 grossly intact. No focal motor or sensory deficits. SKIN: Clear. N o jaundice. DIAGNOSTICS: WBC is 9.07, hemoglobin 13.2, hematocrit 40.4, platelets 324. Sodium 136, potassium 4. 2, chloride 101, CO2 22, BUN 15, creatinine 0.7, glucose 90. LFTs unremarkable. Infectious disease consult note from 05/04/2017, was reviewed. Doppler ultrasound of the internal jugular veins done was without evidence of acute or chronic thrombus. Blood cultures done 05/02/2017 and 05/13 have not revealed any organisms. ASSESSMENT AND PLAN: This is a 36-year-old female with history of Lemierre syndrome that she was hos pitalized for and completed a course of Flagyl, who presents with: 1. Intractable nausea and vomiting with abdominal pain: At this time, I am uncertain the etiology o f her nausea and vomiting. She will be treated supportively with intravenous fluids and Ativan since she does not tolerate prochlorperazine or metoclopramide. She has tried Zofran at home, which has n ot worked. The patient does request intravenous pain medications, which I did caution her on. My ho pe is to resume oral pain medications in hopes to try to taper them off since she should probably not require oral opioids for treatment of hepatitis since her LFTs are now normal. I do not have a good explanation for why she continues to report right upper quadrant pain. A lipase done in the emergen cy department was normal. 2. History of Lemierre syndrome. PLAN: The patient does report persistent sore throat. I will defer further imaging at this time in the setting of her multiple negative blood cultures. Will continue to monitor her and defer starting antibiotics. /[id number]/MODL
[2017-05-19] MEDS: LORazepam 2 MG/ML INJ IVP PRN (20:09)
[2017-05-19] MEDS: HYDROmorphONE/DILAUDID 2 MG/ML INJ IVP PRN (23:19)
[2017-05-20] MEDS: HYDROmorphONE/DILAUDID 2 MG/ML INJ IVP PRN ×5 (05:14→21:55)
[2017-05-20] MEDS: LORazepam 2 MG/ML INJ IVP PRN ×3 (07:43→20:15)
--- NOTE | 2017-05-20 13:06 | HOSPPROG ---
Hospitalist Progress Note Assessment/Plan: 36-year-old with chronic recurrent abdominal pain. She is followed by a GI doctor to [place] with plans on having a liver biopsy done next Saturday to rule out autoimmune hepatitis. She was recently admitted to the hospital in March for presumed serotonin syndrome presenting with tachycardia altered mental status fever no infectious source was found. She was readmitted at the end of April with sore throat and eventually diagnosed with bacteremia and treated. She is readmitted with acute nausea vomiting. She has not been able to take any oral intake in since admission. This is similar to her previous admissions for abdominal pain. # nausea vomiting, unclear etiology possible cyclic vomiting. Labs were all normal. She has not had a fever. * Continue symptomatic care for another 24 hours * She will need IV fluids she is not taking any oral intake in the yet. * Minimize narcotics. * The patient needs additional midnight stay due to ongoing IV narcotic use and IV fluids secondary to intractable vomiting. * I will not increase her pain meds because she doesn't look in significant distress # recent hospitalization for the Lumier's syndrome status post adequate treatment. # history of chronic abdominal pain with negative workup followed by GI at [facility] # depression/anxiety placed on Prozac however developed possible serotonin syndrome we his hospitalization from March. # history of nonocclusive pick related DVT Subjective: Has not been able to eat anything since arrival due to nausea vomiting. Patient looks comfortable Objective: Vital Signs Temp Pulse Resp BP Pulse Ox 37.1 C 98 18 111/69 96 05/20/17 07:44 05/20/17 12:07 05/20/17 12:07 05/20/17 12:07 05/20/17 12:07 05/19/17 05/20/17 05/21/17 05:59 05:59 05:59 Intake Total 2350 Output Total 250 1250 Balance 2100 -1250 PT 13.0 SEC (12.0-15.0) 05/19/17 14:55 INR 0.99 (0.83-1.16) 05/19/17 14:55 - Physical Exam Constitutional: uncomfortable Eyes: PERRL Ears, Nose, Mouth, Throat: moist mucous membranes Cardiovascular: regular rate and rhythym, no murmur, rub, or gallop Respiratory: no respiratory distress, clear to auscultation Gastrointestinal: normoactive bowel sounds, tenderness, No guarding, No rebound , No distension Genitourinary: no bladder fullness Skin: warm, normal color Neurologic: AAOx3 Psychiatric: interacting appropriately, not anxious, not encephalopathic ICD10 Worksheet Patient Problems: Problems Problem Status Onset Altered mental status, unspecified Acute Abdominal pain Acute SIRS (systemic inflammatory response syndrome) Acute Intractable nausea and vomiting Acute
[2017-05-20] MEDS: D5W 1/2 NS W/ 20 KCl/L 1,000 ML IV SCH ×2 (13:42→21:56)
[2017-05-21] MEDS: LORazepam 2 MG/ML INJ IVP PRN ×4 (02:09→20:24)
[2017-05-21] MEDS: HYDROmorphONE/DILAUDID 2 MG/ML INJ IVP PRN ×2 (02:10→06:29)
[2017-05-21 06:02] LABS: % IMMATURE GRANULYOCYTES 0.6 % (0.0-1.1); ABSOLUTE IMMATURE GRANULOCYTES 0.06 10^3/uL (0.00-0.10); ADD DIFF? NO; ADD MORPH? NO; ADD SCAN? NO; ATYPICAL LYMPHOCYTE FLAG 10 (0-99); FRAGMENT RBC FLAG 0 (0-99); HEMATOCRIT 35.7 % (38.0-47.0); HEMOGLOBIN 11.7 g/dL (12.6-16.3); LEFT SHIFT FLG 0 (0-99); LIPEMIA HEMOLYSIS FLAG 80 (0-99); MEAN CELL HEMOGLOBIN 29.6 pg (27.9-34.1); MEAN CELL HEMOGLOBIN CONCENTR. 32.8 g/dL (32.4-36.7); MEAN CELL VOLUME 90.4 fL (81.5-99.8); MEAN PLATELET VOLUME 11.1 fL (8.7-11.7); PLATELET CLUMPS FLAG 0 (0-99); PLATELET COUNT 273 10^3/uL (150-400); RED BLOOD CELL COUNT 3.95 10^6/uL (4.18-5.33); RED CELL DISTRIBUTION WIDTH 15.4 % (11.5-15.2)
[2017-05-21 07:49] LABS: ALANINE AMINOTRANSFERASE 87 IU/L (9-52); ALBUMIN 3.3 g/dL (3.5-5.0); ALKALINE PHOSPHATASE 102 IU/L (38-126); ANION GAP 8 mEq/L (8-16); ASPARTATE AMINOTRANSFERASE 72 IU/L (14-46); BILIRUBIN,TOTAL 0.5 mg/dL (0.1-1.4); CALCIUM 9.2 mg/dL (8.5-10.4); CARBON DIOXIDE 21 mEq/l (22-31); CHLORIDE 105 mEq/L (97-110); CREATININE 0.6 mg/dL (0.6-1.0); GLOMERULAR FILTRATION RATE > 60; GLUCOSE 101 mg/dL (70-100); POTASSIUM 3.8 mEq/L (3.5-5.2); SODIUM 134 mEq/L (134-144)
[2017-05-21] MEDS: D5W 1/2 NS W/ 20 KCl/L 1,000 ML IV SCH ×2 (08:05→20:13)
[2017-05-21] MEDS ORDERED: HYDROmorphONE/DILAUDID 1 MG/ML INJ IVP PRN (08:59)
[2017-05-21] MEDS ORDERED: diphenhydrAMINE 25 MG CAP PO PRN (11:14)
--- NOTE | 2017-05-21 11:23 | HOSPPROG ---
Hospitalist Progress Note Assessment/Plan: 36-year-old with chronic recurrent abdominal pain. She is followed by a GI doctor to [place] with plans on having a liver biopsy done next Saturday to rule out autoimmune hepatitis. She was recently admitted to the hospital in March for presumed serotonin syndrome presenting with tachycardia altered mental status fever no infectious source was found. She was readmitted at the end of April with sore throat and eventually diagnosed with bacteremia and treated. She is readmitted with acute nausea vomiting. She has not been able to take any oral intake in since admission. This is similar to her previous admissions for abdominal pain. she is [facility], she saw her once and had a questionable history of a positive biopsy for autoimmune hepatitis in the past repeat biopsy was negative per patient report so the plan was to get a 3rd biopsy next week. Dr. Rowe had no other recommendations as she had only seen her 1 time Except to treat her symptomatically and have her follow up with her as an outpatient for possible ERCP to look for sphincter of Oddi dysfunction. # nausea vomiting, unclear etiology possible cyclic vomiting However her liver enzymes have risen a little bit overnight. She continues to have quite a bit a right upper quadrant pain, nausea vomiting. She had a CT scan done a month ago which was fairly unremarkable. She has a planned biopsy scheduled for next week. * Continue symptomatic care for another 24 hours, Will recheck her liver tests in the morning if she improves she can be discharged with follow-up with her GI doctor as an outpatient * if her symptoms persist would recommend GI consult especially in the setting of worsening liver function test for possible ERCP or MRI. * Continue current therapies for the time being. # recent hospitalization for the Lumier's syndrome status post adequate treatment. # history of chronic abdominal pain with negative workup followed by GI at [facility] # depression/anxiety placed on Prozac however developed possible serotonin syndrome we his hospitalization from March. * She presented at that time with confusion, elevated liver enzymes and acute renal failure. * Her liver enzymes had returned to normal post hospitalization. # history of nonocclusive pick related DVT Subjective: still with nausea vomiting and some abdominal pain. Objective: Vital Signs Temp Pulse Resp BP Pulse Ox 36.9 C 102 H 18 101/71 97 05/21/17 11:08 05/21/17 11:08 05/21/17 11:08 05/21/17 11:08 05/21/17 11:08 Laboratory Results 05/21/17 05:18 05/21/17 05:18 05/20/17 05/21/17 05/22/17 05:59 05:59 05:59 Intake Total 2350 685 Output Total 250 1660 Balance 2100 -975 PT 13.0 SEC (12.0-15.0) 05/19/17 14:55 INR 0.99 (0.83-1.16) 05/19/17 14:55 - Physical Exam Constitutional: uncomfortable Eyes: PERRL, anicteric sclera, EOMI Ears, Nose, Mouth, Throat: moist mucous membranes Cardiovascular: regular rate and rhythym, no murmur, rub, or gallop Respiratory: no respiratory distress, no rales or rhonchi Gastrointestinal: normoactive bowel sounds, no palpable masses, tenderness (ruq) Skin: warm Musculoskeletal: full muscle strength Neurologic: AAOx3 Psychiatric: interacting appropriately, not anxious ICD10 Worksheet Patient Problems: Problems Problem Status Onset Intractable nausea and vomiting Acute Abdominal pain Acute Altered mental status, unspecified Acute SIRS (systemic inflammatory response syndrome) Acute
[2017-05-21] MEDS: HYDROmorphONE/DILAUDID 1 MG/ML INJ IVP PRN ×4 (13:32→23:19)
[2017-05-21] MEDS: oxyCODONE IR 5 MG TAB PO PRN (16:05)
--- NOTE | 2017-05-21 16:32 | ASMTCMCOM ---
CM Note CM Note Notes: CM met w/ pt for dispo planning. Pt admitted with cyclical nausea and vomitting. Kathie, RN spoke w/ CM and had concerns regarding scars from cutting. CM spoke to pt about having behavioral supports. Pt reports that she has a therapist. Pt will most likely discharge independent without any needs. CM available for changes. Date Signed: 05/21/2017 04:31 PM Electronically Signed By:KARON Castillo
[2017-05-22] MEDS: LORazepam 2 MG/ML INJ IVP PRN ×2 (02:23→09:05)
[2017-05-22] MEDS: HYDROmorphONE/DILAUDID 1 MG/ML INJ IVP PRN ×4 (02:23→12:05)
[2017-05-22] MEDS: D5W 1/2 NS W/ 20 KCl/L 1,000 ML IV SCH (05:41)
[2017-05-22 05:56] LABS: HEMATOCRIT 35.7 % (38.0-47.0); HEMOGLOBIN 11.8 g/dL (12.6-16.3); MEAN CELL HEMOGLOBIN 29.8 pg (27.9-34.1); MEAN CELL HEMOGLOBIN CONCENTR. 33.1 g/dL (32.4-36.7); MEAN CELL VOLUME 90.2 fL (81.5-99.8); RED BLOOD CELL COUNT 3.96 10^6/uL (4.18-5.33); RED CELL DISTRIBUTION WIDTH 15.5 % (11.5-15.2)
[2017-05-22 06:08] LABS: ALANINE AMINOTRANSFERASE 71 IU/L (9-52); ALBUMIN 3.5 g/dL (3.5-5.0); ALKALINE PHOSPHATASE 92 IU/L (38-126); ANION GAP 9 mEq/L (8-16); ASPARTATE AMINOTRANSFERASE 37 IU/L (14-46); BILIRUBIN,TOTAL 0.4 mg/dL (0.1-1.4); CALCIUM 9.4 mg/dL (8.5-10.4); CARBON DIOXIDE 22 mEq/l (22-31); CHLORIDE 108 mEq/L (97-110); CREATININE 0.7 mg/dL (0.6-1.0); GLOMERULAR FILTRATION RATE > 60; GLUCOSE 100 mg/dL (70-100); POTASSIUM 3.7 mEq/L (3.5-5.2); SODIUM 139 mEq/L (134-144); TOTAL PROTEIN 6.2 g/dL (6.3-8.2)
[2017-05-22 08:52] VITALS: BP 114/73; PULSE 80; RESP 14; TEMP 98.8; O2SAT 96
[2017-05-22] MEDS ORDERED: ONDANSETRON 4 MG/2 ML VIAL IVP SCH (10:00)
--- NOTE | 2017-05-22 12:29 | PDDCSUM ---
Discharge Summary Discharge Summary: DISCHARGE DIAGNOSES: -acute exacerbation of likely chronic cyclic vomiting syndrome -acute exacerbation of chronic abdominal pain -ongoing mild elevation of hepatic transaminases, ? LOZANO vs other cause -recent episode of Lemierre's Syndrome, with no fever or other signs of acute infectious process COMPLICATIONS: NONE HOSPITAL COURSE: This patient has chronic abdominal pain and chronic recurrent bouts of intractable vomiting, was not controlling symptoms with antiemetics at home. She was admitted here and treated with IV fluids, IV antiemetics, and analgesic. She eventually recovered to the point of being able to eat and drink while taking scheduled antiemetics. She feels well enough to go home but is still symptomatic and requiring ongoing antiemetic medications. She has had previous extensive testing with blood tests, imaging, and endoscopies mostly elsewhere but included recent CT abd here, all unrevealing. She is discharged to home with prescription for zofran, and will follow up with her desktop publisher. MEDICATION CHANGES: none
[2017-05-22] MEDS: oxyCODONE IR 5 MG TAB PO PRN (12:39)
--- NOTE | 2017-05-22 14:20 | ASDISCHSUM ---
Discharge Information Plan Status:Home with No Needs Medically Cleared to Leave: Discharge Date:05/22/2017 02:17 PM CM D/C Disposition:Home, Routine, Self-Care ADT D/C Disposition:Home, Routine, Self-Care Projected Discharge Date:05/22/2017 12:00 AM Transportation at D/C:Family Discharge Delay Reason: Follow-Up Date:05/22/2017 12:00 AM Discharge Slot: Final Diagnosis: Placement Information Patient Contact Information Contact Name:BONITA Relationship:Mother Address:[address] [place] [address] [address] City:[facility] Phone: [facility] Code:[place] [address] Email: Financial Information Financial Class: Primary Plan Desc:[facility] Primary Plan Number:[id number] Secondary Plan Desc: Secondary Plan Number: Assessment Information [facility] CM Progress Note CM Note CM Note Notes: CM met w/ pt for dispo planning. Pt admitted with cyclical nausea and vomitting. FRANKIE Vázquez spoke w/ CM and had concerns regarding scars from cutting. CM spoke to pt about having behavioral supports. Pt reports that she has a therapist. Pt will most likely discharge independent without any needs. CM available for changes. Date Signed: 05/21/2017 04:31 PM Electronically Signed By:KARON Castillo Intervention Information
== END 2017-05-22 14:17 | disposition home or self-care (01) | DRG 103 ==
LOC: F3E 16:09 → OBSVTOIN 05-21 13:45
PROVIDERS: ADMIT Family Medicine; ATTEND Internal Medicine
DX: G43.A1 Cyclical vomiting, in migraine, intractable (principal); I80.8 Phlebitis and thrombophlebitis of other sites; F32.9 Major depressive disorder, single episode, unspecified; F41.9 Anxiety disorder, unspecified; G89.29 Other chronic pain; R10.9 Unspecified abdominal pain; Z97.5 Presence of (intrauterine) contraceptive device
CPT/HCPCS: 96374; G0378; J1170; J1200; J2060; J2405

== ENCOUNTER 2017-06-04 10:23 | Emergency (ER) | payer MEDICAID ==
[2017-06-04 10:29] VITALS: TEMP 98.2; O2SAT 97
--- NOTE | 2017-06-04 10:40 | EDPHY ---
H & P Stated Complaint: generalized abd pain/nausea (has appt with manuel joseph for tomorrow) HPI/ROS: This chart was generated in error. Please see completed chart. - Personal History LMP (Females 10-55): 1-7 Days Ago Current Tetanus/Diphtheria Vaccine: Yes Tetanus Vaccine Date: < 10 YEARS - Medical/Surgical History Hx Asthma: No Hx Chronic Respiratory Disease: No Hx Diabetes: No Hx Cardiac Disease: No Hx Renal Disease: No Hx Cirrhosis: No Hx Alcoholism: No Hx HIV/AIDS: No Hx Splenectomy or Spleen Trauma: No Other PMH: auto immune hepatitis, cholelithiasis, GERD,lemers syndrome - Social History Smoking Status: Never smoked Constitutional: Initial Vital Signs Temperature (C) 36.8 C 06/04/17 10:26 Heart Rate 92 06/04/17 10:26 Respiratory Rate 16 06/04/17 10:26 Blood Pressure 128/88 H 06/04/17 10:26 O2 Sat (%) 97 06/04/17 10:26 O2 Delivery Mode Room Air Allergies/Adverse Reactions: metoclopramide HCl [From Reglan] Allergy (Unknown, Verified 06/04/17 10:26) prochlorperazine edisylate [From Compazine] Allergy (Unknown, Verified 06/04/17 10:26) prochlorperazine maleate [From Compazine] Allergy (Unknown, Verified 06/04/17 10 :26) promethazine HCl [From Phenergan] Allergy (Unknown, Verified 06/04/17 10:26) Home Medications: Medication Instructions Recorded LORazepam [Ativan (*)] 0.5 mg PO Q4 PRN 05/19/17 Ondansetron HCl [Zofran] 8 mg PO Q8 PRN 05/19/17 oxyCODONE HCL/ACETAMINOPHEN 1 each PO Q4 05/19/17 [Percocet 10-325 mg Tablet] Medical Decision Making - Data Points Laboratory Results: Laboratory Results 06/04/17 10:45 06/04/17 10:55 Medications Given: Discontinued Medications Hydromorphone HCl (Dilaudid) 0.5 mg IVP EDNOW ONE Stop: 06/04/17 11:47 Last Admin: 06/04/17 11:57 Dose: 0.5 mg Hydromorphone HCl (Dilaudid) 0.5 mg IVP EDNOW ONE Stop: 06/04/17 14:11 Last Admin: 06/04/17 14:29 Dose: 0.5 mg Hydromorphone HCl (Dilaudid) 0.5 mg IVP EDNOW ONE Stop: 06/04/17 15:25 Last Admin: 06/04/17 15:33 Dose: 0.5 mg Sodium Chloride (Ns) 1,000 mls @ 0 mls/hr IV ONCE ONE PRN Reason: Wide Open Stop: 06/04/17 11:47 Last Admin: 06/04/17 11:57 Dose: 1,000 mls Ondansetron HCl (Zofran) 4 mg IVP EDNOW ONE Stop: 06/04/17 11:47 Last Admin: 06/04/17 11:57 Dose: 4 mg Departure - Departure Disposition: Home, Routine, Self-Care Clinical Impression: Abdominal pain Condition: Good Instructions: Abdominal Pain (ED) Additional Instructions: Abdominal Pain: Return to the Emergency Department immediately for increasing pain, fever, vomiting, or if not completely better in 8-12 hours. Keep scheduled appointment with Dr. Joseph tomorrow. Referrals: Manuel Joseph MD [Primary Care Provider] - As per Instructions Physician Review and Approval Statement: 06/04/17 10:40 Portions of this note were transcribed by the medical assembly. I, Dr. Alanna Wild, personally performed the history, physical exam, and medical decision- making; and confirmed the accuracy of the information in the transcribed note.
[2017-06-04 11:01] LABS: % IMMATURE GRANULYOCYTES 0.6 % (0.0-1.1); ABSOLUTE IMMATURE GRANULOCYTES 0.05 10^3/uL (0.00-0.10); ADD DIFF? NO; ADD MORPH? NO; ADD SCAN? NO; ATYPICAL LYMPHOCYTE FLAG 0 (0-99); FRAGMENT RBC FLAG 0 (0-99); HEMATOCRIT 38.7 % (38.0-47.0); HEMOGLOBIN 12.8 g/dL (12.6-16.3); LEFT SHIFT FLG 0 (0-99); LIPEMIA HEMOLYSIS FLAG 80 (0-99); MEAN CELL HEMOGLOBIN 29.7 pg (27.9-34.1); MEAN CELL HEMOGLOBIN CONCENTR. 33.1 g/dL (32.4-36.7); MEAN CELL VOLUME 89.8 fL (81.5-99.8); MEAN PLATELET VOLUME 10.7 fL (8.7-11.7); PLATELET CLUMPS FLAG 0 (0-99); PLATELET COUNT 327 10^3/uL (150-400); RED BLOOD CELL COUNT 4.31 10^6/uL (4.18-5.33); RED CELL DISTRIBUTION WIDTH 14.7 % (11.5-15.2)
[2017-06-04 11:05] LABS: COLOR YELLOW; LEUKOCYTE ESTERASE,URINE NEGATIVE (NEGATIVE); NITRITE,URINE NEGATIVE (NEGATIVE)
[2017-06-04 11:14] LABS: BACTERIA 1+ /hpf (NONE SEEN); MUCUS TRACE /lpf (NONE-1+)
[2017-06-04 11:16] LABS: ANION GAP 9 mEq/L (8-16); CALCIUM 9.8 mg/dL (8.5-10.4); CARBON DIOXIDE 26 mEq/l (22-31); CHLORIDE 101 mEq/L (97-110); CREATININE 0.7 mg/dL (0.6-1.0); GLOMERULAR FILTRATION RATE > 60; GLUCOSE 89 mg/dL (70-100); POTASSIUM 3.4 mEq/L (3.5-5.2); SODIUM 136 mEq/L (134-144)
[2017-06-04] MEDS ORDERED: NS 1,000 ML IV ONE (11:46)
[2017-06-04] MEDS ORDERED: HYDROmorphONE/DILAUDID 1 MG/ML INJ IVP ONE ×3 (11:46→15:24)
[2017-06-04] MEDS ORDERED: ONDANSETRON 4 MG/2 ML VIAL IVP ONE (11:46)
--- NOTE | 2017-06-04 11:49 | EDPHY ---
H & P Smoking Status: Never smoked Time Seen by Provider: 06/04/17 10:40 HPI/ROS: CHIEF COMPLAINT: Abdominal pain HISTORY OF PRESENT ILLNESS: 36-year-old female presents to the emergency department by private vehicle complaining of abdominal pain. Patient has a history of chronic abdominal pain and had a liver biopsy 8 days ago at [facility]. The patient immediately had pain after the procedure was admitted to the hospital for few days. She was discharged still with ongoing pain. She feels that the pain has not resolved it is not getting worse. She feels nauseous although no vomiting. She states any kind of movement causes increasing pain. She states that she was diagnosed with chemical peritonitis from the medication used from the biopsy. She called her legislative advocate today and they advised her to come to the emergency department for evaluation. No fevers or chills. She has generalized abdominal pain as well as lower back discomfort. She does history of chronic abdominal pain although feels that this is much different and feels much more severe. She is urinating normally. REVIEW OF SYSTEMS: Constitutional: No fever, no chills. Eyes: No double or blurry vision. ENT: No sore throat. Respiratory: No cough, no shortness of breath. Cardiac: No chest pain. Gastrointestinal: Abdominal pain as above. No vomiting or diarrhea. Genitourinary: No dysuria. Musculoskeletal: No neck or back pain. Skin: No rashes. Neurological: No headache. (Reina Ruff) Past Medical/Surgical History: Chronic abdominal pain, cyclical vomiting syndrome, cholecystectomy, anxiety, depression (Speedy,Reina M) Social History: Single and lives in [place] (Speedy,Reina M) Physical Exam: General Appearance: Alert, no distress. Afebrile. Mild distress. Eyes: Pupils equal and round. Extraocular motions are all intact. ENT: Mouth: Mucous membranes moist. Respiratory: No wheezing, rhonchi, or rales, lungs are clear to auscultation. Cardiovascular: Regular rate and rhythm. Gastrointestinal: Abdomen is soft. She has diffuse tenderness with palpation in the left and the right upper quadrant. There is no rebound, guarding or masses noted. No CVA tenderness bilaterally. Neurological: Alert and oriented x 3, cranial nerves II through XII grossly intact Skin: Warm and dry, no rashes. Musculoskeletal: Nontender to palpate along the cervical, thoracic or lumbar spine. Neck is supple. Extremities: Full range of motion and no peripheral edema. Psychiatric: Patient is oriented X 3, there is no agitation. (Reina Ruff) Constitutional: Initial Vital Signs Temperature (C) 36.8 C 06/04/17 10:26 Heart Rate 92 06/04/17 10:26 Respiratory Rate 16 06/04/17 10:26 Blood Pressure 128/88 H 06/04/17 10:26 O2 Sat (%) 97 06/04/17 10:26 O2 Delivery Mode Room Air Allergies/Adverse Reactions: metoclopramide HCl [From Reglan] Allergy (Unknown, Verified 06/04/17 10:26) prochlorperazine edisylate [From Compazine] Allergy (Unknown, Verified 06/04/17 10:26) prochlorperazine maleate [From Compazine] Allergy (Unknown, Verified 06/04/17 10 :26) promethazine HCl [From Phenergan] Allergy (Unknown, Verified 06/04/17 10:26) Home Medications: Medication Instructions Recorded LORazepam [Ativan (*)] 0.5 mg PO Q4 PRN 05/19/17 Ondansetron HCl [Zofran] 8 mg PO Q8 PRN 05/19/17 oxyCODONE HCL/ACETAMINOPHEN 1 each PO Q4 05/19/17 [Percocet 10-325 mg Tablet] Medical Decision Making ED Course/Re-evaluation: 36-year-old female presents to the emergency department with ongoing abdominal pain for last 8 days. She had a liver biopsy done on Saturday, 8 days ago and has continued ongoing pain. She was advised admitted to [facility] on 05/27 and discharged on 05/29/2017. She had a CT scan at that time which showed no evidence of fluid collection, abscess or perforation. She was discharged and continues to have ongoing pain. She feels that it is exactly the same pain as what brought her in to the hospital after her procedure. She does not feel that the pain has changed. The patient has a history of chronic pain and has been weaning off of her opiates. She states that she was doing well until this most recent procedure. Laboratory studies reveal normal white blood cell count. Normal chemistries. Liver function tests reveal elevated alkaline phosphatase of 295. Conjugated bili of 0.6. The patient has had no vomiting in the emergency department. She received IV normal saline and 0.5 mg of Dilaudid IV per her request. She received a total of 1.5 mg of IV Dilaudid. The patient was offered admission to the hospital, however she declined. She has a scheduled appointment with Dr. Forrest Joseph tomorrow. I did speak with Dr. Joseph to inform him of the workup done in the emergency department. I did also speak with Dr. Rowe, the patient's legislative advocate, who recommended talking with Interventional Radiology since this is not a complication that she is familiar with. I did try calling Dr. Maurice Garcia multiple times in Interventional Radiology, however he did not call back. Her medical records from [facility] were reviewed in [facility]. The case was discussed with Dr. Wild, secondary supervising physician, who also evaluated the patient and agrees with treatment and plan. (Reina Ruff) Differential Diagnosis: Including but not limited to chronic abdominal pain, perforation, bowel obstruction, hepatitis, GERD, peptic ulcer disease, constipation, opiate dependence (Reina Ruff) Other Provider: I have evaluated and participated in the management of this patient. My co- signature indicates that I have reviewed this chart and that I agree with the findings and the plan of care as documented. My personal history and physical findings include: 36-year-old female with acute on chronic abdominal pain. 1 week ago she underwent percutaneous liver biopsy. This was performed at a [facility]. She carries a diagnosis of autoimmune hepatitis and tells me that this biopsy was being performed to confirm that diagnosis. She states that the diagnosis was, in fact, confirmed. She presents today with continued upper abdominal pain, worse in the right upper quadrant, that has been present since her liver biopsy. A CT scan of the abdomen was performed after the biopsy , reportedly because of this pain, and no abnormalities were noted. She has not been febrile. She does not have an elevated white blood cell count. Liver functions reviewed today. On examination she has tenderness across her upper abdomen, worse in the right upper quadrant. There is no palpable hepatomegaly. There is no guarding. I do not suspect infection secondary to her biopsy. She has had a CT scan that did not show abscess, perforation, fluid collection, or bleeding. I do not think that a repeat CT scan would be revealing or helpful. She and I discussed this. She has had multiple abdominal CT scans in her life. VALE Ruff has researched her past records and spoken with her legislative advocate. The patient tells me that she was told that she has "chemical peritonitis "and that this has been causing her pain. She believes that this is because of the Surgicel that was used during her biopsy. Be that as it may, I do not recommend additional evaluation in the emergency department today. She has an appointment with her primary care provider tomorrow. She has received 1 L normal saline IV and 1.5 mg IV Dilaudid in the emergency department. She is in the process of weaning from her oral opiates and had been doing well with that until this recent liver biopsy. She appears to continue with that process and has pain medication at home to use as needed. She understands the danger signs that should prompt her to be re-evaluated. ( Alanna Wild) - Data Points Laboratory Results: Laboratory Results 06/04/17 10:45 06/04/17 10:55 Medications Given: Discontinued Medications Hydromorphone HCl (Dilaudid) 0.5 mg IVP EDNOW ONE Stop: 06/04/17 11:47 Last Admin: 06/04/17 11:57 Dose: 0.5 mg Hydromorphone HCl (Dilaudid) 0.5 mg IVP EDNOW ONE Stop: 06/04/17 14:11 Last Admin: 06/04/17 14:29 Dose: 0.5 mg Hydromorphone HCl (Dilaudid) 0.5 mg IVP EDNOW ONE Stop: 06/04/17 15:25 Last Admin: 06/04/17 15:33 Dose: 0.5 mg Sodium Chloride (Ns) 1,000 mls @ 0 mls/hr IV ONCE ONE PRN Reason: Wide Open Stop: 06/04/17 11:47 Last Admin: 06/04/17 11:57 Dose: 1,000 mls Ondansetron HCl (Zofran) 4 mg IVP EDNOW ONE Stop: 06/04/17 11:47 Last Admin: 06/04/17 11:57 Dose: 4 mg Departure - Departure Disposition: Home, Routine, Self-Care Clinical Impression: Abdominal pain Qualifiers: Abdominal location: generalized Qualified Code(s): R10.84 - Generalized abdominal pain Condition: Good Instructions: Abdominal Pain (ED) Additional Instructions: Abdominal Pain: Return to the Emergency Department immediately for increasing pain, fever, vomiting, or if not completely better in 8-12 hours. Keep scheduled appointment with Dr. Joseph tomorrow. Referrals: Forrest Joseph MD [Primary Care Provider] - As per Instructions
[2017-06-04 11:58] LABS: ALBUMIN 3.9 g/dL (3.5-5.0); BILIRUBIN,TOTAL 0.9 mg/dL (0.1-1.4); BILIRUBIN-CONJUGATED 0.6 mg/dL (0.0-0.5); BILIRUBIN-UNCONJUGATED 0.3 mg/dL (0.0-1.1); TOTAL PROTEIN 6.7 g/dL (6.3-8.2)
[2017-06-04 15:35] VITALS: BP 114/77; PULSE 98; RESP 20
== END 2017-06-04 15:41 | disposition home or self-care (01) ==
DX: G89.18 Other acute postprocedural pain (principal); R10.84 Generalized abdominal pain; Z90.49 Acquired absence of other specified parts of digestive tract
CPT/HCPCS: 96374; J1170; J2405

== ENCOUNTER 2017-06-10 13:28 | Emergency (ER) | payer MEDICAID ==
--- NOTE | 2017-06-10 15:20 | EDPHY ---
H & P Stated Complaint: gen abd pain, worse on R, nausea x 2 weeks HPI/ROS: HPI CHIEF COMPLAINT: Abdominal pain HISTORY OF PRESENT ILLNESS: This patient 36-year-old female significant past medical history for remote cyclic vomiting syndrome, chronic abdominal pain takes daily Percocet, she presents emergency room with abdominal pain. She states ever since having her liver biopsy to confirm autoimmune hepatitis back in May she has chronic diffuse abdominal pain it is a acutely gotten worse over the past few days. She has had associated nausea. Vomiting. Denies diarrhea or fever. No chest pain or shortness of breath. She describes her pain is severe 10/10 diffuse crampy. This is her 2nd ER visit in approximately a week. She drove all the way down from [place] do this abdominal pain. She states her Percocet is not helping. She tells me the pain has gotten worse. Past Medical History: Significant past medical history for cyclic vomiting syndrome, chronic abdominal pain, anxiety and depression Past Surgical History: Cholecystectomy Social History: Denies daily use of drugs alcohol tobacco products. Family History: Noncontributory ROS REVIEW OF SYSTEMS: A comprehensive 10 point review of systems is otherwise negative aside from elements mentioned in the history of present illness. Exam Constitutional triage nursing summary reviewed, vital signs reviewed, awake/ alert. Eyes normal conjunctivae and sclera, EOMI, PERRLA. HENT normal inspection, atraumatic, moist mucus membranes, no epistaxis, neck supple/ no meningismus, no raccoon eyes. Respiratory clear to auscultation bilaterally, normal breath sounds, no respiratory distress, no wheezing. Cardiovascular rate normal, regular rhythm, no murmur, no edema, distal pulses normal. Gastrointestinal mildly tender diffusely, no peritoneal signs, no rebound, no guarding, normal bowel sounds, no distension, no pulsatile mass. Genitourinary no CVA tenderness. Musculoskeletal no midline vertebral tenderness, full range of motion, no calf swelling, no tenderness of extremities, no meningismus, good pulses, neurovascularly intact. Skin pink, warm, & dry, no rash, skin atraumatic. Neurologic awake, alert and oriented x 3, AAOx3, moves all 4 extremities equally, motor intact, sensory intact, CN II-XII intact, normal cerebellar, normal vision, normal speech. Psychiatric normal mood/affect. Heme/Lymph/Immune no lymphadenopathy. Differential diagnosis includes but is not limited to and in no particular order : Bowel obstruction, appendicitis, gallbladder disease, diverticulitis, colitis , enteritis, perforated viscus, gastritis, GERD, esophagitis, urinary tract infection, pyelonephritis, kidney stones Medical Decision Making: Plan for this patient IV establishment IV fluid bolus 1 L normal saline, 1 mg IV Dilaudid for pain control, 4 mg IV Zofran for nausea , abdominal blood work, CT scan abdomen pelvis with IV contrast. We discussed risk versus benefit about CT scan. She has had a lot of CTs in the past. However she states her abdominal pain is severe that she would like to have further imaging to help delineate her abdominal pain. She understands the risk of further radiation. Re-evaluation: 171: CT scan report called to me by Dr. Zeke Henry. This shows free fluid present in the abdomen. Tracks along the liver down her right cup into her pelvis. Mild to moderate amount of free fluid. Unclear etiology of this fluid at this time. No otherwise acute monitor process. Normal appendix. 172: I spoke with General surgery Dr. Cortez, will come and see and evaluate the patient. Most likely hemoperitoneum causing abdominal pain from recent liver biopsy. 183: Spoke with Dr. Joseph her PCP. went over case in detail. Okay with her going home if pain controlled. Will follow up in office this week. 191: After great discussion with Dr. Medrano as well as this patient's primary care doctor as well as the patient herself she would like to go home she has a follow-up appointment Dr. Joseph tomorrow. On re-examination abdomen is soft. She does have mild tenderness but pain is well controlled. She feels comfortable going home with IV Valium I Toradol. She would like 1 more dose of Dilaudid here which I have ordered. Dilaudid prescription for limited supply of pain medicine for home. Follow up with PCP. Additionally she understands return emergency room she develops worsening abdominal pain fever vomiting. Source: Patient - Personal History LMP (Females 10-55): 8-14 Days Ago Current Tetanus/Diphtheria Vaccine: Unsure Current Tetanus Diphtheria and Acellular Pertussis (TDAP): Unsure Tetanus Vaccine Date: < 10 YEARS - Medical/Surgical History Hx Asthma: No Hx Chronic Respiratory Disease: No Hx Diabetes: No Hx Cardiac Disease: No Hx Renal Disease: No Hx Cirrhosis: No Hx Alcoholism: No Hx HIV/AIDS: No Hx Splenectomy or Spleen Trauma: No Other PMH: auto immune hepatitis, cholelithiasis, GERD,lemers syndrome - Social History Smoking Status: Never smoked Constitutional: Initial Vital Signs Temperature (C) 36.7 C 06/10/17 13:36 Heart Rate 108 H 06/10/17 13:36 Respiratory Rate 16 06/10/17 13:36 Blood Pressure 106/73 06/10/17 13:36 O2 Sat (%) 96 06/10/17 13:36 O2 Delivery Mode Nasal Cannula O2 (L/minute) 2 Allergies/Adverse Reactions: metoclopramide HCl [From Reglan] Allergy (Unknown, Verified 06/04/17 10:26) prochlorperazine edisylate [From Compazine] Allergy (Unknown, Verified 06/04/17 10:26) prochlorperazine maleate [From Compazine] Allergy (Unknown, Verified 06/04/17 10 :26) promethazine HCl [From Phenergan] Allergy (Unknown, Verified 06/04/17 10:26) Home Medications: Medication Instructions Recorded LORazepam [Ativan (*)] 0.5 mg PO Q4 PRN 05/19/17 Ondansetron HCl [Zofran] 8 mg PO Q8 PRN 05/19/17 HYDROmorphone HCL [Dilaudid 2 mg 2 mg PO BID #14 tab 06/10/17 (*)] Medical Decision Making - Diagnostics Imaging Results: Imaging Impressions Abdomen CT 06/10/17 15:27 Impression: New mild free fluid in the abdomen and pelvis, which is nonspecific. Patient is status post cholecystectomy with intrahepatic and extrahepatic biliary dilatation, similar in appearance to the CT in April. 2- cm cyst right ovary. No evidence for appendicitis. Results called and discussed with Dr. Hayden Harvey on June 10, 2017 at 1714 hours. - Data Points Laboratory Results: Laboratory Results 06/10/17 15:40 06/10/17 15:40 06/10/17 06/10/17 06/10/17 17:05 15:40 15:40 WBC RBC Hgb Hct MCV MCH MCHC RDW Plt Count MPV Neut % (Auto) Lymph % (Auto) [place] % (Auto) Eos % (Auto) Baso % (Auto) Nucleat RBC Rel Count Absolute Neuts (auto) Absolute Lymphs (auto) Absolute Monos (auto) Absolute Eos (auto) Absolute Basos (auto) Absolute Nucleated RBC Immature Gran % Immature Gran # PT INR APTT Sodium 137 mEq/L mEq/L (134-144) Potassium 3.6 mEq/L mEq/L (3.5-5.2) Chloride 99 mEq/L mEq/L (97-110) Carbon Dioxide 26 mEq/l mEq/l (22-31) Anion Gap 12 mEq/L mEq/L (8-16) BUN 17 mg/dL mg/dL (7-23) Creatinine 0.7 mg/dL mg/dL (0.6-1.0) Estimated GFR > 60 Glucose 98 mg/dL mg/dL (70-100) Calcium 9.9 mg/dL mg/dL (8.5-10.4) Total Bilirubin 1.1 mg/dL mg/dL (0.1-1.4) Conjugated Bilirubin 0.6 mg/dL H mg/dL (0.0-0.5) Unconjugated Bilirubin 0.5 mg/dL mg/dL (0.0-1.1) AST 17 IU/L IU/L (14-46) ALT 31 IU/L IU/L (9-52) Alkaline Phosphatase 256 IU/L H IU/L (38-126) Total Protein 7.1 g/dL g/dL (6.3-8.2) Albumin 4.1 g/dL g/dL (3.5-5.0) Lipase 42 IU/L IU/L (23-300) Beta HCG, Qual NEGATIVE Urine Color YELLOW Urine Appearance CLEAR Urine pH 7.0 (5.0-7.5) Ur Specific [place] 1.026 (1.002-1.030) Urine Protein NEGATIVE (NEGATIVE) Urine Ketones NEGATIVE (NEGATIVE) Urine Blood NEGATIVE (NEGATIVE) Urine Nitrate NEGATIVE (NEGATIVE) Urine Bilirubin NEGATIVE (NEGATIVE) Urine Urobilinogen NEGATIVE EU EU (0.2-1.0) Ur Leukocyte Esterase NEGATIVE (NEGATIVE) Urine Glucose NEGATIVE (NEGATIVE) 06/10/17 06/10/17 15:40 15:40 WBC 13.06 10^3/uL H 10^3/uL (3.80-9.50) RBC 4.47 10^6/uL 10^6/uL (4.18-5.33) Hgb 13.3 g/dL g/dL (12.6-16.3) Hct 39.2 % % (38.0-47.0) MCV 87.7 fL fL (81.5-99.8) MCH 29.8 pg pg (27.9-34.1) MCHC 33.9 g/dL g/dL (32.4-36.7) RDW 14.3 % % (11.5-15.2) Plt Count 333 10^3/uL 10^3/uL (150-400) MPV 10.7 fL fL (8.7-11.7) Neut % (Auto) 67.3 % % (39.3-74.2) Lymph % (Auto) 22.4 % % (15.0-45.0) [place] % (Auto) 7.5 % % (4.5-13.0) Eos % (Auto) 1.7 % % (0.6-7.6) Baso % (Auto) 0.4 % % (0.3-1.7) Nucleat RBC Rel Count 0.0 % % (0.0-0.2) Absolute Neuts (auto) 8.79 10^3/uL H 10^3/uL (1.70-6.50) Absolute Lymphs (auto) 2.93 10^3/uL 10^3/uL (1.00-3.00) Absolute Monos (auto) 0.98 10^3/uL H 10^3/uL (0.30-0.80) Absolute Eos (auto) 0.22 10^3/uL 10^3/uL (0.03-0.40) Absolute Basos (auto) 0.05 10^3/uL 10^3/uL (0.02-0.10) Absolute Nucleated RBC 0.00 10^3/uL 10^3/uL (0-0.01) Immature Gran % 0.7 % % (0.0-1.1) Immature Gran # 0.09 10^3/uL 10^3/uL (0.00-0.10) PT 12.5 SEC SEC (12.0-15.0) INR 0.94 (0.83-1.16) APTT 22.9 SEC L SEC (23.0-38.0) Sodium Potassium Chloride Carbon Dioxide Anion Gap BUN Creatinine Estimated GFR Glucose Calcium Total Bilirubin Conjugated Bilirubin Unconjugated Bilirubin AST ALT Alkaline Phosphatase Total Protein Albumin Lipase Beta HCG, Qual Urine Color Urine Appearance Urine pH Ur Specific [place] Urine Protein Urine Ketones Urine Blood Urine Nitrate Urine Bilirubin Urine Urobilinogen Ur Leukocyte Esterase Urine Glucose Medications Given: Ketorolac Tromethamine (Toradol) 30 mg IVP ONCE ONE Stop: 06/10/17 18:36 Last Admin: 06/10/17 18:53 Dose: Not Given Discontinued Medications Diazepam (Valium Injection) 5 mg IVP EDNOW ONE Stop: 06/10/17 18:29 Last Admin: 06/10/17 18:52 Dose: 5 mg Hydromorphone HCl (Dilaudid) 1 mg IVP EDNOW ONE Stop: 06/10/17 15:29 Last Admin: 06/10/17 15:54 Dose: 1 mg Hydromorphone HCl (Dilaudid) 1 mg IVP EDNOW ONE Stop: 06/10/17 17:35 Last Admin: 06/10/17 17:43 Dose: 1 mg Sodium Chloride (Ns) 1,000 mls @ 0 mls/hr IV EDNOW ONE; Wide Open PRN Reason: Protocol Stop: 06/10/17 15:23 Last Admin: 06/10/17 15:52 Dose: 1,000 mls Sodium Chloride (Ns) 1,000 mls @ 0 mls/hr IV ONCE ONE PRN Reason: Wide Open Stop: 06/10/17 17:36 Last Admin: 06/10/17 17:43 Dose: 1,000 mls Ketorolac Tromethamine (Toradol) 15 mg IVP EDNOW ONE Stop: 06/10/17 18:29 Last Admin: 06/10/17 18:50 Dose: 15 mg Ondansetron HCl (Zofran) 4 mg IVP EDNOW ONE Stop: 06/10/17 15:23 Last Admin: 06/10/17 15:53 Dose: 4 mg Ondansetron HCl (Zofran) 4 mg IVP EDNOW ONE Stop: 06/10/17 17:36 Last Admin: 06/10/17 17:42 Dose: 4 mg Departure - Departure Disposition: Home, Routine, Self-Care Clinical Impression: Abdominal pain Qualifiers: Abdominal location: generalized Qualified Code(s): R10.84 - Generalized abdominal pain Condition: Fair Instructions: Acute Abdominal Pain (ED) Additional Instructions: 1.Return emergency room if develops worsening abdominal pain fever vomiting. 2. Please follow up with your primary care doctor. 3. I have given you a limited supply of Dilaudid for pain control. This medication can make her sleepy. Be careful how much you take. Only take as prescribed. Referrals: Forrest Joseph MD [Primary Care Provider] - As per Instructions Prescriptions: HYDROmorphone HCL [Dilaudid 2 mg (*)] 2 mg PO BID #14 tab
[2017-06-10] MEDS ORDERED: NS 1,000 ML IV ONE ×2 (15:22→17:35)
[2017-06-10] MEDS ORDERED: ONDANSETRON 4 MG/2 ML VIAL IVP ONE ×2 (15:22→17:35)
[2017-06-10] MEDS ORDERED: HYDROmorphONE/DILAUDID 1 MG/ML INJ IVP ONE ×4 (15:28→19:18)
[2017-06-10 16:07] LABS: % IMMATURE GRANULYOCYTES 0.7 % (0.0-1.1); ABSOLUTE IMMATURE GRANULOCYTES 0.09 10^3/uL (0.00-0.10); ADD DIFF? NO; ADD MORPH? NO; ADD SCAN? NO; ATYPICAL LYMPHOCYTE FLAG 10 (0-99); FRAGMENT RBC FLAG 0 (0-99); HEMATOCRIT 39.2 % (38.0-47.0); HEMOGLOBIN 13.3 g/dL (12.6-16.3); LEFT SHIFT FLG 0 (0-99); LIPEMIA HEMOLYSIS FLAG 90 (0-99); MEAN CELL HEMOGLOBIN 29.8 pg (27.9-34.1); MEAN CELL HEMOGLOBIN CONCENTR. 33.9 g/dL (32.4-36.7); MEAN CELL VOLUME 87.7 fL (81.5-99.8); MEAN PLATELET VOLUME 10.7 fL (8.7-11.7); PLATELET CLUMPS FLAG 0 (0-99); PLATELET COUNT 333 10^3/uL (150-400); RED BLOOD CELL COUNT 4.47 10^6/uL (4.18-5.33); RED CELL DISTRIBUTION WIDTH 14.3 % (11.5-15.2)
[2017-06-10 16:22] LABS: INR 0.94 (0.83-1.16); PROTIME(PATIENT) 12.5 SEC (12.0-15.0)
[2017-06-10 16:23] LABS: ALANINE AMINOTRANSFERASE 31 IU/L (9-52); ALBUMIN 4.1 g/dL (3.5-5.0); ALKALINE PHOSPHATASE 256 IU/L (38-126); ANION GAP 12 mEq/L (8-16); APTT 22.9 SEC (23.0-38.0); ASPARTATE AMINOTRANSFERASE 17 IU/L (14-46); BILIRUBIN,TOTAL 1.1 mg/dL (0.1-1.4); BILIRUBIN-CONJUGATED 0.6 mg/dL (0.0-0.5); BILIRUBIN-UNCONJUGATED 0.5 mg/dL (0.0-1.1); CALCIUM 9.9 mg/dL (8.5-10.4); CARBON DIOXIDE 26 mEq/l (22-31); CHLORIDE 99 mEq/L (97-110); CREATININE 0.7 mg/dL (0.6-1.0); GLOMERULAR FILTRATION RATE > 60; GLUCOSE 98 mg/dL (70-100); POTASSIUM 3.6 mEq/L (3.5-5.2); SODIUM 137 mEq/L (134-144); TOTAL PROTEIN 7.1 g/dL (6.3-8.2)
[2017-06-10] MEDS ORDERED: IOPAMIDOL (ISOVUE-300) 100 ML BTL ONE (16:26)
[2017-06-10 17:21] LABS: COLOR YELLOW; LEUKOCYTE ESTERASE,URINE NEGATIVE (NEGATIVE); NITRITE,URINE NEGATIVE (NEGATIVE)
[2017-06-10] MEDS ORDERED: DIAZEPAM 10 MG/2 ML SYR IVP ONE (18:28)
[2017-06-10] MEDS ORDERED: KETOROLAC 15 MG/1 ML SDV IVP ONE (18:28)
[2017-06-10] MEDS ORDERED: KETOROLAC 30 MG/1 ML SDV IVP ONE (18:35)
[2017-06-10 18:51] VITALS: TEMP 98.4
[2017-06-10 18:53] VITALS: RESP 16
[2017-06-10 18:55] VITALS: BP 117/77
[2017-06-10 19:25] VITALS: PULSE 85; O2SAT 96
--- NOTE | 2017-06-11 05:11 | GCON ---
[f rep st] CONSULTATION DATE OF CONSULTATION: 06/10/2017 REFERRING PHYSICIAN: Hayden Harvey MD REASON FOR EVALUATION: Abdominal pain. HISTORY OF PRESENT ILLNESS: 36-year-old female with a significant history for autoimmune hepatitis. She underwent a percutaneous liver biopsy on May 27. She reports having a severe worsening acute on chronic abdominal pain since her biopsy. Imaging done at that time disclosed no evidence of perihepatic fluid or other abdominal ascites. She was seen in the emergency room a week ago with similar pain. She had been admitted the week prior to her biopsy with cyclical nausea and vomiting. She had been on a narcotic taper per her primary care physician, which has been put on hold because of her postprocedural pain needs. She denies fevers or chills. Her appetite has been slightly diminished. Because of a symptom persistence she presented to the emergency room today for further assessment. PAST MEDICAL HISTORY: Cyclical vomiting syndrome, autoimmune hepatitis, anxiety , and depression. PAST SURGICAL HISTORY: Laparoscopic cholecystectomy. MEDICATIONS: Percocet, prednisone. ALLERGIES: Reglan, Compazine. SOCIAL HISTORY: Denies current alcohol or tobacco. REVIEW OF SYSTEMS: Notable for chronic abdominal pain, cyclical vomiting syndrome. FAMILY HISTORY: Noncontributory. PHYSICAL EXAMINATION: VITAL SIGNS: Temperature 36.9, blood pressure 117/70, pulse 81, respirations 16. GENERAL: The patient is alert, appropriate, comfortable upon room entrance. HEENT: Anicteric. NECK: No cervical lymphadenopathy. HEART: Regular. LUNGS: Clear. ABDOMEN: Soft, nondistended. Mild diffuse epigastric as well as a right upper quadrant and right lower quadrant tenderness. Mildly distractible tenderness. No rebound. EXTREMITIES: Unremarkable. LABORATORIES: Unremarkable. White count 13, hemoglobin 13, platelets of 333. Electrolytes within reference range. Alkaline phosphatase 256, AST 17, ALT 31, total bilirubin 1.1. Lipase 42. CT abdomen pelvis, images directly reviewed on PACS. Mild periappendiceal free fluid tracking along the right pericolic gutter. Minimal left lower quadrant and pelvic fluid. No free air. Notable peritoneal enhancement. Hounsfield units approximately 20. IMPRESSION: Acute on chronic abdominal pain status post image guided liver biopsy with new small volume ascites and peritoneal enhancement. These findings are consistent with either bile peritonitis post biopsy or possibly related to blood irritation. Her images were from [facility] were reviewed, which were normal on the . It is unlikely that she has an ongoing bile leak 2 weeks postop given the small volume fluid in her abdominal cavity. Recommend supportive care measures with oral analgesics and anti-inflammatory medicines. Care plan was reviewed with Dr. Harvey, as well as with her primary care physician via telephone, who will follow up with her later this week in clinic. No further surgical recommendations warranted at this time. /[id number]/MODL MTDD
== END 2017-06-10 19:44 | disposition home or self-care (01) ==
DX: R10.84 Generalized abdominal pain (principal); E86.9 Volume depletion, unspecified; Z90.49 Acquired absence of other specified parts of digestive tract
CPT/HCPCS: 96374; J1170; J1885; J2405; Q9967

== ENCOUNTER 2017-08-04 07:21 | Inpatient (IN) | payer MEDICAID ==
[2017-08-04] MEDS ORDERED: LORazepam 2 MG/ML INJ IVP ONE ×3 (07:40→11:20)
[2017-08-04] MEDS ORDERED: ONDANSETRON 4 MG/2 ML VIAL IVP ONE ×3 (07:40→09:12)
[2017-08-04] MEDS ORDERED: NS 1,000 ML IV ONE ×2 (07:40→09:18)
--- NOTE | 2017-08-04 07:44 | EDPHY ---
H & P Time Seen by Provider: 08/04/17 07:32 HPI/ROS: CHIEF COMPLAINT: Nausea and vomiting HISTORY OF PRESENT ILLNESS: Patient has a history of autoimmune hepatitis and previous admission to our hospital for cyclic vomiting syndrome. She usually takes Zofran and Ativan but has been having nausea and vomiting since Saturday. She thinks she is worse she was prescribed oral budesonide by her glass etcher starting on July 25 of this year. Patient states her nausea and vomiting is severe. Not associated with diarrhea. It is associated with some right upper quadrant pain that radiates a little bit to her back. No fever, no urinary symptoms, no vaginal bleeding or discharge, denies . Says her symptoms today are severe. Not better worse with anything including her usual medications. She does take oxycodone regularly but has been having trouble keeping that down. REVIEW OF SYSTEMS: Eye: no change in vision ENT: no sore throat Cardiac: no chest pain or syncope Pulmonary: no cough or SOB Abdomen: HPI Musculoskeletal: no back pain Skin: no rash Neuro: no headache Constitutional: no fever : no urinary symptoms A comprehensive 10 point review of systems is otherwise negative aside from elements mentioned in the history of present illness. PAST MEDICAL HISTORY: Previous ED visit dated 06/10/[address] Medrano is consultation note reviewed. Includes cyclic vomiting syndrome, autoimmune hepatitis, anxiety, depression, laparoscopic cholecystectomy. 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 Social history: Denies alcohol, driven here by her mother today. General Appearance: Alert and conversant, cooperative. Eyes: No scleral icterus. ENT, Mouth: Slightly dry mucous membranes. Respiratory: Normal respiratory effort, breath sounds equal, lungs are clear to auscultation. Cardiovascular: Regular rate and rhythm. Gastrointestinal: Mild lower quadrant tenderness but without any rebound or guarding, bowel sounds present. Neurological: Alert and oriented x3. Normally conversant. Face symmetric, normal movement and sensation in all extremities. Skin: Warm and dry, no rashes. Musculoskeletal: No peripheral edema and no joint swelling. Psychiatric: Not agitated. Emergency Department course/MDM: Zofran 8 mg IV and Ativan 1 mg IV. She has not had any procedures since her previous ED visit. She does not have a physical exam to suggest that surgical abdominal process is likely. 927: Labs reviewed, normal white blood cell count electrolytes and liver function tests. Patient received 0.5 mg IV Dilaudid for pain. Plan for IV hydration and antiemetics and discharge. Labs discussed with the patient at this time, plan for 2nd L IV normal saline; no active vomiting at this time. 1120: Re-evaluated, still has nausea. Dexamethasone discussed and consented. Additional IV Ativan. Plan for decision at noon. 1210: Still having nausea and vomiting, plan to admit for symptoms. Smoking Status: Never smoked Constitutional: Initial Vital Signs Temperature (C) 37.2 C 08/04/17 07:27 Heart Rate 108 H 08/04/17 07:27 Respiratory Rate 16 08/04/17 07:27 Blood Pressure 115/77 08/04/17 07:27 O2 Sat (%) 98 08/04/17 07:27 O2 Delivery Mode Room Air Allergies/Adverse Reactions: metoclopramide HCl [From Reglan] Allergy (Unknown, Verified 06/04/17 10:26) prochlorperazine edisylate [From Compazine] Allergy (Unknown, Verified 06/04/17 10:26) prochlorperazine maleate [From Compazine] Allergy (Unknown, Verified 06/04/17 10 :26) promethazine HCl [From Phenergan] Allergy (Unknown, Verified 06/04/17 10:26) Home Medications: Medication Instructions Recorded Ondansetron HCl [Zofran] 8 mg PO Q8 PRN 05/19/17 Budesonide 08/04/17 Oxycodone HCl 08/04/17 Prozac 10 MG (*) 08/04/17 Medical Decision Making Differential Diagnosis: Differential considered including but not limited to hepatitis, gastroenteritis , medication related, bowel obstruction, appendicitis, . Consult/Admit Bed Type: [place] [id number] - Data Points Laboratory Results: Laboratory Results 08/04/17 09:00 08/04/17 09:00 08/04/17 08/04/17 08/04/17 09:00 09:00 09:00 WBC 8.57 10^3/uL 10^3/uL (3.80-9.50) RBC 4.94 10^6/uL 10^6/uL (4.18-5.33) Hgb 14.5 g/dL g/dL (12.6-16.3) Hct 43.1 % % (38.0-47.0) MCV 87.2 fL fL (81.5-99.8) MCH 29.4 pg pg (27.9-34.1) MCHC 33.6 g/dL g/dL (32.4-36.7) RDW 13.5 % % (11.5-15.2) Plt Count 251 10^3/uL 10^3/uL (150-400) MPV 10.9 fL fL (8.7-11.7) Neut % (Auto) 69.4 % % (39.3-74.2) Lymph % (Auto) 21.1 % % (15.0-45.0) Haskell % (Auto) 8.1 % % (4.5-13.0) Eos % (Auto) 0.4 % L % (0.6-7.6) Baso % (Auto) 0.4 % % (0.3-1.7) Nucleat RBC Rel Count 0.0 % % (0.0-0.2) Absolute Neuts (auto) 5.96 10^3/uL 10^3/uL (1.70-6.50) Absolute Lymphs (auto) 1.81 10^3/uL 10^3/uL (1.00-3.00) Absolute Monos (auto) 0.69 10^3/uL 10^3/uL (0.30-0.80) Absolute Eos (auto) 0.03 10^3/uL 10^3/uL (0.03-0.40) Absolute Basos (auto) 0.03 10^3/uL 10^3/uL (0.02-0.10) Absolute Nucleated RBC 0.00 10^3/uL 10^3/uL (0-0.01) Immature Gran % 0.6 % % (0.0-1.1) Immature Gran # 0.05 10^3/uL 10^3/uL (0.00-0.10) Sodium 141 mEq/L mEq/L (134-144) Potassium 3.6 mEq/L mEq/L (3.5-5.2) Chloride 106 mEq/L mEq/L (97-110) Carbon Dioxide 22 mEq/l mEq/l (22-31) Anion Gap 13 mEq/L mEq/L (8-16) BUN 14 mg/dL mg/dL (7-23) Creatinine 0.8 mg/dL mg/dL (0.6-1.0) Estimated GFR > 60 Glucose 89 mg/dL mg/dL (70-100) Calcium 9.2 mg/dL mg/dL (8.5-10.4) Total Bilirubin 0.3 mg/dL mg/dL (0.1-1.4) Conjugated Bilirubin 0.0 mg/dL mg/dL (0.0-0.5) Unconjugated Bilirubin 0.3 mg/dL mg/dL (0.0-1.1) AST 21 IU/L IU/L (14-46) ALT 29 IU/L IU/L (9-52) Alkaline Phosphatase 96 IU/L IU/L (38-126) Total Protein 6.5 g/dL g/dL (6.3-8.2) Albumin 4.0 g/dL g/dL (3.5-5.0) Lipase 78 IU/L IU/L (23-300) Beta HCG, Qual NEGATIVE Medications Given: Discontinued Medications Dexamethasone (Decadron Injection) 10 mg IVP EDNOW ONE Stop: 08/04/17 11:21 Last Admin: 08/04/17 11:35 Dose: 10 mg Hydromorphone HCl (Dilaudid) 0.5 mg IVP EDNOW ONE Stop: 08/04/17 09:10 Last Admin: 08/04/17 09:10 Dose: 0.5 mg Sodium Chloride (Ns) 1,000 mls @ 0 mls/hr IV EDNOW ONE; Wide Open PRN Reason: Protocol Stop: 08/04/17 07:41 Last Admin: 08/04/17 07:52 Dose: 1,000 mls Sodium Chloride (Ns) 1,000 mls @ 0 mls/hr IV EDNOW ONE; Wide Open PRN Reason: Protocol Stop: 08/04/17 09:19 Last Admin: 08/04/17 09:32 Dose: 1,000 mls Lorazepam (Ativan Injection) 1 mg IVP EDNOW ONE Stop: 08/04/17 07:41 Last Admin: 08/04/17 07:59 Dose: 1 mg Lorazepam (Ativan Injection) 1 mg IVP EDNOW ONE Stop: 08/04/17 10:36 Last Admin: 08/04/17 10:40 Dose: 1 mg Lorazepam (Ativan Injection) 1 mg IVP EDNOW ONE Stop: 08/04/17 11:21 Last Admin: 08/04/17 11:35 Dose: 1 mg Ondansetron HCl (Zofran) 4 mg IVP EDNOW ONE Stop: 08/04/17 07:41 Last Admin: 08/04/17 07:59 Dose: 4 mg Ondansetron HCl (Zofran) 4 mg IVP EDNOW ONE Stop: 08/04/17 07:42 Last Admin: 08/04/17 07:59 Dose: 4 mg Ondansetron HCl (Zofran) 4 mg IVP EDNOW ONE Stop: 08/04/17 09:13 Last Admin: 08/04/17 09:14 Dose: 4 mg Departure - Departure Disposition: [facility] Inpatient Acute Clinical Impression: Nausea & vomiting Qualifiers: Vomiting type: unspecified Vomiting Intractability: intractable Qualified Code( s): R11.2 - Nausea with vomiting, unspecified Condition: Good Instructions: Acute Nausea and Vomiting (ED) Referrals: Forrest Joseph MD [Primary Care Provider] - As per Instructions
[2017-08-04] MEDS ORDERED: HYDROmorphONE/DILAUDID 1 MG/ML INJ ONE (09:08)
[2017-08-04] MEDS ORDERED: HYDROmorphONE/DILAUDID 1 MG/ML INJ IVP ONE (09:09)
[2017-08-04 09:10] LABS: % IMMATURE GRANULYOCYTES 0.6 % (0.0-1.1); ABSOLUTE IMMATURE GRANULOCYTES 0.05 10^3/uL (0.00-0.10); ADD DIFF? NO; ADD MORPH? NO; ADD SCAN? NO; ATYPICAL LYMPHOCYTE FLAG 10 (0-99); FRAGMENT RBC FLAG 0 (0-99); HEMATOCRIT 43.1 % (38.0-47.0); HEMOGLOBIN 14.5 g/dL (12.6-16.3); LEFT SHIFT FLG 0 (0-99); LIPEMIA HEMOLYSIS FLAG 80 (0-99); MEAN CELL HEMOGLOBIN 29.4 pg (27.9-34.1); MEAN CELL HEMOGLOBIN CONCENTR. 33.6 g/dL (32.4-36.7); MEAN CELL VOLUME 87.2 fL (81.5-99.8); MEAN PLATELET VOLUME 10.9 fL (8.7-11.7); PLATELET CLUMPS FLAG 0 (0-99); PLATELET COUNT 251 10^3/uL (150-400); RED BLOOD CELL COUNT 4.94 10^6/uL (4.18-5.33); RED CELL DISTRIBUTION WIDTH 13.5 % (11.5-15.2)
[2017-08-04 09:21] LABS: ALANINE AMINOTRANSFERASE 29 IU/L (9-52); ALKALINE PHOSPHATASE 96 IU/L (38-126); ANION GAP 13 mEq/L (8-16); ASPARTATE AMINOTRANSFERASE 21 IU/L (14-46); BILIRUBIN,TOTAL 0.3 mg/dL (0.1-1.4); BILIRUBIN-UNCONJUGATED 0.3 mg/dL (0.0-1.1); CALCIUM 9.2 mg/dL (8.5-10.4); CARBON DIOXIDE 22 mEq/l (22-31); CHLORIDE 106 mEq/L (97-110); CREATININE 0.8 mg/dL (0.6-1.0); GLOMERULAR FILTRATION RATE > 60; GLUCOSE 89 mg/dL (70-100); POTASSIUM 3.6 mEq/L (3.5-5.2); SODIUM 141 mEq/L (134-144); TOTAL PROTEIN 6.5 g/dL (6.3-8.2)
[2017-08-04] MEDS ORDERED: DEXAMETHASONE 10 MG/ML VIAL IVP ONE (11:20)
[2017-08-04] MEDS ORDERED: diphenhydrAMINE 25 MG CAP PO PRN (13:14)
[2017-08-04] MEDS ORDERED: NON-FORMULARY NEW DRUG (Ondansetron [Zofran Odt] 8 MG) PO PRN (13:14)
[2017-08-04] MEDS ORDERED: ONDANSETRON DISINTEGRATING 4 MG TAB PO PRN ×2 (13:22→13:37)
[2017-08-04] MEDS ORDERED: ACETAMINOPHEN 325 MG TAB PO PRN (13:37)
[2017-08-04] MEDS ORDERED: PROTOCOL POTASSIUM 1 DOSE MISC PRN (13:42)
[2017-08-04] MEDS ORDERED: PROTOCOL MAGNESIUM 1 DOSE IV PRN (13:42)
[2017-08-04] MEDS ORDERED: NS W/ 20 KCl/L 1,000 ML IV SCH (13:45)
--- NOTE | 2017-08-04 13:50 | PDGENHP ---
History and Physical - Chief Complaint nausea and vomiting - History of Present Illness 36 yo F with a history of cyclic vomiting and autoimmune hepatitis presents with 3 days hx of intractable vomiting and nausea. Very little PO intake. + RUQ abd pain, radiating to her back. No constipation or diarrhea. Had a normal BM yesterday. No urinary sx's. Negative Hcg. In the ED she has received IVF, pain mgmt, and Benzo with some improvement although she does not feed well enough to go home. She sees a GI at [facility] and her name is Dr. Rowe. She recently prescribed budesonide and the pt feels that her issues may be related to taking this. 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 PAST SURGICAL HISTORY: Lap Brenda Social history: Denies alcohol, denies tobacco , denies illicits Studies: CBC/CMP unremarkable, Lipase unremarkable History Information - Allergies/Home Medication List Allergies/Adverse Reactions: metoclopramide HCl [From Reglan] Allergy (Unknown, Verified 08/04/17 12:30) dyskinesias prochlorperazine edisylate [From Compazine] Allergy (Unknown, Verified 08/04/17 12:30) dyskinesias prochlorperazine maleate [From Compazine] Allergy (Unknown, Verified 08/04/17 12 :30) dyskinesias promethazine HCl [From Phenergan] Allergy (Unknown, Verified 08/04/17 12:30) dyskinesias Home Medications: Budesonide [Budesonide EC] 9 mg PO DAILY 08/04/17 [Last Taken 08/02/17] FLUoxetine [Prozac 10 MG (*)] 10 mg PO DAILY 08/04/17 [Last Taken 08/02/17] Ibuprofen [Motrin (*)] 200 - 400 mg PO Q6H PRN 08/04/17 [Last Taken Unknown] LORazepam [Ativan (*)] 1 mg PO DAILY PRN 08/04/17 [Last Taken Unknown] Ondansetron [Zofran Odt] 8 mg PO Q8H PRN 08/04/17 [Last Taken 08/03/17] diphenhydrAMINE [Benadryl 25 MG (*)] 25 - 50 mg PO Q4H PRN 08/04/17 [Last Taken Unknown] fentaNYL [Duragesic 50 MCG Patch (*)] 50 mcg TD Q72H PRN 08/04/17 [Last Taken Unknown] oxyCODONE HCL [Oxycontin] 40 mg PO BID 08/04/17 [Last Taken 08/03/17] oxyCODONE IR [Oxycodone Ir (*)] 10 mg PO Q4H PRN 08/04/17 [Last Taken 08/02/17] I have personally reviewed and updated: medical history, social history, surgical history - Social History Smoking Status: Never smoked Review of Systems Review of Systems: ROS: 10pt was reviewed & negative except for what was stated in HPI & below Constitutional: Reports: fever. Denies: diaphoresis Physical Exam Physical Exam: Temp Pulse Resp BP Pulse Ox 36.8 C 96 18 115/70 96 08/04/17 12:39 08/04/17 12:39 08/04/17 12:39 08/04/17 12:39 08/04/17 12:39 Constitutional: no apparent distress, appears nourished Eyes: PERRL, EOMI Ears, Nose, Mouth, Throat: hearing normal, dry mucous membranes Cardiovascular: regular rate and rhythym, No edema Respiratory: no respiratory distress, no rales or rhonchi, clear to auscultation Gastrointestinal: normoactive bowel sounds, tenderness (mild generalized TTP) Skin: warm Neurologic: AAOx3 Psychiatric: interacting appropriately, not anxious, not encephalopathic Lab Data & Imaging Review 08/04/17 09:00 08/04/17 09:00 WBC 8.57 10^3/uL (3.80-9.50) 08/04/17 09:00 RBC 4.94 10^6/uL (4.18-5.33) 08/04/17 09:00 Hgb 14.5 g/dL (12.6-16.3) 08/04/17 09:00 Hct 43.1 % (38.0-47.0) 08/04/17 09:00 MCV 87.2 fL (81.5-99.8) 08/04/17 09:00 MCH 29.4 pg (27.9-34.1) 08/04/17 09:00 MCHC 33.6 g/dL (32.4-36.7) 08/04/17 09:00 RDW 13.5 % (11.5-15.2) 08/04/17 09:00 Plt Count 251 10^3/uL (150-400) 08/04/17 09:00 MPV 10.9 fL (8.7-11.7) 08/04/17 09:00 Neut % (Auto) 69.4 % (39.3-74.2) 08/04/17 09:00 Lymph % (Auto) 21.1 % (15.0-45.0) 08/04/17 09:00 Sanders % (Auto) 8.1 % (4.5-13.0) 08/04/17 09:00 Eos % (Auto) 0.4 % (0.6-7.6) L 08/04/17 09:00 Baso % (Auto) 0.4 % (0.3-1.7) 08/04/17 09:00 Nucleat RBC Rel Count 0.0 % (0.0-0.2) 08/04/17 09:00 Absolute Neuts (auto) 5.96 10^3/uL (1.70-6.50) 08/04/17 09:00 Absolute Lymphs (auto) 1.81 10^3/uL (1.00-3.00) 08/04/17 09:00 Absolute Monos (auto) 0.69 10^3/uL (0.30-0.80) 08/04/17 09:00 Absolute Eos (auto) 0.03 10^3/uL (0.03-0.40) 08/04/17 09:00 Absolute Basos (auto) 0.03 10^3/uL (0.02-0.10) 08/04/17 09:00 Absolute Nucleated RBC 0.00 10^3/uL (0-0.01) 08/04/17 09:00 Immature Gran % 0.6 % (0.0-1.1) 08/04/17 09:00 Immature Gran # 0.05 10^3/uL (0.00-0.10) 08/04/17 09:00 Sodium 141 mEq/L (134-144) 08/04/17 09:00 Potassium 3.6 mEq/L (3.5-5.2) 08/04/17 09:00 Chloride 106 mEq/L (97-110) 08/04/17 09:00 Carbon Dioxide 22 mEq/l (22-31) 08/04/17 09:00 Anion Gap 13 mEq/L (8-16) 08/04/17 09:00 BUN 14 mg/dL (7-23) 08/04/17 09:00 Creatinine 0.8 mg/dL (0.6-1.0) 08/04/17 09:00 Estimated GFR > 60 08/04/17 09:00 Glucose 89 mg/dL (70-100) 08/04/17 09:00 Calcium 9.2 mg/dL (8.5-10.4) 08/04/17 09:00 Total Bilirubin 0.3 mg/dL (0.1-1.4) 08/04/17 09:00 Conjugated Bilirubin 0.0 mg/dL (0.0-0.5) 08/04/17 09:00 Unconjugated Bilirubin 0.3 mg/dL (0.0-1.1) 08/04/17 09:00 AST 21 IU/L (14-46) 08/04/17 09:00 ALT 29 IU/L (9-52) 08/04/17 09:00 Alkaline Phosphatase 96 IU/L (38-126) 08/04/17 09:00 Total Protein 6.5 g/dL (6.3-8.2) 08/04/17 09:00 Albumin 4.0 g/dL (3.5-5.0) 08/04/17 09:00 Lipase 78 IU/L (23-300) 08/04/17 09:00 Beta HCG, Qual NEGATIVE 08/04/17 09:00 Assessment & Plan Assessment: #Nausea and Vomiting in a pt with cyclic vomiting #Dehydration #Hx of GERD #Abd pain #chronic pain syndrome Plan: -observation -IVF -IV Pain meds -IV benzo's -IV PPI -Antiemetics -Hold PO Budesonide -SCD's -Full Code Anticipate d/c soon
[2017-08-04] MEDS: ONDANSETRON 4 MG/2 ML VIAL IVP PRN ×3 (14:26→22:54)
[2017-08-04] MEDS: LORazepam 2 MG/ML INJ IVP PRN ×3 (14:30→22:54)
[2017-08-04] MEDS: HYDROmorphONE/DILAUDID 1 MG/ML INJ IVP PRN ×4 (14:33→21:10)
[2017-08-04] MEDS: PANTOPRAZOLE SODIUM 40 MG VIAL IVP SCH ×2 (14:36→21:10)
--- NOTE | 2017-08-04 16:02 | ASMTCMCOM ---
CM Note CM Note Notes: Chart reviewed.Pt 36 year old female with intractable N/V and chronic pain. Anticipate she will have no needs at discharge as she lives independently. CM available to follow should need arise. Date Signed: 08/04/2017 04:02 PM Electronically Signed By:Elana Bahena RN
[2017-08-04] MEDS: fentaNYL 50 MCG PATCH TD SCH (16:07)
[2017-08-04 18:44] LABS: POTASSIUM 4.1 mEq/L (3.5-5.2)
[2017-08-04] MEDS ORDERED: ZOLPIDEM TARTRATE 5 MG TAB PO ONE (21:00)
[2017-08-04] MEDS: NICOTINE 21 MG/24 HR PATCH TD SCH (21:10)
[2017-08-05] MEDS: ONDANSETRON 4 MG/2 ML VIAL IVP PRN ×3 (03:10→16:30)
[2017-08-05] MEDS: LORazepam 2 MG/ML INJ IVP PRN ×4 (03:10→21:10)
[2017-08-05] MEDS: HYDROmorphONE/DILAUDID 1 MG/ML INJ IVP PRN ×2 (03:11→10:41)
[2017-08-05 05:23] LABS: % IMMATURE GRANULYOCYTES 0.8 % (0.0-1.1); ABSOLUTE IMMATURE GRANULOCYTES 0.16 10^3/uL (0.00-0.10); ADD DIFF? NO; ADD MORPH? NO; ADD SCAN? NO; ATYPICAL LYMPHOCYTE FLAG 0 (0-99); FRAGMENT RBC FLAG 0 (0-99); HEMATOCRIT 34.7 % (38.0-47.0); HEMOGLOBIN 11.7 g/dL (12.6-16.3); LEFT SHIFT FLG 0 (0-99); LIPEMIA HEMOLYSIS FLAG 80 (0-99); MEAN CELL HEMOGLOBIN 29.8 pg (27.9-34.1); MEAN CELL HEMOGLOBIN CONCENTR. 33.7 g/dL (32.4-36.7); MEAN CELL VOLUME 88.5 fL (81.5-99.8); MEAN PLATELET VOLUME 10.8 fL (8.7-11.7); PLATELET CLUMPS FLAG 0 (0-99); PLATELET COUNT 225 10^3/uL (150-400); RED BLOOD CELL COUNT 3.92 10^6/uL (4.18-5.33); RED CELL DISTRIBUTION WIDTH 13.7 % (11.5-15.2)
[2017-08-05 05:40] LABS: ANION GAP 9 mEq/L (8-16); CALCIUM 8.8 mg/dL (8.5-10.4); CARBON DIOXIDE 21 mEq/l (22-31); CHLORIDE 108 mEq/L (97-110); CREATININE 0.7 mg/dL (0.6-1.0); GLOMERULAR FILTRATION RATE > 60; GLUCOSE 95 mg/dL (70-100); POTASSIUM 3.7 mEq/L (3.5-5.2); SODIUM 138 mEq/L (134-144)
[2017-08-05] MEDS: PANTOPRAZOLE SODIUM 40 MG VIAL IVP SCH ×2 (08:19→21:10)
[2017-08-05] MEDS: NICOTINE 21 MG/24 HR PATCH TD SCH (08:25)
[2017-08-05] MEDS: FLUoxetine 10 MG CAP PO SCH (08:27)
--- NOTE | 2017-08-05 10:56 | HOSPPROG ---
Hospitalist Progress Note Assessment/Plan: Assessment: 36 y/o female new to my care 08/05/17 with history of autoimmune hepatitis, chronic abdominal pain, and CVS presents with #intractable Nausea and Vomiting unclear cause has had previous negative workups likely related to stress and possible opiate withdrawal in the setting of not being able to tolerate po oxycodone -cont supportive care -wean iv narcotics and transition back to usual po home meds -will start low dose amitriptyline TCA #possible opiate withdrawal -resume duragesic patch -taper iv dialudid continue with outpatient taper #Dehydration #Hx of GERD #Abd pain #chronic pain syndrome dispo: still not able to tolerate Pos will change to inpatient status. Advance diet Subjective: continues to have 7/10 rt sided epigastric pain radiates to back. reports dry heaves all last night. not tolerating pos. req iv dilaudid every few hours. Objective: Vital Signs Temp Pulse Resp BP Pulse Ox 36.7 C 101 H 18 113/65 95 08/05/17 09:06 08/05/17 09:06 08/05/17 09:06 08/05/17 09:06 08/05/17 09:06 Laboratory Results 08/05/17 05:14 08/05/17 05:14 08/04/17 08/05/17 08/06/17 05:59 05:59 05:59 Intake Total 4692 Output Total 50 Balance 4642 - Physical Exam Constitutional: no apparent distress Ears, Nose, Mouth, Throat: moist mucous membranes Cardiovascular: regular rate and rhythym Respiratory: no respiratory distress, no rales or rhonchi, clear to auscultation Gastrointestinal: normoactive bowel sounds, tenderness (epigastric and ruq), No guarding, No rebound ICD10 Worksheet Patient Problems: Problems Problem Status Onset Nausea & vomiting Acute Abdominal pain Acute Altered mental status, unspecified Acute Intractable nausea and vomiting Acute SIRS (systemic inflammatory response syndrome) Acute
--- NOTE | 2017-08-05 12:16 | PDMN ---
Medical Necessity Medical necessity: change to IP; los>2mn for intractable N/V of unclear etiology , likely r/t stress and possible opiate withdrawal r/t inability to tolerate oxycodone, and dehydration; requires continued supportive care, wean IV narcotics, resume duragesic patch, and advance diet; comorbid autoimmune hepatitis and chronic abd pain, CVS; per order and progress note 08/05/17
[2017-08-05] MEDS: fentaNYL 50 MCG PATCH TD SCH (13:58)
[2017-08-05] MEDS: HYDROmorphone HCL/NS/PF 0.4 MG/2 ML SYR IVP PRN (14:15)
[2017-08-05] MEDS: NICOTINE POLACRILEX 2 MG GUM B PRN ×2 (16:30→21:26)
[2017-08-05] MEDS ORDERED: POTASSIUM Cl (KCl) 100 ML IV SCH (18:15)
[2017-08-05 18:50] LABS: POTASSIUM 3.5 mEq/L (3.5-5.2)
[2017-08-05] MEDS ORDERED: AMITRIPTYLINE HCL 10 MG TAB PO SCH (21:00)
[2017-08-05] MEDS: POTASSIUM Cl (KCl) 10 MEQ in NS 100 ML IV SCH ×2 (21:10→22:26)
[2017-08-05] MEDS: oxyCODONE IR 5 MG TAB PO PRN (22:30)
[2017-08-06] MEDS: LORazepam 2 MG/ML INJ IVP PRN ×3 (06:13→14:39)
[2017-08-06] MEDS: HYDROmorphone HCL/NS/PF 0.4 MG/2 ML SYR IVP PRN (06:13)
[2017-08-06 06:16] LABS: MAGNESIUM 2.1 mg/dL (1.6-2.3); POTASSIUM 3.6 mEq/L (3.5-5.2)
[2017-08-06 08:53] VITALS: BP 115/75; PULSE 89; RESP 18; TEMP 98.4; O2SAT 94
[2017-08-06] MEDS: NICOTINE POLACRILEX 2 MG GUM B PRN ×5 (09:17→14:39)
[2017-08-06] MEDS: FLUoxetine 10 MG CAP PO SCH (09:17)
[2017-08-06] MEDS: NICOTINE 21 MG/24 HR PATCH TD SCH (09:23)
[2017-08-06] MEDS: PANTOPRAZOLE SODIUM 40 MG VIAL IVP SCH (09:24)
[2017-08-06] MEDS: oxyCODONE IR 5 MG TAB PO PRN ×2 (10:23→14:38)
[2017-08-06] MEDS: ONDANSETRON 4 MG/2 ML VIAL IVP PRN ×2 (10:24→14:39)
--- NOTE | 2017-08-06 13:47 | ASMTCMCOM ---
CM Note CM Note Notes: Patient discharging home around 1500 transported by a friend. No additional Case management needs apparent at this time. Date Signed: 08/06/2017 01:46 PM Electronically Signed By:BERNIE George
--- NOTE | 2017-08-06 22:02 | GDS ---
[f rep st] DISCHARGE SUMMARY DISCHARGE DIAGNOSES: 1. Resolved intractable nausea and vomiting. 2. History of chronic abdominal pain and cyclic vomiting syndrome. 3. Possible opiate withdrawal. 4. Dehydration. 5. History of gastroesophageal reflux disease. 6. Chronic dependence. HOSPITAL COURSE AND STAY BY PROBLEM: Intractable nausea and vomiting: The patient presented to the hospital on 08/04/2017 with nausea and vomiting. She had been on oxycodone for chronic abdominal tiffani n, which she had not been able to tolerate for the past few days due to nausea vomiting. Prior to th is episode, she had been started on budesonide by her content development manager, which the patient thinks ma y have triggered this episode. Her budesonide was held. Throughout the patient's stay, she was treated supportively with IV fluids, antiemetics, and IV Dilau did. On day of discharge, she is tolerating a diet and is no longer requiring IV pain medications. I did discuss trying to taper narcotics with her, which the patient is in agreement with. Will also try discharging her on amitriptyline to help with her cycles of her cyclic vomiting. PHYSICAL EXAMINATION: VITAL SIGNS: On day of discharge, blood pressure 115/75, pulse of 89, respira tory rate 18, O2 saturation 94% on room air. GENERAL: No acute distress. ABDOMEN: Soft, nontender , nondistended. No guarding or rebound tenderness. Normoactive bowel sounds. PERTINENT LABS AND STUDIES DONE THIS HOSPITAL STAY: None. DISCHARGE MEDICATIONS: Please refer to discharge medication reconciliation in [facility] for full deta ils. Below is a preliminary list. New medications on hospital discharge. Amitriptyline 10 mg p.o. at bedtime. DISCHARGE INSTRUCTIONS: The patient will be discharged home where she should follow up with her [facility] roenterologist, Dr. Rowe, to further discuss budesonide. She should also follow up with her [facility] provider about possibly increasing the dose of Elavil to see if this helps prevent her cycl ic vomiting episodes. /[id number]/MODL
--- NOTE | 2017-08-07 09:22 | ASDISCHSUM ---
Discharge Information Plan Status: Medically Cleared to Leave: Discharge Date:08/06/2017 03:55 PM CM D/C Disposition: ADT D/C Disposition:Home, Routine, Self-Care Projected Discharge Date:08/06/2017 03:55 PM Transportation at D/C: Discharge Delay Reason: Follow-Up Date:08/06/2017 03:55 PM Discharge Slot: Final Diagnosis: Placement Information Patient Contact Information Contact Name:BONITA Relationship:Mother Address:[address] [place] [address] [address] City:[place] Alternate Phone: [facility] Code:[place] [address] Email: Financial Information Financial Class: Primary Plan Desc:[employer] [place] Primary Plan Number:[id number] Secondary Plan Desc: Secondary Plan Number: Assessment Information LACE LACE Acuity / Level of Care Answers: Was the patient admitted to hospital via the emergency department? Yes: Comorbidities - select Answers: Mild liver or renal all that apply disease Emergency dept visits in Answers: 4+ last 6 months Score: 9 Date Signed: 08/04/2017 03:32 PM Electronically Signed By:Christina Ruiz RN [facility] CM Progress Note CM Note CM Note Notes: Chart reviewed.Pt 36 year old female with intractable N/V and chronic pain. Anticipate she will have no needs at discharge as she lives independently. CM available to follow should need arise. Date Signed: 08/04/2017 04:02 PM Electronically Signed By:Elana Bahena RN [facility] CM Progress Note CM Note CM Note Notes: Patient discharging home around 1500 transported by a friend. No additional Case management needs apparent at this time. Date Signed: 08/06/2017 01:46 PM Electronically Signed By:BERNIE George Intervention Information
== END 2017-08-06 15:55 | disposition home or self-care (01) | DRG 392 ==
LOC: F1N 12:36 → OBSVTOIN 08-05 11:24
PROVIDERS: ADMIT Family Medicine; ATTEND Family Medicine
DX: R11.2 Nausea with vomiting, unspecified (principal); R10.11 Right upper quadrant pain; F11.23 Opioid dependence with withdrawal; E86.0 Dehydration; K21.9 Gastro-esophageal reflux disease without esophagitis; G89.29 Other chronic pain; Z86.718 Personal history of other venous thrombosis and embolism
CPT/HCPCS: 96374; G0378; J1100; J1170; J2060; J2405

== ENCOUNTER 2017-08-21 14:00 | Inpatient (IN) | payer MEDICAID ==
[2017-08-21] MEDS ORDERED: NS 1,000 ML IV ONE (14:36)
--- NOTE | 2017-08-21 14:56 | EDPHY ---
H & P Stated Complaint: N and V since Saturday, saw PCP today got IVF and Zofran, referred here Time Seen by Provider: 08/21/17 14:55 HPI/ROS: CHIEF COMPLAINT: Abdominal pain, intractable vomiting HISTORY OF PRESENT ILLNESS: The patient has a history of chronic abdominal pain from history of autoimmune hepatitis. She presents to the ED with intractable vomiting for the past several days. The patient reports she has been unable to keep down her oxycodone and OxyContin. She has been using Zofran at home without improvement. She denies marijuana use. The patient takes Prozac and Zofran in addition to her chronic pain medications. The patient denies any fever or cough. She has had a chronic sinus infection. The patient denies acute dysuria. REVIEW OF SYSTEMS: A comprehensive 10 point review of systems is otherwise negative aside from elements mentioned in the history of present illness. Source: Patient Exam Limitations: No limitations - Personal History LMP (Females 10-55): 15-21 Days Ago Current Tetanus/Diphtheria Vaccine: Yes Tetanus Vaccine Date: < 10 YEARS - Medical/Surgical History Hx Asthma: No Hx Chronic Respiratory Disease: No Hx Diabetes: No Hx Cardiac Disease: No Hx Renal Disease: No Hx Cirrhosis: Yes Hx Alcoholism: No Hx HIV/AIDS: No Hx Splenectomy or Spleen Trauma: No Other PMH: auto immune hepatitis, cholelithiasis, GERD,lemers syndrome - Social History Smoking Status: Never smoked - Physical Exam Exam: General Appearance: Alert, no distress Eyes: Pupils equal and round no pallor or injection ENT, Mouth: Mucous membranes moist Respiratory: There are no retractions, lungs are clear to auscultation Cardiovascular: Regular rate and rhythm Gastrointestinal: Minimal epigastric tenderness, minimal right upper quadrant tenderness, normal bowel sounds, no peritoneal signs Neurological: A&O, normal motor function, normal sensory exam, normal cranial nerves Skin: Warm and dry, no rashes Musculoskeletal: Neck is supple nontender Extremities: symmetrical, full range of motion Constitutional: Initial Vital Signs Temperature (C) 36.9 C 08/21/17 14:12 Heart Rate 106 H 08/21/17 14:12 Respiratory Rate 15 08/21/17 14:12 Blood Pressure 117/75 08/21/17 14:12 O2 Sat (%) 97 08/21/17 14:12 O2 Delivery Mode Room Air Allergies/Adverse Reactions: metoclopramide HCl [From Reglan] Allergy (Unknown, Verified 08/04/17 12:30) dyskinesias prochlorperazine edisylate [From Compazine] Allergy (Unknown, Verified 08/04/17 12:30) dyskinesias prochlorperazine maleate [From Compazine] Allergy (Unknown, Verified 08/04/17 12 :30) dyskinesias promethazine HCl [From Phenergan] Allergy (Unknown, Verified 08/04/17 12:30) dyskinesias Home Medications: Medication Instructions Recorded FLUoxetine [Prozac 10 MG (*)] 10 mg PO DAILY 08/04/17 Ibuprofen [Motrin (*)] 200 - 400 mg PO Q6H PRN 08/04/17 LORazepam [Ativan (*)] 1 mg PO DAILY PRN 08/04/17 Ondansetron [Zofran Odt] 8 mg PO Q8H PRN 08/04/17 diphenhydrAMINE [Benadryl 25 MG 25 - 50 mg PO Q4H PRN 08/04/17 (*)] fentaNYL [Duragesic 50 MCG Patch 50 mcg TD Q72H PRN 08/04/17 (*)] oxyCODONE HCL [Oxycontin] 40 mg PO BID 08/04/17 oxyCODONE IR [Oxycodone Ir (*)] 10 mg PO Q4H PRN 08/04/17 Amitriptyline HCl [Elavil 10 mg 10 mg PO HS #30 tab 08/06/17 (*)] Ondansetron Odt [Zofran Odt 4 mg 4 mg PO Q4HRS PRN #10 tab 08/06/17 (*)] Medical Decision Making ED Course/Re-evaluation: The patient presents to the ED with intractable vomiting. She has chronic abdominal pain from reported autoimmune hepatitis. The patient has had several ER visits and hospitalizations for uncontrolled abdominal pain and vomiting in the past. The patient had an IV established. She received a L of normal saline. She has multiple allergies to anti emetic medications. The patient received 2.5 mg of Haldol IV. She received 2 L of normal saline. The patient received 10 mg of oral Oxy IR. The patient's laboratory studies are reviewed. She has no evidence of significant leukocytosis, hepatitis, pancreatitis or metabolic abnormality. The patient vomited after receiving oral Oxy IR. She received 1 mg of IV Dilaudid, 50 mg of IV Benadryl and 1 mg of IV Ativan. The patient received ketamine for ongoing symptoms of pain and nausea. The patient received for serial examinations by myself in the ED over 5 hr period. She continues to have ongoing retching and pain. She will require admission to the hospital. Consultation is made with Dr. Ureña from the hospitalist service who will admit the patient. The remainder of the patient's laboratory studies demonstrate no evidence of hepatitis or pancreatitis. Differential Diagnosis: Differential diagnosis considered includes vomiting, dehydration, metabolic abnormality, narcotic withdrawal - Data Points Laboratory Results: Laboratory Results 08/21/17 14:35 08/21/17 14:35 08/21/17 08/21/17 08/21/17 16:20 14:35 14:35 WBC 11.96 10^3/uL H 10^3/uL (3.80-9.50) RBC 5.01 10^6/uL 10^6/uL (4.18-5.33) Hgb 14.7 g/dL g/dL (12.6-16.3) Hct 44.1 % % (38.0-47.0) MCV 88.0 fL fL (81.5-99.8) MCH 29.3 pg pg (27.9-34.1) MCHC 33.3 g/dL g/dL (32.4-36.7) RDW 13.9 % % (11.5-15.2) Plt Count 352 10^3/uL 10^3/uL (150-400) MPV 10.8 fL fL (8.7-11.7) Neut % (Auto) 67.0 % % (39.3-74.2) Lymph % (Auto) 25.4 % % (15.0-45.0) [place] % (Auto) 6.4 % % (4.5-13.0) Eos % (Auto) 0.4 % L % (0.6-7.6) Baso % (Auto) 0.4 % % (0.3-1.7) Nucleat RBC Rel Count 0.0 % % (0.0-0.2) Absolute Neuts (auto) 8.01 10^3/uL H 10^3/uL (1.70-6.50) Absolute Lymphs (auto) 3.04 10^3/uL H 10^3/uL (1.00-3.00) Absolute Monos (auto) 0.76 10^3/uL 10^3/uL (0.30-0.80) Absolute Eos (auto) 0.05 10^3/uL 10^3/uL (0.03-0.40) Absolute Basos (auto) 0.05 10^3/uL 10^3/uL (0.02-0.10) Absolute Nucleated RBC 0.00 10^3/uL 10^3/uL (0-0.01) Immature Gran % 0.4 % % (0.0-1.1) Immature Gran # 0.05 10^3/uL 10^3/uL (0.00-0.10) Sodium 145 mEq/L H mEq/L (134-144) Potassium 3.3 mEq/L L mEq/L (3.5-5.2) Chloride 109 mEq/L mEq/L (97-110) Carbon Dioxide 22 mEq/l mEq/l (22-31) Anion Gap 14 mEq/L mEq/L (8-16) BUN 8 mg/dL mg/dL (7-23) Creatinine 0.6 mg/dL mg/dL (0.6-1.0) Estimated GFR > 60 Glucose 91 mg/dL mg/dL (70-100) Calcium 9.6 mg/dL mg/dL (8.5-10.4) Total Bilirubin 0.3 mg/dL mg/dL (0.1-1.4) Conjugated Bilirubin 0.2 mg/dL mg/dL (0.0-0.5) Unconjugated Bilirubin 0.1 mg/dL mg/dL (0.0-1.1) AST 21 IU/L IU/L (14-46) ALT 55 IU/L H IU/L (9-52) Alkaline Phosphatase 133 IU/L H IU/L (38-126) Total Protein 7.1 g/dL g/dL (6.3-8.2) Albumin 4.0 g/dL g/dL (3.5-5.0) Lipase 70 IU/L IU/L (23-300) Urine Opiates Screen NEGATIVE (NEGATIVE) Urine Barbiturates NEGATIVE (NEGATIVE) Ur Phencyclidine Scrn NEGATIVE (NEGATIVE) Ur Amphetamine Screen NEGATIVE (NEGATIVE) U Benzodiazepines Scrn NON-NEGATIVE H (NEGATIVE) Urine Cocaine Screen NEGATIVE (NEGATIVE) U Marijuana (THC) Screen NEGATIVE (NEGATIVE) Medications Given: Discontinued Medications Diphenhydramine HCl (Benadryl Injection) 25 mg IVP EDNOW ONE Stop: 08/21/17 18:45 Last Admin: 08/21/17 19:00 Dose: 25 mg Haloperidol Lactate (Haldol Injection) 2.5 mg IVP EDNOW ONE Stop: 08/21/17 15:22 Last Admin: 08/21/17 15:27 Dose: Not Given Hydromorphone HCl (Dilaudid) 1 mg IVP EDNOW ONE Stop: 08/21/17 17:58 Last Admin: 08/21/17 18:06 Dose: 1 mg Sodium Chloride (Ns) 1,000 mls @ 0 mls/hr IV ONCE ONE; Wide Open PRN Reason: Protocol Stop: 08/21/17 14:37 Last Admin: 08/21/17 14:37 Dose: 1,000 mls Ketamine HCl (Ketamine) 12.2 mg 0.2 mg/kg (12.2 mg) IVP EDNOW ONE Stop: 08/21/17 18:47 Last Admin: 08/21/17 19:09 Dose: 12.2 mg Lorazepam (Ativan Injection) 1 mg IVP EDNOW ONE Stop: 08/21/17 18:45 Last Admin: 08/21/17 19:00 Dose: 1 mg Ondansetron HCl (Zofran) 4 mg IVP EDNOW ONE Stop: 08/21/17 14:58 Last Admin: 08/21/17 15:19 Dose: Not Given Ondansetron HCl (Zofran) 4 mg IVP EDNOW ONE Stop: 08/21/17 17:59 Last Admin: 08/21/17 18:06 Dose: 4 mg Oxycodone HCl (Oxycodone Ir) 10 mg PO EDNOW ONE Stop: 08/21/17 16:16 Last Admin: 08/21/17 16:59 Dose: 10 mg Departure - Departure Disposition: [facility] Acute Clinical Impression: Cyclic vomiting syndrome, Chronic pain Condition: Fair
[2017-08-21] MEDS ORDERED: ONDANSETRON 4 MG/2 ML VIAL IVP ONE ×2 (14:57→17:58)
[2017-08-21] MEDS ORDERED: HALOPERIDOL LACT 5 MG/ML INJ IVP ONE (15:21)
[2017-08-21 15:31] LABS: % IMMATURE GRANULYOCYTES 0.4 % (0.0-1.1); ABSOLUTE IMMATURE GRANULOCYTES 0.05 10^3/uL (0.00-0.10); ADD DIFF? NO; ADD MORPH? NO; ADD SCAN? NO; ATYPICAL LYMPHOCYTE FLAG 10 (0-99); FRAGMENT RBC FLAG 0 (0-99); HEMATOCRIT 44.1 % (38.0-47.0); HEMOGLOBIN 14.7 g/dL (12.6-16.3); LEFT SHIFT FLG 0 (0-99); LIPEMIA HEMOLYSIS FLAG 80 (0-99); MEAN CELL HEMOGLOBIN 29.3 pg (27.9-34.1); MEAN CELL HEMOGLOBIN CONCENTR. 33.3 g/dL (32.4-36.7); MEAN PLATELET VOLUME 10.8 fL (8.7-11.7); PLATELET CLUMPS FLAG 0 (0-99); PLATELET COUNT 352 10^3/uL (150-400); RED BLOOD CELL COUNT 5.01 10^6/uL (4.18-5.33); RED CELL DISTRIBUTION WIDTH 13.9 % (11.5-15.2)
[2017-08-21 15:37] LABS: ALANINE AMINOTRANSFERASE 55 IU/L (9-52); ALKALINE PHOSPHATASE 133 IU/L (38-126); ANION GAP 14 mEq/L (8-16); ASPARTATE AMINOTRANSFERASE 21 IU/L (14-46); BILIRUBIN,TOTAL 0.3 mg/dL (0.1-1.4); BILIRUBIN-CONJUGATED 0.2 mg/dL (0.0-0.5); BILIRUBIN-UNCONJUGATED 0.1 mg/dL (0.0-1.1); CALCIUM 9.6 mg/dL (8.5-10.4); CARBON DIOXIDE 22 mEq/l (22-31); CHLORIDE 109 mEq/L (97-110); CREATININE 0.6 mg/dL (0.6-1.0); GLOMERULAR FILTRATION RATE > 60; GLUCOSE 91 mg/dL (70-100); POTASSIUM 3.3 mEq/L (3.5-5.2); SODIUM 145 mEq/L (134-144); TOTAL PROTEIN 7.1 g/dL (6.3-8.2)
[2017-08-21] MEDS ORDERED: oxyCODONE IR 5 MG TAB PO ONE (16:15)
[2017-08-21] MEDS ORDERED: HYDROmorphONE/DILAUDID 1 MG/ML INJ IVP ONE (17:57)
[2017-08-21] MEDS ORDERED: LORazepam 2 MG/ML INJ IVP ONE (18:44)
[2017-08-21] MEDS ORDERED: KETAMINE 100 MG/10 ML SYR IVP ONE (18:46)
[2017-08-21] MEDS ORDERED: HYDROmorphONE/DILAUDID 1 MG/ML INJ ONE (20:41)
[2017-08-21] MEDS ORDERED: HYDROmorphONE/DILAUDID 2 MG/ML INJ IVP ONE (20:44)
[2017-08-21] MEDS ORDERED: oxyCODONE IR 5 MG TAB PO PRN (22:31)
[2017-08-21] MEDS ORDERED: LORazepam 2 MG/ML INJ IVP PRN (22:31)
[2017-08-21] MEDS ORDERED: POTASSIUM Cl (KCl) 20 MEQ in LR 1,000 ML IV SCH (22:45)
[2017-08-21] MEDS: ONDANSETRON 4 MG/2 ML VIAL IVP PRN (23:40)
[2017-08-21] MEDS: PANTOPRAZOLE SODIUM 40 MG VIAL IVP SCH (23:43)
[2017-08-21] MEDS: HYDROmorphONE/DILAUDID 1 MG/ML INJ IVP PRN (23:46)
[2017-08-22] MEDS ORDERED: LORazepam 2 MG/ML INJ IVP PRN (00:50)
[2017-08-22] MEDS ORDERED: fentaNYL 25 MCG PATCH TD SCH (01:00)
[2017-08-22] MEDS: FLUTICASONE NASAL 120 SPRAYS/16 GM MDI EACHNARE SCH ×2 (01:57→08:41)
[2017-08-22] MEDS: NICOTINE 7 MG/24 HR PATCH TD PRN (02:25)
[2017-08-22 03:02] LABS: COLOR YELLOW; LEUKOCYTE ESTERASE,URINE NEGATIVE (NEGATIVE); NITRITE,URINE NEGATIVE (NEGATIVE)
--- NOTE | 2017-08-22 03:20 | GHP ---
[f rep st] HISTORY AND PHYSICAL DATE OF ADMISSION: 08/21/2017 DATE OF SERVICE: 08/22/2017 SOURCE: Patient provides history, appears reliable. EMR from recent hospitalization was also reviewed. CHIEF COMPLAINT: Nausea, vomiting for 4 days. HISTORY OF PRESENT ILLNESS: This is a very pleasant 36-year-old female with unfortunate diagnosis of autoimmune hepatitis with chronic abdominal pain on chronic opiate therapy, history of depression, GERD, and who presents to the emergency department today with complaints of 4 days of persistent nausea and vomiting. Patient denies any hematemesis. She denies any diarrhea. Patient reports abdominal pain has worsened with persistent retching and nausea, vomiting. Patient denies any diarrhea. No melena or hematochezia. Her last BM was approximately 2 days ago. Patient states she has not been able to keep anything down, either liquid or solid. Patient denies any recent sick contacts. She was recently admitted at the end of July for cyclic vomiting and acute on chronic abdominal pain with similar symptoms. Patient states that her only new and acute issue is nasal sinus congestion and pressure with sinus headache for the past week. Patient denies any fevers, chills. No sore throat. No purulent drainage from her nose. REVIEW OF SYSTEMS: Negative except as noted above with addition of psychiatric , patient reports a history of anxiety, depression, but denies any SI or HI. ALLERGIES: Reglan, Compazine, Phenergan, and Haldol. Patient reports she develops dyskinesia. HOME MEDICATIONS: Amitriptyline 10 mg p.o. q.h.s.; Zofran ODT 8 mg p.o. q.8 hours p.r.n.; ibuprofen 200-400 mg p.o. q.6 hours p.r.n.; Prozac 10 mg p.o. daily; oxycodone 40 mg p.o. b.i.d.; fentanyl 50 mcg transdermal daily q.72 hours p.r.n.; diphenhydramine 25-50 mg p.o. q.4 hours p.r.n.; oxycodone IR 10 mg p.o. q.4 hours p.r.n. PAST MEDICAL HISTORY: Significant for chronic abdominal pain, epigastric left upper quadrant, on chronic opiate therapy related to autoimmune hepatitis. Patient with history of anxiety and depression, GERD, and remote history of a PICC-associated DVT. PAST SURGICAL HISTORY: Significant for laparoscopic cholecystectomy. FAMILY HISTORY: Negative for any autoimmune disorders, including autoimmune hepatitis, lupus, rheumatoid arthritis, or others. Patient states that maternal and paternal grandmothers had diabetes, otherwise, everybody is healthy. SOCIAL HISTORY: Patient is currently living with her parents. She denies any use of cigarettes, but does occasionally use of a vaporizer. She denies any illicit drug use and drinks only very rarely any alcohol. CODE STATUS: Full. PHYSICAL EXAMINATION: VITAL SIGNS: Upon arrival to the emergency department, blood pressure 117/75, heart rate 106, respiratory rate 15, O2 sat is 97% on room air with temperature 36.9. Vitals upon arrival to the floor available are blood pressure 135/84, heart rate 101, respiratory rate 16, O2 saturation 91% on room air with temperature 36.6. GENERAL: No acute distress, pleasant, young adult female, and is sitting up in her bed watching TV. She does not appear to be in any acute distress. She does appear fatigued, acutely ill, but nontoxic. HEAD: Normocephalic, atraumatic. EYES: Extraocular muscles grossly intact. No scleral icterus or conjunctival injection. Pupils equal, round, slightly decreased reactivity to light bilaterally, but symmetric. Patient is wearing glasses. ENT: Mucous membranes appear dry. No pharyngeal erythema or exudates. NECK: Supple. Trachea midline. CVA: Regular rate and rhythm. No murmurs, rubs, or gallops. RESPIRATORY: Lungs are clear to auscultation bilaterally. No wheezes, rales, or rhonchi. Patient with unlabored breathing. ABDOMEN: Positive bowel sounds. Soft. No significant observable tenderness or withdrawal to exam. Patient does note some pain with palpation. No rebound or guarding noted. No abdominal distention. Positive bowel sounds. : No Robin in place. No suprapubic tenderness to palpation. Patient with positive CVA tenderness on the left flank. EXTREMITIES: No cyanosis, clubbing, or edema are appreciated. Patient moves all extremities. Sits up independently. NEURO: Grossly nonfocal. No facial drooping. Patient is awake, alert, and oriented x4. Strength intact as above. PSYCH: Patient does appear a little bit anxious, but she is otherwise very pleasant and cooperative. Thought processes, content, and questions are all appropriate. LABORATORY DATA: WBC 11.96, H and H 14.7 and 44.1, MCV of 88.0, platelet count 352; no bands. Sodium is 145, potassium 3.3, chloride 109, CO2 is 22, anion gap 14, BUN 8, creatinine 0.6, GFR greater than 60, glucose 91, calcium is 9.6. Total bilirubin0.3, unconjugated bilirubin 0.1, ALT is 55, AST is 21, alkaline phosphatase 133, total protein 7.1, albumin 4.0, lipase 70. U-tox negative for everything except benzodiazepines, timing of which does not appear that patient received any benzodiazepines in the emergency department. ASSESSMENT AND PLAN: Pleasant 36-year-old female with history of chronic abdominal pain related to autoimmune hepatitis and history of cyclic vomiting, who presents with the same. 1. Cyclic vomiting. Patient is status post Ativan, Benadryl, ketamine, Zofran in the emergency department. Additionally, I have ordered Protonix. Patient is quite concerned regarding her available regimen to assist with controlling her nausea and vomiting, as well as for pain control. She reports that her regimen she had during last hospitalization worked very well for her. This did include Ativan, Zofran, in addition for her pain control oxy, Dilaudid p.r.n., and a fentanyl patch. Patient was noting that she was having some issues falling asleep. At this point, given patient has multiple narcotics and benzodiazepines on her med rec, I advised that I am not comfortable adding any further sedatives at this point while we monitor her overnight given that she is not chronically on these medications and she agrees. 2. Acute on chronic abdominal pain. Management as noted above. 3. Hypokalemia related to gastrointestinal losses with nausea, vomiting. Patient will receive replacement in her IV. 4. Hypernatremia. This is likely due to volume contraction in the setting of decreased oral intake and hydration. Will plan to repeat a sodium in the morning. 5. Autoimmune hepatitis with elevated transaminase. Patient is not currently on any steroid therapy. Upon review of her previous record, she was started on budesonide by her primary GI, Dr. Rowe, but felt that she did not tolerate this and this was since discontinued. Patient states she has not had yet any followup since her last hospital stay with Dr. Rowe. 6. Sinus congestion and headache. Patient is afebrile. She has no significant elevation in white count. Suspect this could be related to some allergic rhinitis or allergy based and less likely viral or bacterial. At this point, will not order any antibiotics, but will try some Flonase. May consider addition of other antihistamines in the morning if no improvement in her symptoms. 7. Fluids, electrolytes, and nutrition. Will continue with IV fluid supplementation with addition of potassium. Further electrolytes will be monitored in the morning and replaced as appropriate. Diet is currently clears and advanced as tolerated. Orders available. 8. Prophylaxis. SCDs. Patient is low risk for deep vein thrombosis and anticipate short hospital stay. Patient does have a previous history listed in her chart of deep vein thrombosis-associated with PICC line. SCDs are ordered. 9. Code status is full. DISPOSITION: Patient admitted to observation on the medical floor. Currently, anticipate less than a 24-hour stay once patient's symptoms are under control. /[id number]/MODL MTDD
[2017-08-22] MEDS: ONDANSETRON 4 MG/2 ML VIAL IVP PRN ×5 (04:33→22:14)
[2017-08-22] MEDS: HYDROmorphONE/DILAUDID 1 MG/ML INJ IVP PRN ×5 (04:36→22:15)
[2017-08-22 05:14] LABS: % IMMATURE GRANULYOCYTES 0.5 % (0.0-1.1); ABSOLUTE IMMATURE GRANULOCYTES 0.06 10^3/uL (0.00-0.10); ADD DIFF? NO; ADD MORPH? NO; ADD SCAN? NO; ATYPICAL LYMPHOCYTE FLAG 10 (0-99); FRAGMENT RBC FLAG 0 (0-99); HEMATOCRIT 36.3 % (38.0-47.0); HEMOGLOBIN 11.9 g/dL (12.6-16.3); LEFT SHIFT FLG 0 (0-99); LIPEMIA HEMOLYSIS FLAG 80 (0-99); MEAN CELL HEMOGLOBIN 29.1 pg (27.9-34.1); MEAN CELL HEMOGLOBIN CONCENTR. 32.8 g/dL (32.4-36.7); MEAN CELL VOLUME 88.8 fL (81.5-99.8); MEAN PLATELET VOLUME 10.3 fL (8.7-11.7); PLATELET CLUMPS FLAG 10 (0-99); PLATELET COUNT 260 10^3/uL (150-400); RED BLOOD CELL COUNT 4.09 10^6/uL (4.18-5.33); RED CELL DISTRIBUTION WIDTH 13.8 % (11.5-15.2)
[2017-08-22 05:27] LABS: ALANINE AMINOTRANSFERASE 46 IU/L (9-52); ALBUMIN 3.2 g/dL (3.5-5.0); ALKALINE PHOSPHATASE 105 IU/L (38-126); ANION GAP 14 mEq/L (8-16); ASPARTATE AMINOTRANSFERASE 25 IU/L (14-46); BILIRUBIN,TOTAL 0.5 mg/dL (0.1-1.4); CARBON DIOXIDE 21 mEq/l (22-31); CHLORIDE 109 mEq/L (97-110); CREATININE 0.7 mg/dL (0.6-1.0); GLOMERULAR FILTRATION RATE > 60; GLUCOSE 78 mg/dL (70-100); MAGNESIUM 1.9 mg/dL (1.6-2.3); POTASSIUM 3.4 mEq/L (3.5-5.2); SODIUM 144 mEq/L (134-144); TOTAL PROTEIN 5.6 g/dL (6.3-8.2)
[2017-08-22] MEDS: PANTOPRAZOLE SODIUM 40 MG VIAL IVP SCH (08:41)
[2017-08-22] MEDS ORDERED: OLANZapine DISINTEGR 5 MG TAB PO ONE (10:40)
[2017-08-22] MEDS: D5W 1/2 NS W/ 20 KCl/L 1,000 ML IV SCH (11:51)
[2017-08-22] MEDS: fentaNYL 25 MCG PATCH TD SCH (11:52)
--- NOTE | 2017-08-22 14:17 | ASMTCMCOM ---
CM Note CM Note Notes: Pt admitted w/nausea/vomiting, has hx of autoimmune hepatitis and chronic abd pain. Per H&P, pt lives w/parents. Anticipate dc home independantly when medically stable. CM available if needs should arise. Date Signed: 08/22/2017 02:17 PM Electronically Signed By:Tammy Thompson RN
[2017-08-22] MEDS ORDERED: diphenhydrAMINE 25 MG CAP PO PRN (15:55)
[2017-08-22] MEDS ORDERED: ONDANSETRON DISINTEGRATING 4 MG TAB PO PRN (16:10)
--- NOTE | 2017-08-22 16:50 | HOSPPROG ---
Hospitalist Progress Note Assessment/Plan: Assessment: 36-year-old female presents with acute intractable nausea and vomiting in the setting of suspected cyclic vomiting syndrome, autoimmune hepatitis, chronic pain with continuous opiate dependency Plan: 1. Intractable nausea and vomiting. Acute, most likely secondary to cyclic vomiting, patient completely unable to tolerate oral intake today secondary to the severity of her symptoms -requires ongoing supportive care with IV fluids as her oral intake is very low -continue supportive care with antiemetics -Zyprexa did not produce a positive affect, patient has had a very negative affect Haldol -continue at bedtime amitriptyline -counseled the patient regarding positive impact of outpatient therapy and mental health assistance, recommend that she receive [facility] follow-up 2. Hypernatremia. Acute, status post IV fluids, continue to monitor electrolytes 3. Chronic pain with continuous opiate dependency. Patient has established care with Dr. Tobin, she has been advised to avoid benzodiazepines, will move from profile, continue her home opiates 4. Autoimmune hepatitis. 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 Rowe 5. Depression. Chronic, continue home medication Diet. Advance as tolerated Prophylaxis. Low risk patient, SCDs Code. Full Disposition. Anticipated discharge uncertain this time, upgraded to inpatient admission status given that her anticipated length stay is greater than 48 hr for reasonable medical necessity including intractable nausea and vomiting rendering her unable to tolerate oral intake, requiring ongoing IV fluids and supportive IV antiemetic care. Subjective: Patient reports that her symptoms are similar to prior ones, significant severity, rendering her unable to tolerate oral intake Objective: Vital Signs Temp Pulse Resp BP Pulse Ox 36.6 C 88 14 112/79 97 08/22/17 16:00 08/22/17 16:00 08/22/17 16:00 08/22/17 16:00 08/22/17 16:00 Laboratory Results 08/22/17 04:48 08/22/17 04:48 08/21/17 08/22/17 08/23/17 05:59 05:59 05:59 Intake Total 1000 Balance 1000 - Time Spent With Patient Time Spent with Patient: greater than 35 minutes Time Spent with Patient: Greater than 35 minutes spent on this patients care, greater than 50% of time spent counseling, educating, and coordinating care regarding the above mentioned plan. - Physical Exam Constitutional: uncomfortable Cardiovascular: regular rate and rhythym, no murmur, rub, or gallop Respiratory: no respiratory distress, no rales or rhonchi, clear to auscultation Gastrointestinal: normoactive bowel sounds, tenderness (Mild), No guarding, No distension Neurologic: AAOx3 Psychiatric: interacting appropriately, not anxious, not encephalopathic, thought process linear ICD10 Worksheet Patient Problems: Problems Problem Status Onset Altered mental status, unspecified Acute Abdominal pain Acute SIRS (systemic inflammatory response syndrome) Acute Intractable nausea and vomiting Acute Nausea & vomiting Acute Cyclic vomiting syndrome Acute Chronic pain Acute
[2017-08-22] MEDS: AMITRIPTYLINE HCL 10 MG TAB PO SCH (22:00)
[2017-08-23] MEDS: ZOLPIDEM TARTRATE 5 MG TAB PO PRN ×2 (00:44→21:44)
[2017-08-23] MEDS: ONDANSETRON 4 MG/2 ML VIAL IVP PRN ×5 (02:35→22:57)
[2017-08-23] MEDS: HYDROmorphONE/DILAUDID 1 MG/ML INJ IVP PRN ×5 (02:35→22:55)
[2017-08-23 05:29] LABS: % IMMATURE GRANULYOCYTES 0.6 % (0.0-1.1); ABSOLUTE IMMATURE GRANULOCYTES 0.05 10^3/uL (0.00-0.10); ADD DIFF? NO; ADD MORPH? NO; ADD SCAN? NO; ATYPICAL LYMPHOCYTE FLAG 10 (0-99); FRAGMENT RBC FLAG 0 (0-99); HEMOGLOBIN 12.9 g/dL (12.6-16.3); LEFT SHIFT FLG 0 (0-99); LIPEMIA HEMOLYSIS FLAG 80 (0-99); MEAN CELL HEMOGLOBIN 29.4 pg (27.9-34.1); MEAN CELL HEMOGLOBIN CONCENTR. 33.1 g/dL (32.4-36.7); MEAN CELL VOLUME 88.8 fL (81.5-99.8); MEAN PLATELET VOLUME 10.4 fL (8.7-11.7); PLATELET CLUMPS FLAG 10 (0-99); PLATELET COUNT 253 10^3/uL (150-400); RED BLOOD CELL COUNT 4.39 10^6/uL (4.18-5.33); RED CELL DISTRIBUTION WIDTH 13.5 % (11.5-15.2)
[2017-08-23 05:44] LABS: ALANINE AMINOTRANSFERASE 55 IU/L (9-52); ALBUMIN 3.5 g/dL (3.5-5.0); ALKALINE PHOSPHATASE 111 IU/L (38-126); ANION GAP 13 mEq/L (8-16); ASPARTATE AMINOTRANSFERASE 33 IU/L (14-46); BILIRUBIN,TOTAL 0.4 mg/dL (0.1-1.4); CALCIUM 9.1 mg/dL (8.5-10.4); CARBON DIOXIDE 27 mEq/l (22-31); CHLORIDE 100 mEq/L (97-110); CREATININE 0.8 mg/dL (0.6-1.0); GLOMERULAR FILTRATION RATE > 60; GLUCOSE 66 mg/dL (70-100); POTASSIUM 3.4 mEq/L (3.5-5.2); SODIUM 140 mEq/L (134-144); TOTAL PROTEIN 6.5 g/dL (6.3-8.2)
[2017-08-23] MEDS ORDERED: POTASSIUM Cl (KCl) 100 ML IV SCH (08:30)
[2017-08-23] MEDS: PANTOPRAZOLE SODIUM 40 MG VIAL IVP SCH (09:02)
[2017-08-23] MEDS: FLUTICASONE NASAL 120 SPRAYS/16 GM MDI EACHNARE SCH (09:03)
[2017-08-23] MEDS: FLUoxetine 10 MG CAP PO SCH (09:04)
[2017-08-23] MEDS: POTASSIUM Cl (KCl) 10 MEQ in NS 100 ML IV SCH ×4 (10:14→19:05)
[2017-08-23] MEDS: D5W 1/2 NS W/ 20 KCl/L 1,000 ML IV SCH (10:14)
[2017-08-23] MEDS: NICOTINE 7 MG/24 HR PATCH TD PRN (13:17)
--- NOTE | 2017-08-23 14:47 | PDMN ---
Medical Necessity Medical necessity: change to IP; los>2mn for intractable N/V, likely r/t cyclic vomiting w/inability to tolerate oral intake, and hypernatremia s/p IVF; requires ongoing IVF and IV antiemetics; comorbid chronic pain, autoimmune hepatitis, and depression; per progress note 08/22/17 and order 08/23/17
--- NOTE | 2017-08-23 18:43 | HOSPPROG ---
Hospitalist Progress Note Assessment/Plan: Assessment: 36-year-old female presents with acute intractable nausea and vomiting in the setting of suspected cyclic vomiting syndrome, autoimmune hepatitis, chronic pain with continuous opiate dependency Plan: 1. Intractable nausea and vomiting. Acute, most likely secondary to cyclic vomiting, patient completely unable to tolerate oral intake today secondary to the severity of her symptoms -requires ongoing supportive care with IV fluids as her oral intake is absent -continue supportive care with antiemetics -continue bedtime amitriptyline -[facility] resource RN consult placed, patient agrees this could be helpful for discussing the stress of chronic illness, opiate physical dependency 2. Hypernatremia. Acute, status post IV fluids, continue to monitor electrolytes 3. Chronic pain with continuous opiate dependency. Patient has established care with Dr. Tobin, she has been advised to avoid benzodiazepines, will move from profile, continue her home opiates 4. Autoimmune hepatitis. 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 Rowe 5. Depression. Chronic, continue home medication Diet. Advance as tolerated Prophylaxis. Low risk patient, SCDs Code. Full Disposition. Anticipated discharge uncertain this time, upgraded to inpatient admission status given that her anticipated length stay is greater than 48 hr for reasonable medical necessity including intractable nausea and vomiting rendering her unable to tolerate oral intake, requiring ongoing IV fluids and supportive IV antiemetic care. Subjective: ongoing nausea, no PO intake Objective: Vital Signs Temp Pulse Resp BP Pulse Ox 36.8 C 92 15 104/72 91 L 08/23/17 16:00 08/23/17 16:00 08/23/17 16:00 08/23/17 16:00 08/23/17 16:00 08/22/17 08/23/17 08/24/17 05:59 05:59 05:59 Intake Total 130 Output Total 100 Balance 30 - Physical Exam Constitutional: no apparent distress, not in pain, uncomfortable, No chronically ill appearing Cardiovascular: regular rate and rhythym, no murmur, rub, or gallop Respiratory: no respiratory distress, no rales or rhonchi, clear to auscultation Gastrointestinal: normoactive bowel sounds, soft, non-tender abdomen, no palpable masses Neurologic: AAOx3, sensation intact bilaterally Psychiatric: interacting appropriately, not anxious, not encephalopathic, thought process linear ICD10 Worksheet Patient Problems: Problems Problem Status Onset Altered mental status, unspecified Acute Abdominal pain Acute SIRS (systemic inflammatory response syndrome) Acute Intractable nausea and vomiting Acute Nausea & vomiting Acute Cyclic vomiting syndrome Acute Chronic pain Acute
[2017-08-23] MEDS: AMITRIPTYLINE HCL 10 MG TAB PO SCH (21:24)
[2017-08-24] MEDS: D5W 1/2 NS W/ 20 KCl/L 1,000 ML IV SCH ×3 (01:10→21:36)
[2017-08-24] MEDS: HYDROmorphONE/DILAUDID 1 MG/ML INJ IVP PRN ×4 (05:06→20:05)
[2017-08-24] MEDS: ONDANSETRON 4 MG/2 ML VIAL IVP PRN ×3 (05:07→20:06)
[2017-08-24 05:33] LABS: ALANINE AMINOTRANSFERASE 47 IU/L (9-52); ALBUMIN 3.4 g/dL (3.5-5.0); ALKALINE PHOSPHATASE 103 IU/L (38-126); ANION GAP 13 mEq/L (8-16); ASPARTATE AMINOTRANSFERASE 23 IU/L (14-46); BILIRUBIN,TOTAL 0.4 mg/dL (0.1-1.4); CALCIUM 8.9 mg/dL (8.5-10.4); CARBON DIOXIDE 25 mEq/l (22-31); CHLORIDE 102 mEq/L (97-110); CREATININE 0.7 mg/dL (0.6-1.0); GLOMERULAR FILTRATION RATE > 60; GLUCOSE 89 mg/dL (70-100); SODIUM 140 mEq/L (134-144); TOTAL PROTEIN 6.1 g/dL (6.3-8.2)
[2017-08-24] MEDS: PANTOPRAZOLE SODIUM 40 MG VIAL IVP SCH (10:14)
[2017-08-24] MEDS: FLUoxetine 10 MG CAP PO SCH (10:15)
[2017-08-24] MEDS: FLUTICASONE NASAL 120 SPRAYS/16 GM MDI EACHNARE SCH (10:19)
--- NOTE | 2017-08-24 17:10 | HOSPPROG ---
Hospitalist Progress Note Assessment/Plan: Assessment: 36-year-old female presents with acute intractable nausea and vomiting in the setting of suspected cyclic vomiting syndrome, autoimmune hepatitis, chronic pain with continuous opiate dependency Plan: 1. Intractable nausea and vomiting. Acute, most likely secondary to cyclic vomiting, patient completely unable to tolerate oral intake today secondary to the severity of her symptoms -requires ongoing supportive care with IV fluids as her oral intake is absent -continue supportive care with antiemetics -continue bedtime amitriptyline -counseled patient that her lack of BMs for 1 week can also contribute to symptoms, and, if no BM by tomorrow AM, will use suppository/enema to help alleviate 2. Hypernatremia. Acute, status post IV fluids, continue to monitor electrolytes 3. Chronic pain with continuous opiate dependency. Patient has established care with Dr. Tobin, she has been advised to avoid benzodiazepines, continue her home opiates 4. Autoimmune hepatitis. 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 Rowe 5. Depression. Chronic, continue home medication Diet. Advance as tolerated Prophylaxis. Low risk patient, SCDs Code. Full Disposition. Anticipated discharge 08/25, pending ability to tolerate oral intake Subjective: only tolerated one ensure all day, no BM Objective: Vital Signs Temp Pulse Resp BP Pulse Ox 36.8 C 90 16 93/61 L 92 08/24/17 15:25 08/24/17 15:25 08/24/17 15:25 08/24/17 15:25 08/24/17 15:25 Laboratory Results 08/24/17 04:43 08/23/17 08/24/17 08/25/17 05:59 05:59 05:59 Intake Total 3 Output Total 100 1972 - Time Spent With Patient Time Spent with Patient: greater than 35 minutes Time Spent with Patient: Greater than 35 minutes spent on this patients care, greater than 50% of time spent counseling, educating, and coordinating care regarding the above mentioned plan. - Physical Exam Constitutional: no apparent distress, not in pain, uncomfortable Cardiovascular: regular rate and rhythym, no murmur, rub, or gallop Respiratory: no respiratory distress, no rales or rhonchi, clear to auscultation Gastrointestinal: No normoactive bowel sounds (hypoactive bowel sounds), No tenderness, No guarding, No distension Neurologic: AAOx3, sensation intact bilaterally, No weakness Psychiatric: interacting appropriately, not anxious, not encephalopathic, thought process linear ICD10 Worksheet Patient Problems: Problems Problem Status Onset Altered mental status, unspecified Acute Abdominal pain Acute SIRS (systemic inflammatory response syndrome) Acute Intractable nausea and vomiting Acute Nausea & vomiting Acute Cyclic vomiting syndrome Acute Chronic pain Acute
[2017-08-24] MEDS: NICOTINE POLACRILEX 2 MG GUM B PRN ×2 (17:28→23:03)
[2017-08-24] MEDS: ZOLPIDEM TARTRATE 5 MG TAB PO PRN (21:38)
[2017-08-24] MEDS: AMITRIPTYLINE HCL 10 MG TAB PO SCH (23:11)
[2017-08-25] MEDS: ONDANSETRON 4 MG/2 ML VIAL IVP PRN ×6 (01:22→22:12)
[2017-08-25] MEDS: HYDROmorphONE/DILAUDID 1 MG/ML INJ IVP PRN ×6 (01:23→22:14)
[2017-08-25 04:32] LABS: ANION GAP 9 mEq/L (8-16); CALCIUM 8.7 mg/dL (8.5-10.4); CARBON DIOXIDE 26 mEq/l (22-31); CHLORIDE 103 mEq/L (97-110); CREATININE 0.7 mg/dL (0.6-1.0); GLOMERULAR FILTRATION RATE > 60; GLUCOSE 105 mg/dL (70-100); SODIUM 138 mEq/L (134-144)
[2017-08-25] MEDS: FLUoxetine 10 MG CAP PO SCH (09:59)
[2017-08-25] MEDS: PANTOPRAZOLE SODIUM 40 MG VIAL IVP SCH (09:59)
[2017-08-25] MEDS: FLUTICASONE NASAL 120 SPRAYS/16 GM MDI EACHNARE SCH (10:09)
[2017-08-25] MEDS: fentaNYL 25 MCG PATCH TD SCH (10:22)
[2017-08-25] MEDS: NICOTINE POLACRILEX 2 MG GUM B PRN ×3 (10:24→18:19)
--- NOTE | 2017-08-25 13:54 | ASMTCMCOM ---
CM Note CM Note Notes: Patient continues to have nausea, vomitting. Discharge plan continues to be home with no needs. Date Signed: 08/25/2017 01:54 PM Electronically Signed By:Arielle Layton LCSW
--- NOTE | 2017-08-25 16:06 | HOSPPROG ---
Hospitalist Progress Note Assessment/Plan: Assessment: 36-year-old female presents with acute intractable nausea and vomiting in the setting of suspected cyclic vomiting syndrome, autoimmune hepatitis, chronic pain with continuous opiate dependency Plan: 1. Intractable nausea and vomiting. Acute, most likely secondary to cyclic vomiting, patient completely unable to tolerate oral intake today secondary to the severity of her symptoms -requires ongoing supportive care with IV fluids as her oral intake remains very low, only two cups of tea, vomited smoothie -continue supportive care with antiemetics -continue bedtime amitriptyline -counseled patient that her lack of BMs for 1 week can also contribute to symptoms, and, if no BM by tomorrow AM, will use suppository/enema to help alleviate 2. Hypernatremia. Acute, status post IV fluids, continue to monitor electrolytes 3. Chronic pain with continuous opiate dependency. Patient has established care with Dr. Tobin, she has been advised to avoid benzodiazepines, continue her home opiates 4. Autoimmune hepatitis. Chronic, most likely produces a degree of right upper quadrant pain, but it has certainly produced overlay with her cyclic vomiting which is likely functional in origin -currently off of budesonide -recommend outpatient follow-up Dr. Rowe 5. Depression. Chronic, continue home medication Diet. Advance as tolerated, recommend PO liquid advancement today, attempt solids tomorrow if able Prophylaxis. Low risk patient, SCDs Code. Full Disposition. Anticipated discharge 08/26, pending ability to tolerate oral intake Subjective: vomited her smoothie, tolerated two cups of tea Objective: Vital Signs Temp Pulse Resp BP Pulse Ox 36.6 C 96 13 102/69 95 08/25/17 15:09 08/25/17 15:09 08/25/17 15:09 08/25/17 15:09 08/25/17 15:09 Laboratory Results 08/25/17 03:34 08/24/17 08/25/17 08/26/17 05:59 05:59 05:59 Intake Total 2073 1037 Output Total 100 200 Balance 1973 837 - Pending Discharge Pending Discharge Within 24 Hours: Yes Pending Discharge Date: 08/26/17 Pending Discharge Time: 11:00 - Physical Exam Constitutional: no apparent distress, appears nourished, not in pain, uncomfortable Cardiovascular: regular rate and rhythym, no murmur, rub, or gallop Respiratory: no respiratory distress, no rales or rhonchi, clear to auscultation Gastrointestinal: normoactive bowel sounds, no palpable masses, tenderness (RUQ) , No guarding, No distension Neurologic: AAOx3 Psychiatric: not anxious, not encephalopathic, flat affect, No agitated ICD10 Worksheet Patient Problems: Problems Problem Status Onset Altered mental status, unspecified Acute Abdominal pain Acute SIRS (systemic inflammatory response syndrome) Acute Intractable nausea and vomiting Acute Nausea & vomiting Acute Cyclic vomiting syndrome Acute Chronic pain Acute
[2017-08-25] MEDS: ZOLPIDEM TARTRATE 5 MG TAB PO PRN (21:13)
[2017-08-25] MEDS: D5W 1/2 NS W/ 20 KCl/L 1,000 ML IV SCH (21:19)
[2017-08-25] MEDS: AMITRIPTYLINE HCL 10 MG TAB PO SCH (21:28)
[2017-08-26] MEDS: HYDROmorphONE/DILAUDID 1 MG/ML INJ IVP PRN ×6 (02:15→22:02)
[2017-08-26] MEDS: ONDANSETRON 4 MG/2 ML VIAL IVP PRN ×6 (02:15→22:03)
[2017-08-26 05:01] LABS: ANION GAP 9 mEq/L (8-16); CALCIUM 8.8 mg/dL (8.5-10.4); CARBON DIOXIDE 29 mEq/l (22-31); CHLORIDE 101 mEq/L (97-110); CREATININE 0.7 mg/dL (0.6-1.0); GLOMERULAR FILTRATION RATE > 60; GLUCOSE 92 mg/dL (70-100); POTASSIUM 4.5 mEq/L (3.5-5.2); SODIUM 139 mEq/L (134-144)
[2017-08-26] MEDS: D5W 1/2 NS W/ 20 KCl/L 1,000 ML IV SCH ×2 (06:15→14:12)
[2017-08-26] MEDS: FLUTICASONE NASAL 120 SPRAYS/16 GM MDI EACHNARE SCH (08:26)
[2017-08-26] MEDS: PANTOPRAZOLE SODIUM 40 MG VIAL IVP SCH (08:26)
[2017-08-26] MEDS: FLUoxetine 10 MG CAP PO SCH (08:26)
[2017-08-26] MEDS: NICOTINE POLACRILEX 2 MG GUM B PRN ×3 (08:26→17:59)
[2017-08-26] MEDS ORDERED: METHYLNALTREXONE BROMIDE 12 MG/0.6 ML INJ SC ONE (09:34)
--- NOTE | 2017-08-26 10:56 | HOSPPROG ---
Hospitalist Progress Note Assessment/Plan: DIAGNOSES: -acute on chronic abdominal pain -intractable nausea vomiting -constipation, medication induced -chronic pain syndrome with chronic prescribed narcotic use at moderately high dose -question of autoimmune induced versus other cause of elevated liver enzymes, stable at this time -chronic depression, stable at this time At this point the patient has ongoing issues both at home and here in the hospital have a lot to do with side effects of medications. She is getting moderately high doses of narcotic leading to bed constipation. Despite having no bowel movement for nearly a week her colon on x-ray is still full of stool from 1 end to the other. In addition she is getting very large amount of intravenous Benadryl here which is aggravating that problem at this time. At this point we need to back off from the Benadryl and try and decrease the amount of narcotics she is using. Will give some methyl naltrexone today and probably some laxative as well however the patient is very leery of all this as she states that laxative medicines typically make her cramp badly. She does understand the issues with the chronic narcotics and is working now with a new pain management physician and she is hoping to taper off of the narcotic medicines over time. PLANS: -attempt to stop Benadryl today -increase Zofran doses for the moment -1 dose of methylnaltrexone this morning -depending on results will plan on also some laxative -attempt to wean off of IV narcotic today -home when she is clearly able to manage symptoms and maintain hydration and food intake off of IV medicines, potentially later today or tomorrow SUBJECTIVE: Still with ongoing pain and nausea but the symptoms are improving. She says she was able to keep some food and fluid in the last evening. Has not attempted to eat yet today. Notably however she still getting IV Benadryl and IV narcotic every 4 hr in addition to her usual oral pain medicines from home. No fever OBJECTIVE Vitals reviewed: Stable without fever Crime Scene Investigator, my review: Exam: alert oriented , looks reasonably relaxed skin warm dry color ok no jaundice resps not labored lungs clear BSs heart regular abd soft nondistended; her usual chronic right upper quadrant tenderness, otherwise nontender, bowel sounds present limbs warm, no edema iv site ok Laboratory data: Stable Chem panel with normal renal function and potassium Abdominal x-rays I ordered and reviewed the pictures this morning; she has stool throughout her colon Objective: Vital Signs Temp Pulse Resp BP Pulse Ox 36.7 C 86 13 108/78 97 08/26/17 08:20 08/26/17 08:20 08/26/17 08:20 08/26/17 08:20 08/26/17 08:20 Laboratory Results 08/26/17 04:02 08/25/17 08/26/17 08/27/17 06:59 06:59 06:59 Intake Total 1037 2458 Output Total 200 Balance 837 2458 ICD10 Worksheet Patient Problems: Problems Problem Status Onset Chronic pain Acute Cyclic vomiting syndrome Acute Abdominal pain Acute Altered mental status, unspecified Acute Intractable nausea and vomiting Acute Nausea & vomiting Acute SIRS (systemic inflammatory response syndrome) Acute
[2017-08-26] MEDS: AMITRIPTYLINE HCL 10 MG TAB PO SCH (19:51)
[2017-08-26] MEDS: ZOLPIDEM TARTRATE 5 MG TAB PO PRN (21:34)
[2017-08-27] MEDS: ONDANSETRON 4 MG/2 ML VIAL IVP PRN ×4 (02:24→14:39)
[2017-08-27] MEDS: HYDROmorphONE/DILAUDID 1 MG/ML INJ IVP PRN ×3 (02:24→10:38)
[2017-08-27 04:07] VITALS: O2SAT 95
[2017-08-27] MEDS: FLUoxetine 10 MG CAP PO SCH (10:38)
[2017-08-27] MEDS: PANTOPRAZOLE SODIUM 40 MG VIAL IVP SCH (10:38)
[2017-08-27] MEDS: FLUTICASONE NASAL 120 SPRAYS/16 GM MDI EACHNARE SCH (10:39)
[2017-08-27] MEDS: NICOTINE POLACRILEX 2 MG GUM B PRN ×2 (12:37→16:00)
[2017-08-27] MEDS: oxyCODONE IR 5 MG TAB PO PRN ×2 (12:40→16:53)
[2017-08-27 15:42] VITALS: BP 110/71; PULSE 89; RESP 16; TEMP 98
--- NOTE | 2017-08-27 16:08 | ASMTCMCOM ---
CM Note CM Note Notes: Pt improving. May d/c home today with no CM needs. Date Signed: 08/27/2017 04:08 PM Electronically Signed By:BERNIE Barillas
--- NOTE | 2017-08-27 16:50 | ASDISCHSUM ---
Discharge Information Plan Status:Home with No Needs Medically Cleared to Leave:08/26/2017 Discharge Date:08/26/2017 CM D/C Disposition:Home, Routine, Self-Care ADT D/C Disposition:Home, Routine, Self-Care Projected Discharge Date:08/26/2017 Transportation at D/C:Family Discharge Delay Reason: Follow-Up Date:08/26/2017 Discharge Slot: Final Diagnosis:Intractable nausea and vomiting, Hypernatremia Placement Information Patient Contact Information Contact Name:BONITA Relationship:Mother Address:[address] [place] [address] [address] City:[place] Alternate Phone: [facility]/Zip Code:[place] [address] Email: Financial Information Financial Class: Primary Plan Desc:[email or web address] Primary Plan Number:[id number] Secondary Plan Desc: Secondary Plan Number: Assessment Information [facility] CM Progress Note CM Note CM Note Notes: Pt admitted w/nausea/vomiting, has hx of autoimmune hepatitis and chronic abd pain. Per H&P, pt lives w/parents. Anticipate dc home independantly when medically stable. CM available if needs should arise. Date Signed: 08/22/2017 02:17 PM Electronically Signed By:Tammy Thompson RN [facility] CM Progress Note CM Note CM Note Notes: Patient continues to have nausea, vomitting. Discharge plan continues to be home with no needs. Date Signed: 08/25/2017 01:54 PM Electronically Signed By:Arielle Layton LCSW [facility] CM Progress Note CM Note CM Note Notes: Pt petr. January d/c home today with no CM needs. Date Signed: 08/27/2017 04:08 PM Electronically Signed By:BERNIE Barillas Intervention Information
--- NOTE | 2017-08-28 02:28 | GDS ---
[f rep st] DISCHARGE SUMMARY DISCHARGE DIAGNOSES: 1. Acute on chronic abdominal pain. 2. Intractable nausea and vomiting. 3. Medication-induced constipation. 4. Chronic pain syndrome with chronic prescribed use of narcotics and Benadryl at high doses at home . 5. Autoimmune or other cause of chronically elevated liver enzymes, stable at this time. 6. Chronic depression, stable at this time. HOSPITAL COURSE: Radha is a 36-year-old woman known to our service who comes in at this time with s everal days' worth of nausea and vomiting, a week's worth of constipation without bowel movement, and increase in her usual chronic abdominal pain. She has chronic right upper quadrant abdominal pain o f uncertain etiology but may be related to some chronic liver enzyme elevations that she has and ther e is a question of whether she has an autoimmune hepatitis. The patient did not have any fevers or a ny other signs of infection or acute inflammatory process. There was no evidence of any acute organ dysfunction. There was no evidence of thromboembolic or other vascular disease. There was no eviden ce of weight loss or other reasons to be concerned about tumor. She did not have any acute renal or other organ failure as a consequence of her vomiting. There was no evidence of bowel obstruction. Tori richardson patient was brought in the hospital and treated with IV hydration, pain medicines, and antiemetics . Her improvement was fairly slow. It was felt that most likely she was having largely medication-r elated side effects on top of her chronic syndrome. As we went along she was given some methylnaltre xone and this did give a good evacuation of bowels and did lead to improvement more rapidly in her sy mptoms after that. At this time, she is stable for discharge to home as she is eating and drinking easily without any IV medication and is basically back to her home medication regimen. I had very long discussions with tori richardson patient about the side effects of her medications and the impact on her symptoms. We reviewed kayley e dietary changes that she could make it would probably be very helpful. We also reviewed the potent ial for use of acupuncture, acupressure, biofeedback training and a variety of other therapies that carrington richardson is actually quite interested in trying. I also recommended every other day use or if needed daily use of MiraLAX for managing her bowel function as well. 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 She is hoping to be weaned from her narcotic medications over time so that she can avoid the wing e effects of those medicines. I did mention to her that there may be other medications that would be easier to tolerate and potentially more useful, such as antidepressants or other medications with a neurologic mechanism. /[id number]/MODL
== END 2017-08-27 17:40 | disposition home or self-care (01) | DRG 103 ==
LOC: F2W 21:02 → F1N 08-22 17:28 → OBSVTOIN 08-23 11:05
PROVIDERS: ADMIT Internal Medicine; ATTEND Internal Medicine
DX: G43.A1 Cyclical vomiting, in migraine, intractable (principal); R10.11 Right upper quadrant pain; K75.4 Autoimmune hepatitis; G89.29 Other chronic pain; F11.20 Opioid dependence, uncomplicated; K59.03 Drug induced constipation; E87.6 Hypokalemia; E87.0 Hyperosmolality and hypernatremia; K21.9 Gastro-esophageal reflux disease without esophagitis
CPT/HCPCS: 80305; 96374; G0378; J1170; J1200; J2060; J2212; J2405

== ENCOUNTER 2018-07-17 23:33 | Emergency (ER) | payer MEDICAID ==
[2018-07-18] MEDS ORDERED: ONDANSETRON 4 MG/2 ML VIAL IVP ONE (00:03)
[2018-07-18] MEDS ORDERED: NS 1,000 ML IV ONE (00:03)
[2018-07-18] MEDS ORDERED: KETOROLAC 15 MG/1 ML SDV IVP ONE (00:04)
--- NOTE | 2018-07-18 00:04 | EDPHY ---
H & P Stated Complaint: x3 days, L side abd pain, hx autoimmune hepatitis, severe nausea Time Seen by Provider: 07/17/18 23:48 HPI/ROS: Chief Complaint: Abdominal pain HPI: 37-year-old woman with a history of autoimmune hepatitis with chronic abdominal pain is presenting with worsening left sided abdominal pain for the last 3 days. She is well known to our health system. Some nausea but no vomiting. Patient denies constipation. States her last bowel movement was this morning and was normal. No fevers or chills. No urinary urgency or frequency. Pain comes in waves. At worst is 7/10. She is continuing to take her chronic opioid pain medications but states she has been tapering off. She is not currently taking any stool softeners. ROS: 10 systems were reviewed and were negative except those elements noted in the HPI. PMH: Chronic abdominal pain secondary to autoimmune hepatitis Social History: No smoking, no alcohol, no recreational drug use Family History: non-contributory Physical Exam: Gen: Awake, Alert, No Distress HEENT: Nose: no rhinorrhea Eyes: PERRLA, EOMI Mouth: Moist mucosa Neck: Supple, no JVD Chest: nontender, lungs clear to auscultation Heart: S1, S2 normal, no murmur Abd: Soft, non-tender, no guarding Back: no CVA tenderness, no midline tenderness Ext: no edema, non-tender Skin: no rash Neuro: CN II-XII intact, Sensation grossly intact, Strength 5/5 in bilateral upper and lower extremities - Personal History LMP (Females 10-55): 1-7 Days Ago Current Tetanus Diphtheria and Acellular Pertussis (TDAP): Yes Tetanus Vaccine Date: < 10 YEARS - Medical/Surgical History Hx Asthma: No Hx Chronic Respiratory Disease: No Hx Diabetes: No Hx Cardiac Disease: No Hx Renal Disease: No Hx Cirrhosis: Yes Hx Alcoholism: No Hx HIV/AIDS: No Hx Splenectomy or Spleen Trauma: No Other PMH: auto immune hepatitis, cholelithiasis, GERD,lemers syndrome - Social History Smoking Status: Never smoked Constitutional: Initial Vital Signs Temperature (C) 37.0 C 07/17/18 23:44 Heart Rate 91 07/17/18 23:44 Respiratory Rate 18 07/17/18 23:44 Blood Pressure 128/93 H 07/17/18 23:44 O2 Sat (%) 97 07/17/18 23:44 O2 Delivery Mode Room Air Allergies/Adverse Reactions: haloperidol [From Haldol] Allergy (Severe, Verified 07/17/18 23:43) DYSKINESIAS metoclopramide HCl [From Reglan] Allergy (Unknown, Verified 07/17/18 23:43) dyskinesias prochlorperazine edisylate [From Compazine] Allergy (Unknown, Verified 07/17/18 23:43) dyskinesias prochlorperazine maleate [From Compazine] Allergy (Unknown, Verified 07/17/18 23 :43) dyskinesias promethazine HCl [From Phenergan] Allergy (Unknown, Verified 07/17/18 23:43) dyskinesias Home Medications: Medication Instructions Recorded FLUoxetine [Prozac 10 MG (*)] 10 mg PO DAILY 08/04/17 Ondansetron [Zofran Odt] 8 mg PO Q8H PRN 08/04/17 oxyCODONE HCL [Oxycontin] 40 mg PO BID 08/04/17 oxyCODONE IR [Oxycodone Ir (*)] 10 mg PO Q4H PRN 08/04/17 Amitriptyline HCl [Elavil 10 mg 10 mg PO HS #30 tab 08/06/17 (*)] Ondansetron Odt [Zofran Odt 4 mg 4 mg PO Q4HRS PRN #10 tab 08/06/17 (*)] [place] 07/17/18 Medical Decision Making ED Course/Re-evaluation: 37-year-old with chronic right upper quadrant abdominal pain with new left upper quadrant abdominal pain. Abdomen is soft and benign. X-ray shows a large colonic gas bubble with significant constipation. I have counseled the patient on continuing to see to sees narcotic usage. I have also instructed her the importance of continuing with stool softeners. Remainder evaluation is unremarkable. Plan will be for discharge on continuing with stool softeners and constipation management, return for any concerns. Departure - Departure Disposition: Home, Routine, Self-Care Clinical Impression: Constipation Condition: Good Instructions: Constipation (DC), High Fiber Diet (ED) Additional Instructions: Make sure to drink at least eight 8 oz glasses of water a day. You may take MiraLax daily according to package instructions. If you feel constipated drink 1/2 bottle of magnesium citrate. Wait 1-2 hours. If you do not have a bowel movement after that time drink the 2nd half of the bottle. If you continues to be constipated you may use a Fleet's enema, available over- the-counter. Please continue to try to wean yourself off of the opioid pain medications. Follow up with primary care doctor in 2-3 days for further evaluation. Return to the emergency department for increasing abdominal pain, uncontrolled nausea vomiting, fevers, or any other concerns. Referrals: Forrest Joseph MD [Primary Care Provider] - As per Instructions
[2018-07-18 00:47] LABS: PLATELET COUNT 243 10^3/uL (150-400)
[2018-07-18] MEDS ORDERED: MAGNESIUM CITRATE 300 ML BOTTLE PO ONE (01:02)
[2018-07-18 01:10] VITALS: BP 123/89
== END 2018-07-18 01:10 | disposition home or self-care (01) ==
DX: R10.12 Left upper quadrant pain (principal); R11.0 Nausea; K59.00 Constipation, unspecified; E86.9 Volume depletion, unspecified; G89.29 Other chronic pain; Z79.891 Long term (current) use of opiate analgesic; Z86.19 Personal history of other infectious and parasitic diseases
CPT/HCPCS: 96374; J1885; J2405